=== PATIENT | female | born 2000 | race Caucasian/White ===

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

== ENCOUNTER 2019-06-15 18:57 | Emergency (ER) | payer SELFPAY ==
[2019-06-15 19:30] LABS: BASOPHILS % (AUTO) 0.2 %; EOSINOPHILS % (AUTO) 0.4 %; HGB - HEMOGLOBIN 11.4 g/dL (12.0-16.0); LYMPHOCYTES # (AUTO) 1.6 10^3/uL (1.5-3.5); LYMPHOCYTES % (AUTO) 18.5 %; MEAN CORPUSCULAR HEMOGLOBIN 29.1 pg (27.0-31.0); MEAN CORPUSCULAR HGB CONC 32.6 g/dL (32.0-36.0); MEAN CORPUSCULAR VOLUME 89.3 fL (81.0-99.0); MONOCYTES # (AUTO) 0.9 10^3/uL (0.0-1.0); NEUTROPHILS % (AUTO) 69.5 %; PLT - PLATELET COUNT 146 10^3/uL (130-450); RED BLOOD COUNT 3.92 10^6/uL (4.20-5.40); RED CELL DISTRIBUTION WIDTH 12.6 % (12.0-15.0); WHITE BLOOD COUNT 8.6 x10^3/uL (4.8-10.8)
[2019-06-15 19:36] LABS: MUDS CUTOFF CONCENTRATIONS CUTOFF CONC BELOW:
[2019-06-15 19:40] LABS: BILIRUBIN,URINE NEGATIVE (NEGATIVE); CLARITY,URINE CLEAR (CLEAR); GLUCOSE, URINE (UA) NEGATIVE (NEGATIVE); KETONES,URINE (UA) TRACE mg/dL (NEGATIVE); LEUKOCYTE ESTERASE, URINE TRACE (NEGATIVE); NITRITE,URINE NEGATIVE (NEGATIVE); OCCULT BLOOD,URINE NEGATIVE (NEGATIVE); PROTEIN,URINE TRACE mg/dL (NEGATIVE); UROBILINOGEN,URINE 0.2 (NORMAL) E.U./dL (NORMAL)
[2019-06-15 19:41] LABS: HCG UR QUAL NEGATIVE
[2019-06-15 19:41] LABS: ALBUMIN 4.3 g/dL (3.2-5.5); ALBUMIN/GLOBULIN RATIO 1.4 (1.0-2.2); ALKALINE PHOSPHATASE 50 IU/L (42-121); ALT ALANINE AMINOTRANSFERASE 13 IU/L (10-60); AST ASPARTATE AMINOTRANSFERASE 23 IU/L (10-42); BILIRUBIN,TOTAL 0.5 mg/dL (0.2-1.0); BUN - BLOOD UREA NITROGEN 11 mg/dL (6-20); CALCIUM 9.1 mg/dL (8.5-10.3); CARBON DIOXIDE - CO2 26 mmol/L (21-32); CHLORIDE 101 mmol/L (101-111); CREATININE 0.8 mg/dL (0.4-1.0); GFR - MDRD 91 (>89); GLUCOSE 128 mg/dL (70-100); LIPASE 25 U/L (22-51); SODIUM 137 mmol/L (135-145); TOTAL PROTEIN 7.3 g/dL (6.7-8.2)
[2019-06-15] MEDS ORDERED: diphenhydrAMINE INJ 50 MG/ML VIAL IVP STA (19:41)
[2019-06-15] MEDS ORDERED: METOCLOPRAMIDE 10 MG/2 ML VIAL IVP STA (19:41)
--- NOTE | 2019-06-15 19:45 | ED Physician Documentation ---
PD HPI FOCAL NEURO - Stated complaint Stated Complaint: L ARM NUMBNESS/HI BP - Chief complaint Chief Complaint: Neuro - History obtained from History obtained from: Patient - History of Present Illness Timing - onset: Other (This is a very pleasant 19-year-old woman who has a long history of migraines and "and "convulsions. She had a work-up at a neurologic office last year with negative EEG. She was told she did not have epilepsy. 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 Psych: Depression, Anxiety - Past Surgical History Past Surgical History: Yes - Present Medications Home Medications: Ambulatory Orders Medication Instructions Recorded Confirmed SUMAtriptan [Imitrex] 25 mg PO BID PRN #10 tablet 06/15/19 - Allergies Allergies/Adverse Reactions: Allergies Allergy/AdvReac Type Severity Reaction Status Date / Time cetirizine HCl * Allergy Itching Verified 06/15/19 19:04 [From [facility]] - Social History Does the pt smoke?: Yes Smoking Status: Current every day smoker Does the pt drink ETOH?: No Does the pt have substance abuse?: Yes - Immunizations Immunizations are current?: Yes - POLST Patient has POLST: No PD ED PE NORMAL - Vitals Vital signs reviewed: Yes - General General: Alert and oriented X 3, No acute distress - HEENT HEENT: PERRL, EOMI - Neck Neck: Supple, no meningeal sign, No bony TTP - Cardiac Cardiac: RRR, No murmur - Respiratory Respiratory: No respiratory distress, Clear bilaterally - Abdomen Abdomen: Normal bowel sounds, Soft, Non tender - Back Back: No CVA TTP, No spinal TTP - Derm Derm: Normal color, Warm and dry - Extremities Extremities: No edema, No calf tenderness / cord - Neuro Neuro: Alert and oriented X 3, Normal speech - Psych Psych: Normal mood, Normal affect Results - Vitals Vitals: Vital Signs - 24 hr 06/15/19 06/15/19 18:59 20:18 Temperature 36.8 C Heart Rate 105 H 74 Respiratory 17 14 Rate Blood Pressure 141/87 H 101/50 L O2 Saturation 100 96 Oxygen O2 Source Room air - Labs Labs: Laboratory Tests 06/15/19 06/15/19 06/15/19 19:24 19:24 19:30 WBC 8.6 RBC 3.92 L Hgb 11.4 L Hct 35.0 L MCV 89.3 MCH 29.1 MCHC 32.6 RDW 12.6 Plt Count 146 MPV 11.0 H Neut # (Auto) 6.0 Lymph # (Auto) 1.6 [place] # (Auto) 0.9 Eos # (Auto) 0.0 Baso # (Auto) 0.0 Absolute Nucleated RBC 0.00 Nucleated RBC % 0.0 Sodium 137 Potassium 3.2 L Chloride 101 Carbon Dioxide 26 Anion Gap 10.0 BUN 11 Creatinine 0.8 Estimated GFR (MDRD) 91 Glucose 128 H Calcium 9.1 Total Bilirubin 0.5 AST 23 ALT 13 Alkaline Phosphatase 50 Total Protein 7.3 Albumin 4.3 Globulin 3.0 Albumin/Globulin Ratio 1.4 Lipase 25 Urine Color Urine Clarity Urine pH Ur Specific [place] Urine Protein Urine Glucose (UA) Urine Ketones Urine Occult Blood Urine Nitrite Urine Bilirubin Urine Urobilinogen Ur Leukocyte Esterase Urine RBC Urine WBC Ur Squamous Epith Cells Urine Bacteria Ur Microscopic Review Urine Culture Comments Urine HCG, Qual Urine Opiates Screen NEGATIVE Ur Oxycodone Screen NEGATIVE Urine Methadone Screen NEGATIVE Ur Propoxyphene Screen NEGATIVE Ur Barbiturates Screen NEGATIVE Ur Tricyclics Screen NEGATIVE Ur Phencyclidine Scrn NEGATIVE Ur Amphetamine Screen NEGATIVE U Methamphetamines Scrn NEGATIVE U Benzodiazepines Scrn NEGATIVE Urine Cocaine Screen NEGATIVE U Cannabinoids Screen NEGATIVE Ethyl Alcohol < 5.0 06/15/19 19:30 WBC RBC Hgb Hct MCV MCH MCHC RDW Plt Count MPV Neut # (Auto) Lymph # (Auto) [place] # (Auto) Eos # (Auto) Baso # (Auto) Absolute Nucleated RBC Nucleated RBC % Sodium Potassium Chloride Carbon Dioxide Anion Gap BUN Creatinine Estimated GFR (MDRD) Glucose Calcium Total Bilirubin AST ALT Alkaline Phosphatase Total Protein Albumin Globulin Albumin/Globulin Ratio Lipase Urine Color YELLOW Urine Clarity CLEAR Urine pH 6.0 Ur Specific [place] 1.025 Urine Protein TRACE Urine Glucose (UA) NEGATIVE Urine Ketones TRACE Urine Occult Blood NEGATIVE Urine Nitrite NEGATIVE Urine Bilirubin NEGATIVE Urine Urobilinogen 0.2 (NORMAL) Ur Leukocyte Esterase TRACE H Urine RBC None Seen Urine WBC 0-3 Ur Squamous Epith Cells NONE SEEN Urine Bacteria None Seen Ur Microscopic Review INDICATED Urine Culture Comments INDICATED Urine HCG, Qual NEGATIVE Urine Opiates Screen Ur Oxycodone Screen Urine Methadone Screen Ur Propoxyphene Screen Ur Barbiturates Screen Ur Tricyclics Screen Ur Phencyclidine Scrn Ur Amphetamine Screen U Methamphetamines Scrn U Benzodiazepines Scrn Urine Cocaine Screen U Cannabinoids Screen Ethyl Alcohol - Rads (name of study) CT Head Radiology: EMP read contemporaneously (normal) PD MEDICAL DECISION MAKING - ED course ED course: 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 After the administration of Reglan and Benadryl she was quite sleepy but her headache was much better and the neurologic symptoms had resolved. She had never had cranial imaging before so this was done and negative. Departure - Departure Disposition: 01 Home, Self Care Clinical Impression: Migraine Qualifiers: Migraine type: with aura Status migrainosus presence: with status migrainosus Intractability: not intractable Qualified Code(s): G43.101 - Migraine with aura, not intractable, with status migrainosus Condition: Good Record reviewed to determine appropriate education?: Yes Instructions: ED Headache Migraine Prescriptions: SUMAtriptan [Imitrex] 25 mg PO BID PRN #10 tablet PRN Reason: Headache Comments: Call your doctor to arrange a follow-up appointment, make the next available appointment. In the interim, return anytime if worse or if new symptoms develop. Forms: Activity restrictions
[2019-06-15 19:51] LABS: AMPHETAMINE SCREEN,URINE NEGATIVE (NEGATIVE); BACTERIA,URINE None Seen /HPF (None Seen); BENZODIAZEPINES SCREEN, URINE NEGATIVE (NEGATIVE); COCAINE SCREEN URINE NEGATIVE (NEGATIVE); METHADONE SCREEN, URINE NEGATIVE (NEGATIVE); METHAMPHETAMINES SCREEN, URINE NEGATIVE (NEGATIVE); OPIATE SCREEN, URINE NEGATIVE (NEGATIVE); OXYCODONE SCREEN, URINE NEGATIVE (NEGATIVE); PROPOXYPHENE SCREEN, URINE NEGATIVE (NEGATIVE); RBC,URINE None Seen /HPF (0-5); SQUAMOUS EPITHELIAL CELL,UR NONE SEEN (<= Few); TRICYCLIC ANTIDEPRESSANT,URINE NEGATIVE (NEGATIVE)
[2019-06-15 20:19] VITALS: BP 101/50
--- NOTE | 2019-06-15 20:58 | CT Report ---
Reason: headache Procedure Date: 06/15/2019 Accession Number: [id number] / [id number] Procedure: CT - HEAD WO CPT Code: FULL RESULT: EXAM: CT HEAD EXAM DATE: 06/15/2019 08:14 PM. CLINICAL HISTORY: Headache. COMPARISON: None. TECHNIQUE: Multiaxial CT images were obtained from the foramen magnum to the vertex. Reformats: Sagittal and coronal. IV contrast: None. In accordance with CT protocol optimization, one or more of the following dose reduction techniques were utilized for this exam: automated exposure control, adjustment of mA and/or KV based on patient size, or use of iterative reconstructive technique. FINDINGS: PARENCHYMA: No acute hemorrhage, transcortical infarction or mass. Normal chanel-white differentiation. EXTRA-AXIAL SPACES: No extra-axial fluid collections. No midline shift. VENTRICLES/SULCI: Normal for patient age. VASCULAR STRUCTURES: The visible vascular structures are unremarkable. SINUSES: The visible paranasal sinuses and mastoid air cells are unremarkable. ORBITS: Unremarkable. BONES: No displaced acute calvarial fracture. OTHER: None. IMPRESSION: No acute intracranial findings. RADIA
== END 2019-06-15 21:14 | disposition home or self-care (01) ==
LOC: ED 18:57
DX: G43.101 Migraine with aura, not intractable, with status migrainosus (principal); F17.200 Nicotine dependence, unspecified, uncomplicated
CPT/HCPCS: 36415; 70450; 80053; 80320; 81001; 81025; 83690; 85025; 87086; 99284; J1200; J2765; 80306; 81003

== ENCOUNTER 2020-06-11 13:14 | Outpatient (CLI) | payer MEDICAID ==
[2020-06-11 16:07] LABS: BILIRUBIN,URINE NEGATIVE (NEGATIVE); GLUCOSE, URINE (UA) NEGATIVE (NEGATIVE); KETONES,URINE (UA) NEGATIVE (NEGATIVE); LEUKOCYTE ESTERASE, URINE NEGATIVE (NEGATIVE); NITRITE,URINE NEGATIVE (NEGATIVE); OCCULT BLOOD,URINE NEGATIVE (NEGATIVE); PROTEIN,URINE NEGATIVE (NEGATIVE); UROBILINOGEN,URINE 0.2 (NORMAL) E.U./dL (NORMAL)
[2020-06-11 16:14] LABS: CLARITY,URINE CLEAR (CLEAR)
[2020-06-11 16:37] LABS: BACTERIA,URINE None Seen /HPF (None Seen); RBC,URINE None Seen /HPF (0-5); SQUAMOUS EPITHELIAL CELL,UR FEW Squamous (<= Few)
== END 2020-06-11 23:59 | disposition home or self-care (01) ==
LOC: LAB.R 13:14
PROVIDERS: ATTEND Advanced Practice Midwife
DX: Z34.90 Encounter for supervision of normal pregnancy, unspecified, unspecified trimester (principal); Z36.89 Encounter for other specified antenatal screening
CPT/HCPCS: 81001; 87086

== ENCOUNTER 2020-06-25 23:23 | Emergency (ER) | payer MEDICAID ==
[2020-06-26 00:20] LABS: HCG UR QUAL POSITIVE
--- NOTE | 2020-06-26 00:58 | ED Physician Documentation ---
PD HPI FEMALE - Stated complaint Stated Complaint: BLEEDING/12 WKS PREG - Chief complaint Chief Complaint: Abd Pain - History obtained from History obtained from: Patient - History of Present Illness Timing - onset: Enter time (22:30) Timing - details: Abrupt onset Pain level max: 1 Associated symptoms: Pelvic pain (cramping). 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 thus, her current pregn) Recently seen: Not recently seen - Additional information Additional information: this is her first confirmed . approximately 12 weeks . riccardo, while lying in bed, had mild pelvic cramping, then noted small amount vaginal bleeding, dark red without clots. she had small amount systems spec blood on toilet paper after urinating few weeks ago, single episode Review of Systems Constitutional: reports: Reviewed and negative Cardiac: reports: Reviewed and negative Respiratory: reports: Reviewed and negative GI: denies: Abdominal Pain, Nausea, Vomiting, Constipation, Diarrhea : reports: Vaginal bleeding, Now EGA (12 weeks). 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: Ovarian cysts Psych: Depression, Anxiety - Past Surgical History Past Surgical History: Yes - Present Medications Home Medications: Ambulatory Orders Medication Instructions Recorded Confirmed SUMAtriptan [Imitrex] 25 mg PO BID PRN #10 tablet 06/15/19 - Allergies Allergies/Adverse Reactions: Allergies Allergy/AdvReac Type Severity Reaction Status Date / Time cetirizine HCl * Allergy Itching Verified 06/25/20 23:33 [From [facility], [place]] - Social History Does the pt smoke?: No Smoking Status: Former smoker Does the pt drink ETOH?: No Does the pt have substance abuse?: Yes - Immunizations Immunizations are current?: Yes - POLST Patient has POLST: No PD ED PE NORMAL - Vitals Vital signs reviewed: Yes - General General: Alert and oriented X 3, No acute distress, Well developed/nourished - Cardiac Cardiac: RRR, No murmur - Respiratory Respiratory: No respiratory distress, Clear bilaterally - Abdomen Abdomen: Soft, Non tender, Non distended - Back Back: No CVA TTP Results - Vitals Vitals: Vital Signs - 24 hr 06/25/20 06/26/20 06/26/20 23:28 01:44 04:15 Temperature 36.8 C 37.0 C 36.8 C Heart Rate 88 65 72 Respiratory 16 14 16 Rate Blood Pressure 129/82 H 105/59 L 109/66 O2 Saturation 100 100 98 Oxygen O2 Source Room air - Labs Labs: Laboratory Tests 06/26/20 06/26/20 00:04 01:59 Ur Specific [place] 1.025 Urine HCG, Qual POSITIVE Blood Type O POSITIVE - Rads (name of study) pelvic US Radiology: Prelim report reviewed, See rad report PD MEDICAL DECISION MAKING - ED course Complexity details: reviewed results, re-evaluated patient, considered differential, d/w patient Departure - Departure Disposition: 01 Home, Self Care Clinical Impression: Threatened Condition: Good Instructions: ED Miscarriage Poss Comments: Your blood type is O Positive. Your pelvic ultrasound is normal, showing a healthy without evidence of any complications. Because you are having some pelvic cramping and vaginal bleeding, you have been provided printed instructions regarding the potential for possible miscarriage, but realize that it is not unusual to have bleeding/cramping early in an otherwise normal . Discharge Date/Time: 06/26/20 04:16
[2020-06-26 04:16] VITALS: BP 109/66
--- NOTE | 2020-06-26 10:23 | Ultrasound Report ---
PROCEDURE: OB First Trimester INDICATIONS: 12 weeks ; pelvic cramping, vag. bleeding OUTSIDE/PRIOR DATING DATA: Last menstrual period (LMP): 04/02/2020. LMP-based estimated date of delivery (BRANDIE): 01/07/2021. First dating scan (date and location): 05/27/2020. Estimated date of delivery (BRANDIE) from first dating scan: 01/07/2021. TECHNIQUE: Real-time scanning was performed of the fetus and maternal pelvic organs, with image documentation. COMPARISON: 05/27/2020 FINDINGS: Embryo: Single living intrauterine has a heart rate of 165 bpm. The crown-rump length is 5 .5 cm corresponding to a 12 week 1 day gestation. The placenta is developing anterior. No retroplacen caroline hemorrhage. Measurement variability in dating: +/- 4 weeks by LMP, +/- 7 days by mean sac diameter (use before 6 weeks gestation if crown-rump length not able to be measured), +/- 5 days by crown-rump length (6-12 weeks gestation). Maternal organs: The cervix is closed. No thad-Gestational hemorrhage. Ovaries appear normal with an involuting left ovarian corpus luteum. IMPRESSION: 1. Single living intrauterine . 2. Appropriate growth since the prior study. 3. Closed cervix and no subchorionic hemorrhage. 4. Concordant with preliminary report. Reviewed by: Tonya Vaca MD on 06/26/2020 10:22 AM PDT Approved by: Tonya Vaca MD on 06/26/2020 10:22 AM PDT Station ID: [id number]
== END 2020-06-26 04:16 | disposition home or self-care (01) ==
LOC: ED 23:23
DX: O20.0 Threatened abortion (principal); Z3A.12 12 weeks gestation of pregnancy; Z87.891 Personal history of nicotine dependence
CPT/HCPCS: 36415; 76801; 81025; 86900; 86901; 99284

== ENCOUNTER 2020-07-03 10:00 | Outpatient (CLI) | payer MEDICAID ==
[2020-07-03 11:45] LABS: BASOPHILS # (AUTO) 0.1 10^3/uL (0.0-0.1); BASOPHILS % (AUTO) 0.6 %; EOSINOPHILS # (AUTO) 0.2 10^3/uL (0.0-0.7); EOSINOPHILS % (AUTO) 2.6 %; HGB - HEMOGLOBIN 12.1 g/dL (12.0-16.0); LYMPHOCYTES # (AUTO) 1.6 10^3/uL (1.5-3.5); LYMPHOCYTES % (AUTO) 20.3 %; MEAN CORPUSCULAR HEMOGLOBIN 30.8 pg (27.0-31.0); MEAN CORPUSCULAR HGB CONC 34.9 g/dL (32.0-36.0); MEAN CORPUSCULAR VOLUME 88.3 fL (81.0-99.0); MEAN PLATELET VOLUME 11.4 fL (7.9-10.8); MONOCYTES # (AUTO) 0.6 10^3/uL (0.0-1.0); MONOCYTES % (AUTO) 7.4 %; NEUTROPHILS # (AUTO) 5.5 10^3/uL (1.5-6.6); NEUTROPHILS % (AUTO) 68.6 %; PLT - PLATELET COUNT 177 10^3/uL (130-450); RED BLOOD COUNT 3.93 10^6/uL (4.20-5.40); RED CELL DISTRIBUTION WIDTH 12.2 % (12.0-15.0)
[2020-07-04 12:03] LABS: HEPATITIS B SURFACE ANTIGEN NON-REACTIVE (NON-REACTIVE); HEPATITIS C ANTIBODY NON-REACTIVE (NON-REACTIVE)
[2020-07-04 13:02] LABS: HIV AG/AB 4TH GEN NON-REACTIVE (NON-REACTIVE)
== END 2020-07-03 10:01 | disposition home or self-care (01) ==
LOC: LAB 10:00
PROVIDERS: ATTEND Advanced Practice Midwife
DX: Z34.90 Encounter for supervision of normal pregnancy, unspecified, unspecified trimester (principal); Z36.89 Encounter for other specified antenatal screening
CPT/HCPCS: 36415; 81599; 85025; 86762; 86787; 86803; 86850; 86900; 86901; 87340; 87389

== ENCOUNTER 2020-08-28 09:43 | Outpatient (CLI) | payer MEDICAID ==
--- NOTE | 2020-08-28 11:23 | Ultrasound Report ---
PROCEDURE: OB Detailed Eval INDICATIONS: SCREENING OUTSIDE/PRIOR DATING DATA: Last menstrual period (LMP): 04/02/2020. LMP-based estimated date of delivery (BRANDIE): 01/07/2021. First dating scan (date and location): 05/27/2020. Estimated date of delivery (BRANDIE) from first dating scan: 01/07/2021 +/- 5 days.. TECHNIQUE: Real-time scanning was performed of the fetus, with image documentation and biometric measurements. Endovaginal scanning: Not needed COMPARISON: All prior OB ultrasound studies for this . FINDINGS: General: A single living intrauterine gestation is present. Presentation: Variable at this time Placenta: Placental position is anterior, without previa. Amniotic fluid index: 16.8 cm, 72nd percentile for gestational age. heart rate: 165 beats per minute. Maternal cervical canal: 3.2 cm long; normal length is 2.5 cm or more. biometrics: Biparietal diameter: 5.1 cm, 21 weeks 3 days Head circumference: 18.9 cm, 21 weeks 0 days Abdominal circumference: 16.0 cm, 21 weeks 1 day Femur length: 3.1 cm, 19 weeks 5 days Estimated gestational age from initial scan: 21 weeks 1 day. Composite gestational age from present scan: 20 weeks 5 days Estimated weight and percentile: 360 g, 17th percentile Measurement variability in biometric dating: +/- 10 days from 12-20 weeks gestation, +/- 2 weeks from 20-30 weeks gestation, +/- 3 weeks at 30 weeks gestation or later. Anatomic survey: Neuro: Ventricles are normal at less than 10 mm. Cisterna magna is normal at 3-11 mm. Cerebellum i s normal in size and morphology. Nuchal skin fold: Normal at less than 6 mm between 14 and 20 weeks gestational age. Face: Nose and lips, facial profile are normal. Spine: No evidence for spina bifida. Heart: 4-chambered heart is present, with normal ventricular outflow tracts. Diaphragm: Diaphragm is intact. Stomach: Left-sided stomach is present. Kidneys: No hydronephrosis. Normal is less than 5 mm in 2nd trimester, less than 7 mm in 3rd trimester. Cord: 3 vessel cord has orthotopic insertion. Bladder: Normal in size. Extremities: All 4 extremities are visualized. IMPRESSION: Current presentation is variable. Appropriate interval growth, normal amniotic fluid volume. No anomaly seen. Delivery date is projected to be centered on 01/07/2021, +/- 5 days. Reviewed by: Darci Linn MD on 08/28/2020 11:21 AM PST Approved by: Darci Linn MD on 08/28/2020 11:21 AM PST Station ID: [id number]
== END 2020-08-28 09:44 | disposition home or self-care (01) ==
LOC: DI 09:43
PROVIDERS: ATTEND Nurse Practitioner Obstetrics & Gynecology
DX: Z34.92 Encounter for supervision of normal pregnancy, unspecified, second trimester (principal); Z36.89 Encounter for other specified antenatal screening
CPT/HCPCS: 76811

== ENCOUNTER 2020-10-01 07:39 | Outpatient (CLI) | payer MEDICAID ==
[2020-10-01 08:52] LABS: BILIRUBIN,URINE NEGATIVE (NEGATIVE); GLUCOSE, URINE (UA) NEGATIVE (NEGATIVE); KETONES,URINE (UA) NEGATIVE (NEGATIVE); LEUKOCYTE ESTERASE, URINE NEGATIVE (NEGATIVE); NITRITE,URINE NEGATIVE (NEGATIVE); OCCULT BLOOD,URINE NEGATIVE (NEGATIVE); PROTEIN,URINE NEGATIVE (NEGATIVE); UROBILINOGEN,URINE 0.2 (NORMAL) E.U./dL (NORMAL)
[2020-10-01 08:55] LABS: CLARITY,URINE HAZY (CLEAR)
[2020-10-01 08:59] LABS: BASOPHILS # (AUTO) 0.1 10^3/uL (0.0-0.1); BASOPHILS % (AUTO) 0.5 %; EOSINOPHILS # (AUTO) 0.1 10^3/uL (0.0-0.7); EOSINOPHILS % (AUTO) 0.5 %; HGB - HEMOGLOBIN 11.2 g/dL (12.0-16.0); LYMPHOCYTES # (AUTO) 1.2 10^3/uL (1.5-3.5); LYMPHOCYTES % (AUTO) 10.6 %; MEAN CORPUSCULAR HEMOGLOBIN 30.9 pg (27.0-31.0); MEAN CORPUSCULAR VOLUME 90.9 fL (81.0-99.0); MEAN PLATELET VOLUME 10.6 fL (7.9-10.8); MONOCYTES # (AUTO) 0.9 10^3/uL (0.0-1.0); MONOCYTES % (AUTO) 7.8 %; NEUTROPHILS # (AUTO) 8.6 10^3/uL (1.5-6.6); NEUTROPHILS % (AUTO) 78.3 %; PLT - PLATELET COUNT 168 10^3/uL (130-450); RED BLOOD COUNT 3.62 10^6/uL (4.20-5.40); RED CELL DISTRIBUTION WIDTH 13.4 % (12.0-15.0)
[2020-10-01 09:04] LABS: BACTERIA,URINE Few /HPF (None Seen); RBC,URINE 0-5 /HPF (0-5); SQUAMOUS EPITHELIAL CELL,UR MOD Squamous (<= Few)
[2020-10-01 09:09] LABS: ALBUMIN 3.5 g/dL (3.2-5.5); BILIRUBIN,TOTAL 0.4 mg/dL (0.2-1.0); CALCIUM 9.3 mg/dL (8.5-10.3); CREATININE 0.4 mg/dL (0.4-1.0); TOTAL PROTEIN 6.9 g/dL (6.7-8.2)
[2020-10-01 09:23] LABS: CREATININE,URINE 23.1 mg/dL
[2020-10-01 09:24] LABS: TOTAL PROTEIN,URINE TIMED < 6 mg/dL
[2020-10-01 09:58] VITALS: BP 124/74
[2020-10-01 10:21] LABS: C. PNEUMONIAE- RESP PCR PANEL NOT DETECTED
[2020-10-01 10:54] LABS: CANDIDA GROUP DNA NEGATIVE (NEGATIVE); CANDIDA KRUSEI DNA NEGATIVE (NEGATIVE); TRICHOMONAS VAGINALIS DNA NEGATIVE (NEGATIVE)
--- NOTE | 2020-10-01 11:00 | PROVIDER PROGRESS NOTE ---
- HPI Chief Complaint: Pain, non-labor Current : Current EDU 01/07/21 Gestation 26 Weeks and 0 Days 1 Para 0 Vital Signs Temperature 36.9 C 10/01/20 07:57 Heart Rate 111 H 10/01/20 07:57 Respiratory Rate 24 10/01/20 07:57 Blood Pressure 119/86 H 10/01/20 07:57 O2 Saturation 99 10/01/20 07:57 Temperature 36.9 C 10/01/20 08:02 Heart Rate 85 10/01/20 09:58 Respiratory Rate 18 10/01/20 09:58 Blood Pressure 124/74 10/01/20 09:58 O2 Saturation 98 10/01/20 09:58 - Procedures OB Procedure Performed: NST Diagnosis/Indication for NST: Other - Plan Plan: S: Malissa is a 22yo @ 26.0wks gestation by LMP c/w 7.6wk U/S presents to [facility] with c/o menstrual like cramping, RUQ pain, headache, SOB with exertion, and intermittent dizziness. She reports intermittent menstrual-like cramping since last night which she noted most significant this morning when she woke up. She reports the discomfort seems to take her breath away and lasts approximately 7-10 seconds and then resolves. She denies vaginal bleeding or leakage of fluid. She reports +FM. She reports a dull RUQ pain that she notices most when she is laying down at the end of the day. She describes the pain as a dull ache and denies feeling sharp pain. She is unable to correlate the pain with any activity and denies improvement or worsening with eating. She states her body has felt somewhat hot today but has not been febrile and she is afebrile at this time. She states her SOB mostly occurs with exertion and she notices her heart rate increasing when she walks even short distances. She denies feeling faint but does report when this happens she feels slightly dizzy. She denies N/V. She denies diarrhea or constipation. She states she did have intercourse last night. 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 She has no known close contacts with any positive COVID-19 individuals or sick people. 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 She states with the plexiglass barrier, both herself and the patient being masked and distant, and her time of exposure being brief, there was not noted to be a significant concern. O: BP 117-124/70-86; HR 111 initially but decreased to 85 with rest. O2 97-99% on room air. T 36.9 Normocephalic, atraumatic. PERRLA, Heart RRR w/o M/G/R, lungs CTAB, abdomen gravid, soft, and nontender. No tenderness, guarding or rebound tenderness noted upon palpation. Bilateral LE's no edema. NST meets criteria for reactivity at 26wks gestation. FHR baseline 130s, moderate variability, + accels, no decels No contractions palpated or appreciated via tocometry FFN deferred secondary to recent intercourse. UA: protein - neg nitrite - neg leukocyte - neg squamous epithelial cells - neg urine bacteria - few specific gravity - 1.010 urine culture - not indicated CMP: Creatinine 0.4 GFR 201 AST 20 ALT 16 Urine protein/creatinine ratio - unreportable CBC: WBC 11.0 Hgb 11.2 Hct 32.9 PLT 168 Rapid COVID-19 - negative Full Respiratory PCR panel - NEGATIVE A/P: 20yo @ 26.0wks gestation by LMP c/w 7.6wk U/S 1. RUQ pain - non pathologic. Reassured by BP normotensive. All labs WNL. Discussed normal aches and pains/discomforts of with patient at length and reviewed when to present. Exam and pt pain description r/o concern for gallbladder. 2. SEWELL - non pathologic. Reassured again by normal BPs and all labs WNL. Advised increased fluid intake and rest. Discusses addition of fluid with electrolytes. Encouraged Tylenol 1000mg q 8hrs PRN headache. 3. Shortness of breath - appears to be nonpathologic as patient's O2 saturation are WNL, lung sounds are clear to all quadrants bilaterally. Infection labs WNL. Advised pt to rest and hydrate over the next 2 days. Pt has f/u appt early next week - advised her to keep this appt and if symptoms persist or worsen, please return. Pt has emergency contact information. Consider Holter monitor if sympt oms persist. Pt verbalized understanding and agrees to above plan. She denies further questions or concerns at this time.
== END 2020-10-01 10:35 | disposition home or self-care (01) ==
LOC: WFO 07:39 → FBP 07:41 → WFO 10:35
PROVIDERS: ATTEND Nurse Practitioner Obstetrics & Gynecology
DX: O99.891 Other specified diseases and conditions complicating pregnancy (principal); R10.11 Right upper quadrant pain; R51.9 Headache, unspecified; R06.02 Shortness of breath; Z3A.26 26 weeks gestation of pregnancy; Z20.828 Contact with and (suspected) exposure to other viral communicable diseases
CPT/HCPCS: 0202U; 80053; 81001; 82570; 84156; 85025; 87481; 87661; 87801; 99213; 87086

== ENCOUNTER 2020-10-09 14:55 | Outpatient (CLI) | payer MEDICAID ==
[2020-10-09 16:22] LABS: HGB - HEMOGLOBIN 10.6 g/dL (12.0-16.0); MEAN CORPUSCULAR HEMOGLOBIN 30.5 pg (27.0-31.0); MEAN CORPUSCULAR HGB CONC 32.7 g/dL (32.0-36.0); MEAN CORPUSCULAR VOLUME 93.1 fL (81.0-99.0); MEAN PLATELET VOLUME 10.7 fL (7.9-10.8); RED BLOOD COUNT 3.48 10^6/uL (4.20-5.40); RED CELL DISTRIBUTION WIDTH 13.2 % (12.0-15.0); WHITE BLOOD COUNT 11.8 x10^3/uL (4.8-10.8)
== END 2020-10-09 14:56 | disposition home or self-care (01) ==
LOC: LAB 14:55
PROVIDERS: ATTEND Advanced Practice Midwife
DX: Z34.90 Encounter for supervision of normal pregnancy, unspecified, unspecified trimester (principal); Z36.89 Encounter for other specified antenatal screening
CPT/HCPCS: 36415; 82950; 85027

== ENCOUNTER 2020-10-13 08:36 | Outpatient (CLI) | payer MEDICAID ==
--- NOTE | 2020-10-13 18:49 | Ultrasound Report ---
PROCEDURE: OB F/U or Repeat INDICATIONS: UTERINE SIZE/DATE DISCREPANCY OUTSIDE/PRIOR DATING DATA: Last menstrual period (LMP): 04/02/2020. LMP-based estimated date of delivery (BRANDIE): 01/07/2021. First dating scan (date and location): 05/27/2020. Estimated date of delivery (BRANDIE) from first dating scan: 01/07/2021. TECHNIQUE: Real-time scanning was performed of the fetus, with image documentation and biometric measurements. Endovaginal scanning: Not performed COMPARISON: Multiple priors, the most recent from 08/28/2020 FINDINGS: General: A single living intrauterine gestation is present. Presentation: Vertex Placenta: Placental position is anterior, without previa. Amniotic fluid index: 14 cm, 42nd percentile for gestational age. heart rate: 143 beats per minute. Maternal cervical canal: 3.7 cm long; normal length is 2.5 cm or more. biometrics: Biparietal diameter: 7.0 cm, 28 weeks, 1 day Head circumference: 25.7 cm, 27 weeks, 6 days Abdominal circumference: 22.3 cm, 26 weeks, 5 days Femur length: 4.6 cm, 25 weeks, 2 days , 0.9 percentile. Humerus length 4.2 cm, 25 weeks, 0 days, 0.7 percentile Estimated gestational age from initial scan: 27 weeks, 5 days. Composite gestational age from present scan: 26 weeks, 4 days Estimated weight and percentile: 930 g, sixth percentile Measurement variability in biometric dating: +/- 10 days from 12-20 weeks gestation, +/- 2 weeks from 20-30 weeks gestation, +/- 3 weeks at 30 weeks gestation or more. Other: Systolic to diastolic umbilical artery ratios are 3.8, 3.1, and 2.8.. IMPRESSION: 1. Single living intrauterine . 2. Since the prior study, there is been asymmetric and less than expected interval growth. Composite gestational age is 26 weeks, 4 days, 8 days behind the expected, but the estimated weight is at the 6th percentile. 3. Additionally, the femur length and humerus length are less than the 1st percentile raising possibi lity of other syndromes. 4. S/D umbilical artery ratio of 3.7 in the cord at the insertion. 5. Consider referral to maternal medicine. Reviewed by: Tonya Vaca MD on 10/13/2020 6:48 PM PST Approved by: Tonya Vaca MD on 10/13/2020 6:48 PM PST Station ID: [id number]
== END 2020-10-13 08:37 | disposition home or self-care (01) ==
LOC: DI 08:36
PROVIDERS: ATTEND Advanced Practice Midwife
DX: O26.842 Uterine size-date discrepancy, second trimester (principal); Z3A.26 26 weeks gestation of pregnancy

== ENCOUNTER 2020-10-22 17:01 | Observation (INO) | payer MEDICAID ==
[2020-10-22 17:57] LABS: BILIRUBIN,URINE NEGATIVE (NEGATIVE); GLUCOSE, URINE (UA) NEGATIVE (NEGATIVE); KETONES,URINE (UA) NEGATIVE (NEGATIVE); LEUKOCYTE ESTERASE, URINE TRACE (NEGATIVE); NITRITE,URINE NEGATIVE (NEGATIVE); OCCULT BLOOD,URINE NEGATIVE (NEGATIVE); PROTEIN,URINE NEGATIVE (NEGATIVE); UROBILINOGEN,URINE 0.2 (NORMAL) E.U./dL (NORMAL)
[2020-10-22 17:58] LABS: CLARITY,URINE HAZY (CLEAR)
[2020-10-22 18:13] LABS: RUPTURE OF MEMBRANES PLUS NEGATIVE (NEGATIVE)
[2020-10-22 18:20] LABS: BACTERIA,URINE Few /HPF (None Seen); RBC,URINE 0-5 /HPF (0-5); SQUAMOUS EPITHELIAL CELL,UR MANY Squamous (<= Few)
--- NOTE | 2020-10-22 19:30 | PROVIDER PROGRESS NOTE ---
- HPI Chief Complaint: Leakage of vaginal fluid Current : Current EDU 01/07/21 Gestation 29 Weeks and 0 Days 1 Para 0 Vital Signs Temperature 36.9 C 10/22/20 17:20 Heart Rate 77 10/22/20 17:20 Respiratory Rate 18 10/22/20 17:20 Blood Pressure 123/67 10/22/20 17:20 O2 Saturation 99 10/22/20 17:20 Temperature 36.9 C 10/22/20 17:20 Heart Rate 77 10/22/20 17:20 Respiratory Rate 18 10/22/20 17:20 Blood Pressure 123/67 10/22/20 17:20 O2 Saturation 99 10/22/20 17:20 - Procedures NST Procedure: NST Procedure Start Date 10/22/20 Start Time 17:18 Stop Time 17:57 Vibroacoustic Stimulation Used No Patient States Movement Yes - Plan Plan: S: Malissa is a 20yo at 29.0wks gestation who presents to labor and delivery triage today for leakage of vaginal fluid. She reports she felt her first "gush" on ankush, and then again the next night, then somewhat inte rmittently. She has not consistently needed a pad, but does report copious amounts of vaginal discharge. She reports movement, and denies any vaginal bleeding or contractions. She denies anything in the vagina for over 24 hours. Afebrile O: On admit to triage: Nitrizine- neg ROM+- neg Wet mount- neg GC/CT- sent Speculum exam per RN- no pooling, no visual changes to the cervix FFN- positive UA neg at 1900 per CNM: Nitrizine- positive Pooling- neg Valsalva- neg ROM+- second swab collected, awaiting results SVE: 1.5/70/-2/mid/soft FHTs: 135 baseline; moderate variability, 10x10 accels, no decels Utx: Uterine irritability noted, approx q 3-5mins. Pt denies sensation. Soft to palpation. A: 20yo at 29.0 wks- rule out ROM vs PTL FFN- positive Nitrizine- positive P: Continuous monitoring Await ROM+ Transvaginal US for cervical length- STAT US Limited for VALORIE- STAT MD consulted
[2020-10-22 19:40] LABS: RUPTURE OF MEMBRANES PLUS NEGATIVE (NEGATIVE)
[2020-10-22] MEDS ORDERED: BETAMETHASONE 30 MG/5 ML VIAL IM ONE (20:24)
[2020-10-22] MEDS ORDERED: LACTATED RINGERS 1,000 ML IV ONE (20:29)
--- NOTE | 2020-10-22 20:54 | Ultrasound Report ---
PROCEDURE: OB Limited INDICATIONS: VALORIE OUTSIDE/PRIOR DATING DATA: Last menstrual period (LMP): 04/02/2020. LMP-based estimated date of delivery (BRANDIE): 01/07/2021. First dating scan (date and location): 05/27/2020. Estimated date of delivery (BRANDIE) from first dating scan: 01/07/2021. TECHNIQUE: Real-time scanning was performed of the fetus, with image documentation. Endovaginal scanning: Performed. COMPARISON: 10/13/2020, 08/28/2020, 06/26/2020, 05/27/2020. FINDINGS: A single living intrauterine gestation is present. Presentation: Cephalic Placenta: Placental position is anterior, without previa. Amniotic fluid index: 15.4 cm, 57th percentile for gestational age. heart rate: 149 beats per minutes. Maternal cervical canal: Approximately 0.4 cm long; normal length is 2.5 cm or more. There is marked funneling along the internal cervical os. There is also a small amount of endocervical fluid. Estimated gestational age from initial scan: 29 weeks 0 days. IMPRESSION: 1. Single living imaging demonstrated in cephalic position. 2. Marked foreshortening of the cervix with a close segment measuring approximately 0.4 cm in length which also demonstrates a small amount of intermittent endocervical fluid. Marked cervical funneling is demonstrated along the internal os. The findings are highly suspicious for an incompetent cervix a nd correlation is recommended with clinical exam. 3. Amniotic fluid index within normal limits. Preliminary report given by the space technologist to nurse Sara Parikh on 10/22/2020 at 8:10 PM. Reviewed by: Vickey Nieto MD on 10/22/2020 8:53 PM PST Approved by: Vickey Nieto MD on 10/22/2020 8:53 PM PST Station ID: [id number]
--- NOTE | 2020-10-22 21:31 | PROVIDER PROGRESS NOTE ---
Subjective - Prog Note Date Prog Note Date: 10/22/20 Prog Note Time: 21:24 - Subjective Pt reports feeling: No change Subjective: S: Malissa is resting in bed with jacob Mendez supportive at bedside. She reports some vaginal discomfort after the US and SVEs. Denies abdominal discomfort. O: US findings: VALORIE: 15.4, 56.8% (max vertical pocket 4.6cm) Cervical length- .44cm Placenta- intact 2100: SVE: 1.5/70/-2/mid/soft- cervical body is felt around fingertip approx 1.5-2cm. Soft to palpation. head felt on digital exam FHTs: 135 baseline; moderate variability, 10x10 accels, no decels Utx: Uterine irritability noted, decreased in frequency. Pt denies sensation. Soft to palpation. Betamethasone 12mg IM dose 1 of 2 given at approx 2030, second dose in 24 hours A: 20yo at 29.0 wks- threatened PTL VALORIE- wnl, not suspecting ROM FFN- positive No cervical change MD consulted P: Monitoring for 30 mins Q4h (so 2100, 0100, 0500, and approx 0800), or anytime uterine activity is reported by patient Observation status in hospital overnight Will recheck SVE in AM, or sooner PRN Consult with MFM in AM If uterine activity or cervical change, will consider nifidipine and transfer of care to higher level facility Objective - Vital Signs/Intake & Output Vital Signs: Vital Signs x48h Temp Pulse Resp BP Pulse Ox 10/22/20 19:28 37.3 C 77 16 123/81 H 100 10/22/20 17:20 36.9 C 77 18 123/67 99 - Lab Results Other Labs: Lab Results x24hrs 10/22/20 10/22/20 10/22/20 Range/Units 19:09 17:28 17:28 Urine Color Urine Clarity (CLEAR) Urine pH (5.0-7.5) PH Ur Specific [place] (1.002-1.030) Urine Protein (NEGATIVE) mg/dL Urine Glucose (UA) (NEGATIVE) mg/dL Urine Ketones (NEGATIVE) mg/dL Urine Occult Blood (NEGATIVE) Urine Nitrite (NEGATIVE) Urine Bilirubin (NEGATIVE) Urine Urobilinogen (NORMAL) E.U./dL Ur Leukocyte Esterase (NEGATIVE) Urine RBC (0-5) /HPF Urine WBC (0-5) /HPF Ur Squamous Epith Cells (<= Few) Urine Bacteria (None Seen) /HPF Urine Culture Comments Membranes Rupture NEGATIVE NEGATIVE (NEGATIVE) Fibronectin POSITIVE (NEGATIVE) 10/22/20 Range/Units 17:10 Urine Color YELLOW Urine Clarity HAZY (CLEAR) Urine pH 6.0 (5.0-7.5) PH Ur Specific [place] 1.025 (1.002-1.030) Urine Protein NEGATIVE (NEGATIVE) mg/dL Urine Glucose (UA) NEGATIVE (NEGATIVE) mg/dL Urine Ketones NEGATIVE (NEGATIVE) mg/dL Urine Occult Blood NEGATIVE (NEGATIVE) Urine Nitrite NEGATIVE (NEGATIVE) Urine Bilirubin NEGATIVE (NEGATIVE) Urine Urobilinogen 0.2 (NORMAL) (NORMAL) E.U./dL Ur Leukocyte Esterase TRACE H (NEGATIVE) Urine RBC 0-5 (0-5) /HPF Urine WBC 0-3 (0-5) /HPF Ur Squamous Epith Cells MANY Squamous H (<= Few) Urine Bacteria Few (None Seen) /HPF Urine Culture Comments NOT INDICATED Membranes Rupture (NEGATIVE) Fibronectin (NEGATIVE)
[2020-10-22 22:11] LABS: CANDIDA GROUP DNA NEGATIVE (NEGATIVE); CANDIDA KRUSEI DNA NEGATIVE (NEGATIVE); TRICHOMONAS VAGINALIS DNA NEGATIVE (NEGATIVE)
[2020-10-22 22:54] LABS: TRICHOMONAS VAGINALIS DNA NEGATIVE (NEGATIVE)
[2020-10-23] MEDS ORDERED: LACTATED RINGERS 1,000 ML IV ONE (01:57)
[2020-10-23 07:31] LABS: BASOPHILS % (AUTO) 0.2 %; HGB - HEMOGLOBIN 10.3 g/dL (12.0-16.0); LYMPHOCYTES % (AUTO) 7.4 %; MEAN CORPUSCULAR HEMOGLOBIN 30.2 pg (27.0-31.0); MEAN CORPUSCULAR HGB CONC 32.9 g/dL (32.0-36.0); MEAN CORPUSCULAR VOLUME 91.8 fL (81.0-99.0); MEAN PLATELET VOLUME 10.9 fL (7.9-10.8); MONOCYTES # (AUTO) 0.4 10^3/uL (0.0-1.0); MONOCYTES % (AUTO) 2.9 %; NEUTROPHILS # (AUTO) 11.9 10^3/uL (1.5-6.6); PLT - PLATELET COUNT 166 10^3/uL (130-450); RED BLOOD COUNT 3.41 10^6/uL (4.20-5.40); RED CELL DISTRIBUTION WIDTH 13.1 % (12.0-15.0); WHITE BLOOD COUNT 13.6 x10^3/uL (4.8-10.8)
--- NOTE | 2020-10-23 08:46 | PROVIDER PROGRESS NOTE ---
Subjective - Prog Note Date Prog Note Date: 10/23/20 Prog Note Time: 08:38 - Subjective Pt reports feeling: No change Subjective: S: Malissa is resting in bed eating breakfast with jacob Mendez at bedside, supportive. She denies contractions this morning. Denies LOF or VB O: SVE: 1.5/70/-2, head not well applied FHTs: 125, moderate variability, 10x10 accels, no decels Utx: irregular and mild A: 20yo at 29.1wks gestation No cervical change, although head is higher in pelvis this morning Utx- irregular and mild Consult with and Mohan HORN completed Recommendations: Monitor patient as Inpatient Obs for 24 hours after second betamethasone injection Weekly cervical exams Plan: Vital signs Qshift monitoring Qshift Contraction monitoring Q4H I/O Objective - Vital Signs/Intake & Output Intake & Output: Intake & Output 10/20/20 10/21/20 10/22/20 10/23/20 23:59 23:59 23:59 23:59 Intake Total 1000 1000 Output Total 850 Balance 1000 150 - Lab Results Fish Bones: 10/23/20 07:23 Other Labs: Lab Results x24hrs 10/23/20 10/22/20 10/22/20 Range/Units 07:23 19:09 17:28 WBC 13.6 H (4.8-10.8) x10^3/uL RBC 3.41 L (4.20-5.40) 10^6/uL Hgb 10.3 L (12.0-16.0) g/dL Hct 31.3 L (37.0-47.0) % MCV 91.8 (81.0-99.0) fL MCH 30.2 (27.0-31.0) pg MCHC 32.9 (32.0-36.0) g/dL RDW 13.1 (12.0-15.0) % Plt Count 166 (130-450) 10^3/uL MPV 10.9 H (7.9-10.8) fL Neut # (Auto) 11.9 H (1.5-6.6) 10^3/uL Lymph # (Auto) 1.0 L (1.5-3.5) 10^3/uL Pershing # (Auto) 0.4 (0.0-1.0) 10^3/uL Eos # (Auto) 0.0 (0.0-0.7) 10^3/uL Baso # (Auto) 0.0 (0.0-0.1) 10^3/uL Absolute Nucleated RBC 0.00 x10^3/uL Nucleated RBC % 0.0 /100WBC Urine Color Urine Clarity (CLEAR) Urine pH (5.0-7.5) PH Ur Specific Bea[place]ont (1.002-1.030) Urine Protein (NEGATIVE) mg/dL Urine Glucose (UA) (NEGATIVE) mg/dL Urine Ketones (NEGATIVE) mg/dL Urine Occult Blood (NEGATIVE) Urine Nitrite (NEGATIVE) Urine Bilirubin (NEGATIVE) Urine Urobilinogen (NORMAL) E.U./dL Ur Leukocyte Esterase (NEGATIVE) Urine RBC (0-5) /HPF Urine WBC (0-5) /HPF Ur Squamous Epith Cells (<= Few) Urine Bacteria (None Seen) /HPF Urine Culture Comments Membranes Rupture NEGATIVE (NEGATIVE) C. glabrata (PCR) (NEGATIVE) C. krusei (PCR) (NEGATIVE) Jade species DNA (NEGATIVE) Chlam trachomat DNA PCR (NEGATIVE) N.gonorrhoeae DNA (PCR) (NEGATIVE) T. vaginalis (PCR) (NEGATIVE) Bact Vaginosis (PCR) (NEGATIVE) Fibronectin POSITIVE (NEGATIVE) 10/22/20 10/22/20 10/22/20 Range/Units 17:28 17:28 17:10 WBC (4.8-10.8) x10^3/uL RBC (4.20-5.40) 10^6/uL Hgb (12.0-16.0) g/dL Hct (37.0-47.0) % MCV (81.0-99.0) fL MCH (27.0-31.0) pg MCHC (32.0-36.0) g/dL RDW (12.0-15.0) % Plt Count (130-450) 10^3/uL MPV (7.9-10.8) fL Neut # (Auto) (1.5-6.6) 10^3/uL Lymph # (Auto) (1.5-3.5) 10^3/uL Pershing # (Auto) (0.0-1.0) 10^3/uL Eos # (Auto) (0.0-0.7) 10^3/uL Baso # (Auto) (0.0-0.1) 10^3/uL Absolute Nucleated RBC x10^3/uL Nucleated RBC % /100WBC Urine Color YELLOW Urine Clarity HAZY (CLEAR) Urine pH 6.0 (5.0-7.5) PH Ur Specific [place] 1.025 (1.002-1.030) Urine Protein NEGATIVE (NEGATIVE) mg/dL Urine Glucose (UA) NEGATIVE (NEGATIVE) mg/dL Urine Ketones NEGATIVE (NEGATIVE) mg/dL Urine Occult Blood NEGATIVE (NEGATIVE) Urine Nitrite NEGATIVE (NEGATIVE) Urine Bilirubin NEGATIVE (NEGATIVE) Urine Urobilinogen 0.2 (NORMAL) (NORMAL) E.U./dL Ur Leukocyte Esterase TRACE H (NEGATIVE) Urine RBC 0-5 (0-5) /HPF Urine WBC 0-3 (0-5) /HPF Ur Squamous Epith Cells MANY Squamous H (<= Few) Urine Bacteria Few (None Seen) /HPF Urine Culture Comments NOT INDICATED Membranes Rupture NEGATIVE (NEGATIVE) C. glabrata (PCR) NEGATIVE (NEGATIVE) C. krusei (PCR) NEGATIVE (NEGATIVE) Jade species DNA NEGATIVE (NEGATIVE) Chlam trachomat DNA PCR (NEGATIVE) N.gonorrhoeae DNA (PCR) (NEGATIVE) T. vaginalis (PCR) NEGATIVE (NEGATIVE) Bact Vaginosis (PCR) NEGATIVE (NEGATIVE) Fibronectin (NEGATIVE) 10/22/20 Range/Units 17:10 WBC (4.8-10.8) x10^3/uL RBC (4.20-5.40) 10^6/uL Hgb (12.0-16.0) g/dL Hct (37.0-47.0) % MCV (81.0-99.0) fL MCH (27.0-31.0) pg MCHC (32.0-36.0) g/dL RDW (12.0-15.0) % Plt Count (130-450) 10^3/uL MPV (7.9-10.8) fL Neut # (Auto) (1.5-6.6) 10^3/uL Lymph # (Auto) (1.5-3.5) 10^3/uL Pershing # (Auto) (0.0-1.0) 10^3/uL Eos # (Auto) (0.0-0.7) 10^3/uL Baso # (Auto) (0.0-0.1) 10^3/uL Absolute Nucleated RBC x10^3/uL Nucleated RBC % /100WBC Urine Color Urine Clarity (CLEAR) Urine pH (5.0-7.5) PH Ur Specific [place] (1.002-1.030) Urine Protein (NEGATIVE) mg/dL Urine Glucose (UA) (NEGATIVE) mg/dL Urine Ketones (NEGATIVE) mg/dL Urine Occult Blood (NEGATIVE) Urine Nitrite (NEGATIVE) Urine Bilirubin (NEGATIVE) Urine Urobilinogen (NORMAL) E.U./dL Ur Leukocyte Esterase (NEGATIVE) Urine RBC (0-5) /HPF Urine WBC (0-5) /HPF Ur Squamous Epith Cells (<= Few) Urine Bacteria (None Seen) /HPF Urine Culture Comments Membranes Rupture (NEGATIVE) C. glabrata (PCR) (NEGATIVE) C. krusei (PCR) (NEGATIVE) Jade species DNA (NEGATIVE) Chlam trachomat DNA PCR NEGATIVE (NEGATIVE) N.gonorrhoeae DNA (PCR) NEGATIVE (NEGATIVE) T. vaginalis (PCR) NEGATIVE (NEGATIVE) Bact Vaginosis (PCR) (NEGATIVE) Fibronectin (NEGATIVE)
--- NOTE | 2020-10-23 17:40 | Ultrasound Report ---
PROCEDURE: OB Limited INDICATIONS: VALORIE OUTSIDE/PRIOR DATING DATA: Last menstrual period (LMP): 04/02/2020. LMP-based estimated date of delivery (BRANDIE): 01/07/2021. First dating scan (date and location): 05/27/2020. Estimated date of delivery (BRANDIE) from first dating scan: 01/07/2021. TECHNIQUE: Real-time scanning was performed of the fetus, with image documentation. Endovaginal scanning: Performed. COMPARISON: 10/13/2020, 08/28/2020, 06/26/2020, 05/27/2020. FINDINGS: A single living intrauterine gestation is present. Presentation: Cephalic Placenta: Placental position is anterior, without previa. Amniotic fluid index: 15.4 cm, 57th percentile for gestational age. heart rate: 149 beats per minutes. Maternal cervical canal: Approximately 0.4 cm long; normal length is 2.5 cm or more. There is marked funneling along the internal cervical os. There is also a small amount of endocervical fluid. Estimated gestational age from initial scan: 29 weeks 0 days. IMPRESSION: 1. Single living imaging demonstrated in cephalic position. 2. Marked foreshortening of the cervix with a close segment measuring approximately 0.4 cm in length which also demonstrates a small amount of intermittent endocervical fluid. Marked cervical funneling is demonstrated along the internal os. The findings are highly suspicious for an incompetent cervix a nd correlation is recommended with clinical exam. 3. Amniotic fluid index within normal limits. Preliminary report given by the diagnostic technologist to nurse Sara Parikh on 10/22/2020 at 8:10 PM. Reviewed by: Vickey Nieto MD on 10/23/2020 5:38 PM PST Approved by: Vickey Nieto MD on 10/23/2020 5:38 PM PST Station ID: [id number]
[2020-10-23] MEDS ORDERED: BETAMETHASONE 30 MG/5 ML VIAL IM ONE (20:30)
[2020-10-24 04:40] VITALS: BP 117/54
[2020-10-24] MEDS ORDERED: LACTATED RINGERS 1,000 ML IV ONE (08:46)
[2020-10-24] MEDS ORDERED: NIFEdipine 10 MG CAPSULE PO ONE (09:06)
[2020-10-24] MEDS ORDERED: MAGNESIUM SULFATE 4 GRAM 4 GM/50 ML BAG IV ONE ×2 (09:10→09:18)
[2020-10-24 09:12] LABS: BASOPHILS % (AUTO) 0.3 %; HGB - HEMOGLOBIN 10.4 g/dL (12.0-16.0); LYMPHOCYTES # (AUTO) 1.1 10^3/uL (1.5-3.5); LYMPHOCYTES % (AUTO) 7.1 %; MEAN CORPUSCULAR HEMOGLOBIN 30.9 pg (27.0-31.0); MEAN CORPUSCULAR HGB CONC 33.2 g/dL (32.0-36.0); MEAN CORPUSCULAR VOLUME 92.9 fL (81.0-99.0); MONOCYTES # (AUTO) 0.5 10^3/uL (0.0-1.0); MONOCYTES % (AUTO) 3.6 %; NEUTROPHILS # (AUTO) 12.9 10^3/uL (1.5-6.6); NEUTROPHILS % (AUTO) 86.6 %; PLT - PLATELET COUNT 175 10^3/uL (130-450); RED BLOOD COUNT 3.37 10^6/uL (4.20-5.40); RED CELL DISTRIBUTION WIDTH 13.2 % (12.0-15.0); WHITE BLOOD COUNT 14.8 x10^3/uL (4.8-10.8)
--- NOTE | 2020-10-24 09:16 | PROVIDER PROGRESS NOTE ---
Subjective - Subjective Subjective: Cervical change 2/80%/-2Ewa Leonardo reports low back and pelvic discomfort overnight Transfer indicated for higher level care Objective - Vital Signs/Intake & Output Vital Signs: Vital Signs x48h Temp Pulse Resp BP Pulse Ox 10/24/20 03:30 36.9 C 74 20 117/54 L 100 Intake & Output: Intake & Output 10/21/20 10/22/20 10/23/20 10/24/20 23:59 23:59 23:59 23:59 Intake Total 1000 3030 Output Total 850 Balance 1000 2180 - Lab Results Fish Bones: 10/24/20 09:09 Other Labs: Lab Results x24hrs 10/24/20 Range/Units 09:09 WBC 14.8 H (4.8-10.8) x10^3/uL RBC 3.37 L (4.20-5.40) 10^6/uL Hgb 10.4 L (12.0-16.0) g/dL Hct 31.3 L (37.0-47.0) % MCV 92.9 (81.0-99.0) fL MCH 30.9 (27.0-31.0) pg MCHC 33.2 (32.0-36.0) g/dL RDW 13.2 (12.0-15.0) % Plt Count 175 (130-450) 10^3/uL MPV 11.0 H (7.9-10.8) fL Neut # (Auto) 12.9 H (1.5-6.6) 10^3/uL Lymph # (Auto) 1.1 L (1.5-3.5) 10^3/uL Edgar # (Auto) 0.5 (0.0-1.0) 10^3/uL Eos # (Auto) 0.0 (0.0-0.7) 10^3/uL Baso # (Auto) 0.0 (0.0-0.1) 10^3/uL Absolute Nucleated RBC 0.00 x10^3/uL Nucleated RBC % 0.0 /100WBC
[2020-10-24] MEDS ORDERED: MAGNESIUM SULFATE IN WATER 20 GM/500 ML IV.SOLN IV ONE (09:18)
[2020-10-24 09:28] LABS: ALBUMIN 3.4 g/dL (3.2-5.5); ALBUMIN/GLOBULIN RATIO 1.1 (1.0-2.2); BILIRUBIN,TOTAL 0.7 mg/dL (0.2-1.0); CREATININE 0.5 mg/dL (0.4-1.0); TOTAL PROTEIN 6.6 g/dL (6.7-8.2); URIC ACID 2.9 mg/dL (2.6-7.2)
[2020-10-24] MEDS ORDERED: AMPICILLIN 2 GM in SODIUM CHLORIDE 0.9% MINIBAG 100 ML IV SCH ×2 (09:45→12:00)
[2020-10-24] MEDS ORDERED: MAGNESIUM SULFATE IN WATER 20 GM/500 ML IV.SOLN IV SCH (10:00)
[2020-10-24 10:18] LABS: BILIRUBIN,URINE NEGATIVE (NEGATIVE); GLUCOSE, URINE (UA) 250 mg/dL (NEGATIVE); KETONES,URINE (UA) NEGATIVE (NEGATIVE); LEUKOCYTE ESTERASE, URINE NEGATIVE (NEGATIVE); NITRITE,URINE NEGATIVE (NEGATIVE); OCCULT BLOOD,URINE NEGATIVE (NEGATIVE); PH,URINE 6.5 PH (5.0-7.5); PROTEIN,URINE NEGATIVE (NEGATIVE); UROBILINOGEN,URINE 0.2 (NORMAL) E.U./dL (NORMAL)
[2020-10-24 10:27] LABS: CREATININE,URINE 33.7 mg/dL
[2020-10-24 10:28] LABS: TOTAL PROTEIN,URINE TIMED < 6 mg/dL
[2020-10-24 10:33] LABS: BACTERIA,URINE Rare /HPF (None Seen); CLARITY,URINE CLEAR (CLEAR); RBC,URINE None Seen /HPF (0-5); SQUAMOUS EPITHELIAL CELL,UR MOD Squamous (<= Few)
--- NOTE | 2020-10-31 11:49 | PROVIDER PROGRESS NOTE ---
Subjective - Subjective Subjective: Final diagnosis = labor Plan = transport to NICU facility Objective - Lab Results Fish Bones: 10/24/20 09:09 10/24/20 09:09
== END 2020-10-24 10:30 | disposition short-term general hospital (02) ==
LOC: WFO 17:01 → FBP 17:06 → WFO 21:32 → FBP 21:33
PROVIDERS: ADMIT Advanced Practice Midwife; ATTEND Obstetrics & Gynecology
DX: O60.03 Preterm labor without delivery, third trimester (principal); Z3A.29 29 weeks gestation of pregnancy
CPT/HCPCS: 59025; 76815; 76817; 80053; 81001; 82570; 82731; 84112; 84156; 84550; 85025; 87210; 87481; 87491; 87591; 87635; 87661; 87797; 87801; 96361; 96365; 96368; 96372; 99213; A9270; G0378; J7120; 87081; 87086; J3475

== ENCOUNTER 2020-10-27 14:15 | Outpatient (CLI) | payer MEDICAID ==
[2020-10-27 14:31] VITALS: BP 130/87
[2020-10-27 14:39] LABS: BILIRUBIN,URINE NEGATIVE (NEGATIVE); GLUCOSE, URINE (UA) NEGATIVE (NEGATIVE); KETONES,URINE (UA) NEGATIVE (NEGATIVE); LEUKOCYTE ESTERASE, URINE NEGATIVE (NEGATIVE); NITRITE,URINE NEGATIVE (NEGATIVE); OCCULT BLOOD,URINE NEGATIVE (NEGATIVE); PH,URINE 5.5 PH (5.0-7.5); PROTEIN,URINE NEGATIVE (NEGATIVE); UROBILINOGEN,URINE 0.2 (NORMAL) E.U./dL (NORMAL)
[2020-10-27 14:42] LABS: CLARITY,URINE CLEAR (CLEAR)
--- NOTE | 2020-10-27 15:33 | PROCEDURE REPORT ---
- HPI Diagnosis/Indication for NST: Other (leaking of fluid) Current EDU 01/07/21 Gestation 29 Weeks and 5 Days 1 Para 0 Vital Signs Temperature 99.1 F 10/27/20 14:28 Heart Rate 95 10/27/20 14:28 Respiratory Rate 20 10/27/20 14:28 Blood Pressure 130/87 H 10/27/20 14:28 O2 Saturation 100 10/27/20 14:28 Temperature 99.1 F 10/27/20 14:28 Heart Rate 95 10/27/20 14:28 Respiratory Rate 20 10/27/20 14:28 Blood Pressure 130/87 H 10/27/20 14:28 O2 Saturation 100 10/27/20 14:28 - NST Procedure NST Procedure Start Time 08:27 Stop Time 09:00 - Results and Plan Findings/Impression: Baseline: BPM 150 Variability: Moderate Accelerations: Present Decelerations: Absent Trends in FHR over time: no changes [place] contractions in 10 minutes: 0 Impression: reactive Category 1 NST Final dx: leukorrhea of . Pt c/o wetness on her thighs when waking, not sure if vag or urine or sweat, doesn't tend to be a sweaty sleeper. Feels some discharge/fluid coming out while sitting. No itching or odor. This is new. Feeling some tearing pains in the upper vagina. No bleeding. + movement. O: normal external genitalia. Vag pink, well-ruggated, physiologic discharge seen. No pooling, valsalva, nitrizine, or fern. Rom plus test is negative. Wet mount negative. SVE 2/25/-3/soft to medium/posterior to mid A/P: Leukorrhea of , no ROM, no evidence of labor. F/u with [facility] this week. F/u with Eva HERNANDEZ MD next week.
[2020-10-27 15:39] LABS: RUPTURE OF MEMBRANES PLUS NEGATIVE (NEGATIVE)
--- OUTSIDE RECORDS SUMMARY | 2020-10-31 01:52 | EXTERNAL MEDICAL SUMMARY RPT | Continuity of Care Document ---
:2000 Demographics Phone Unavailable Preferred Language Sri Lankan Marital Status Unknown Catholic Affiliation Unknown Race Unknown Ethnic Group Unknown Author Organization [place] Address [address] [id number] Phone Care Team Providers Name Role Phone [place] Unavailable Unavailable MA-C Unavailable Unavailable Ju Unavailable Unavailable (R) Unavailable Unavailable Registrar Unavailable Unavailable SENIOR RELIABILITY ENGINEER Unavailable Unavailable Christopher Unavailable Unavailable MD Unavailable Unavailable Referrals Unavailable Unavailable SENIOR RELIABILITY ENGINEER Unavailable Unavailable Problems date description facility 2019-06-15 18:57 NICOTINE DEPENDENCE, [facility] UNSPECIFIED, UNCOMPLICATED 2019-06-15 18:57 MIGRAINE WITH AURA, 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 , UNSP, UNSP TRIMESTER 2020-06-11 13:14 ENCOUNTER FOR OTHER SPECIFIED [facility] SCREENING 2020-06-25 23:23 THREATENED [facility] 2020-06-25 23:23 HEMORRHAGE IN EARLY , [facility] UNSPECIFIED 2020-06-25 23:23 12 WEEKS GESTATION OF [facility] 2020-06-25 23:23 PERSONAL HISTORY OF NICOTINE [facility] DEPENDENCE 2020-07-03 10:00 ENCNTR FOR SUPRVSN OF [facility] , UNSP, UNSP TRIMESTER 2020-07-03 10:00 ENCOUNTER FOR OTHER SPECIFIED [facility] SCREENING 2020-08-15 00:00:00 Exercise [facility] CPV RHC 2020-08-15 00:00:00 Total score? [facility] 2020-08-15 00:00:00 Details of drug misuse behavior [facility] 2020-08-15 00:00:00 [facility] 2020-08-28 09:43 ENCNTR FOR SUPRVSN OF NORMAL [facility] PREG, UNSP, SECOND TRIMESTER 2020-08-28 09:43 ENCOUNTER FOR OTHER SPECIFIED [facility] SCREENING 2020-09-17 00:00:00 [facility] 2020-09-17 00:00:00 CBC w/o DIFF [facility] 2020-09-17 00:00:00 [facility] 2020-09-17 00:00:00 Total score? [facility] 2020-09-17 00:00:00 1HR GTT [facility] 2020-09-17 00:00:00 Details of drug misuse behavior [facility] 2020-10-01 00:00:00 Dyspnea on exertion [facility] R[facility] 2020-10-01 00:00:00 Other dyspnea and respiratory [facility] CPV abnormality RHC 2020-10-01 00:00:00 Other forms of dyspnea [facility] CPV RHC 2020-10-01 07:39 OTH DISEASES AND CONDITIONS [facility] COMPLICATING 2020-10-01 07:39 SHORTNESS OF BREATH [facility] 2020-10-01 07:39 RIGHT UPPER QUADRANT PAIN [facility] 2020-10-01 07:39 HEADACHE, UNSPECIFIED [facility] 2020-10-01 07:39 CONTACT W AND EXPOSURE TO OTH [facility] VIRAL COMMUNICABLE DISEASES 2020-10-01 07:39 26 WEEKS GESTATION OF [facility] 2020-10-09 14:55 ENCNTR FOR SUPRVSN OF NORMAL [facility] , UNSP, UNSP TRIMESTER 2020-10-09 14:55 ENCOUNTER FOR OTHER SPECIFIED [facility] SCREENING 2020-10-10 00:00:00 Anemia complicating , [facility] CPV childbirth, or the puerperium, RHC antepartum condition or complication 2020-10-10 00:00:00 Anemia complicating , [facility] unspecified trimester RHC 2020-10-10 00:00:00 [facility] 2020-10-10 00:00:00 Uterine size-date discrepancy, [facility] CPV unspecified trimester RHC 2020-10-10 00:00:00 Details of drug misuse behavior [facility] CPV RHC 2020-10-10 00:00:00 Current every day smoker [facility] CPV RHC 2020-10-10 00:00:00 US [facility] 2020-10-10 00:00:00 Exercise [facility] RHC 2020-10-10 00:00:00 Uterine size for [facility] CPV discrepancy RHC 2020-10-10 00:00:00 Anemia in mother complicating [facility] C[facility] , childbirth AND/OR RHC puerperium 2020-10-10 00:00:00 Uterine size date discrepancy, [facility] CPV antepartum condition or RHC complication 2020-10-13 08:36 UTERINE SIZE-DATE DISCREPANCY, [facility] SECOND TRIMESTER 2020-10-13 08:36 26 WEEKS GESTATION OF [facility] 2020-10-15 00:00:00 growth retardation, [facility] CPV unspecified [weight] RHC 2020-10-15 00:00:00 [place] light for gestational [facility] CPV age, unspecified weight RHC 2020-10-15 00:00:00 growth restriction [facility] CPV RHC 2020-10-18 00:00:00 US BIOPHYSICAL PROFILE [facility] CPV RHC 2020-10-29 00:00:00 Exercise [facility] RHC 2020-10-29 00:00:00 Details of drug misuse behavior [facility] CPV RHC 2020-10-29 00:00:00 Current every day smoker [facility] CPV RHC 2020-10-29 00:00:00 Total score? [facility] RHC Allergies date description facility ADHESIVE \T\ [facility] BEE VENOM [facility] CORTISONE [facility] IBUPROFEN [facility] METRONIDAZOLE [facility] PREDNISONE [facility] METFORMIN HCL [facility] MORPHINE AND RELATED [facility] NO KNOWN ENVIRONMENTAL ALLERGIES [facility] PENICILLINS [facility] NO ALLERGY INFORMATION AVAILABLE [facility] NO KNOWN ALLERGIES [facility] EGG YOLK [facility] LACTOSE [facility] LATEX [facility] cetirizine HCl * [facility] NO KNOWN ENVIRONMENTAL ALLERGIES [facility] NO KNOWN ALLERGIES [facility] NO KNOWN ALLERGIES [facility] cetirizine HCl * [facility] Medications date description facility 2020-10-10 00:00:00 null [facility] 2020-10-10 00:00:00 null [facility] 2020-10-10 00:00:00 FERROUS SULFATE [facility] 2020-10-10 00:00:00 null [facility] 2020-10-10 00:00:00 null [facility] 2020-10-10 00:00:00 FERROUS SULFATE [facility] 2020-10-10 00:00:00 null [facility] 2020-10-10 00:00:00 null [facility] 2020-10-10 00:00:00 FERROUS SULFATE [facility] 2020-10-10 00:00:00 null [facility] 2020-10-10 00:00:00 null [facility] 2020-10-10 00:00:00 FERROUS SULFATE [facility] 2020-10-10 00:00:00 null [facility] 2020-10-10 00:00:00 null [facility] 2020-10-10 00:00:00 FERROUS SULFATE [facility] 2020-10-10 00:00:00 null [facility] 2020-10-10 00:00:00 null [facility] 2020-10-10 00:00:00 FERROUS SULFATE [facility] 2020-10-10 00:00:00 null [facility] 2020-10-10 00:00:00 null [facility] 2020-10-10 00:00:00 FERROUS SULFATE [facility] 2020-10-10 00:00:00 null [facility] R[facility] 2020-10-10 00:00:00 null [facility] 2020-10-10 00:00:00 FERROUS SULFATE [facility] 2020-10-10 00:00:00 null [facility] 2020-10-10 00:00:00 null [facility] 2020-10-10 00:00:00 FERROUS SULFATE [facility] 2020-10-10 00:00:00 FERROUS SULFATE [facility] 2020-10-10 00:00:00 null [facility] 2020-10-10 00:00:00 null [facility] 2020-10-10 00:00:00 FERROUS SULFATE [facility] 2020-10-10 00:00:00 null [facility] 2020-10-10 00:00:00 null [facility] 2020-10-10 00:00:00 FERROUS SULFATE [facility] 2020-10-29 00:00:00 null [facility] 2020-10-29 00:00:00 null [facility] 2020-10-29 00:00:00 MISC. DEVICES [facility] Procedures date description facility 2020-08-15 00:00:00 [id number] - SUBSEQUENT [facility] VISIT [facility] date description facility 2020-08-15 00:00:00 [facility] date description facility 2020-08-15 00:00:00 [id number] - SUBSEQUENT [facility] VISIT [facility] date description facility 2020-08-15 00:00:00 [facility] date description facility 2020-08-15 00:00:00 [id number] - SUBSEQUENT [facility] VISIT RHC date description facility 2020-08-15 00:00:00 [facility] date description facility 2020-08-15 00:00:00 [id number] - SUBSEQUENT [facility] VISIT RHC date description facility 2020-08-15 00:00:00 [facility] date description facility 2020-08-15 00:00:00 [id number] - SUBSEQUENT [facility] VISIT RHC date description facility 2020-08-15 00:00:00 [facility] date description facility 2020-08-15 00:00:00 [id number] - SUBSEQUENT [facility] VISIT RHC date description facility 2020-08-15 00:00:00 [facility] date description facility 2020-08-15 00:00:00 [id number] - SUBSEQUENT [facility] VISIT RHC date description facility 2020-08-15 00:00:00 [facility] date description facility 2020-08-15 00:00:00 [id number] - SUBSEQUENT [facility] VISIT RHC date description facility 2020-08-15 00:00:00 [facility] date description facility 2020-09-17 00:00:00 [id number] - SUBSEQUENT [facility] VISIT RHC date description facility 2020-09-17 00:00:00 [facility] date description facility 2020-09-17 00:00:00 [id number] - SUBSEQUENT [facility] VISIT RHC date description facility 2020-09-17 00:00:00 [facility] date description facility 2020-09-17 00:00:00 [id number] - SUBSEQUENT [facility] VISIT RHC date description facility 2020-09-17 00:00:00 [facility] date description facility 2020-09-17 00:00:00 [id number] - SUBSEQUENT [facility] VISIT RHC date description facility 2020-09-17 00:00:00 [facility] RHC date description facility 2020-09-17 00:00:00 [id number] - SUBSEQUENT [facility] VISIT RHC date description facility 2020-09-17 00:00:00 [facility] R[facility] date description facility 2020-09-17 00:00:00 [id number] - SUBSEQUENT [facility] VISIT RHC date description facility 2020-09-17 00:00:00 [facility] RHC date description facility 2020-09-17 00:00:00 [id number] - SUBSEQUENT [facility] VISIT RHC date description facility 2020-09-17 00:00:00 [facility] RHC date description facility 2020-09-17 00:00:00 [id number] - SUBSEQUENT [facility] VISIT RHC date description facility 2020-09-17 00:00:00 [facility] date description facility 2020-10-01 00:00:00 NST [facility] R[facility] date description facility 2020-10-01 00:00:00 [facility] date description facility 2020-10-01 00:00:00 NST [facility] date description facility 2020-10-01 00:00:00 [facility] date description facility 2020-10-01 00:00:00 NST [facility] date description facility 2020-10-01 00:00:00 [facility] date description facility 2020-10-01 00:00:00 NST [facility] date description facility 2020-10-01 00:00:00 [facility] date description facility 2020-10-01 00:00:00 NST [facility] date description facility 2020-10-01 00:00:00 [facility] date description facility 2020-10-01 00:00:00 NST [facility] date description facility 2020-10-01 00:00:00 [facility] date description facility 2020-10-01 00:00:00 NST [facility] date description facility 2020-10-01 00:00:00 [facility] date description facility 2020-10-01 00:00:00 NST [facility] date description facility 2020-10-01 00:00:00 [facility] date description facility 2020-10-10 00:00:00 [id number] - SUBSEQUENT [facility] VISIT RHC date description facility 2020-10-10 00:00:00 US OB FOLLOW-UP [facility] date description facility 2020-10-10 00:00:00 First Ix admin via ID IM or [facility] CPV jet injects with counseling by RHC physician for adult date description facility 2020-10-10 00:00:00 [facility] date description facility 2020-10-10 00:00:00 [id number] - SUBSEQUENT [facility] VISIT RHC date description facility 2020-10-10 00:00:00 First Ix admin via ID IM or [facility] jet injects with counseling by RHC physician for adult date description facility 2020-10-10 00:00:00 [facility] date description facility 2020-10-10 00:00:00 [id number] - SUBSEQUENT [facility] VISIT RHC date description facility 2020-10-10 00:00:00 US OB FOLLOW-UP [facility] date description facility 2020-10-10 00:00:00 First Ix admin via ID IM or [facility] jet injects with counseling by RHC physician for adult date description facility 2020-10-10 00:00:00 [facility] date description facility 2020-10-10 00:00:00 [id number] - SUBSEQUENT [facility] VISIT RHC date description facility 2020-10-10 00:00:00 First Ix admin via ID IM or [facility] jet injects with counseling by RHC physician for adult date description facility 2020-10-10 00:00:00 [facility] date description facility 2020-10-10 00:00:00 [id number] - SUBSEQUENT [facility] VISIT RHC date description facility 2020-10-10 00:00:00 First Ix admin via ID IM or [facility] jet injects with counseling by RHC physician for adult date description facility 2020-10-10 00:00:00 [facility] date description facility 2020-10-29 00:00:00 [id number] - SUBSEQUENT [facility] VISIT RHC date description facility 2020-10-29 00:00:00 [facility] Results Social History date description facility 2020-08-15 00:00:00 Current every day smoker [facility] date description facility 2020-09-17 00:00:00 Current every day smoker [facility] date description facility 2020-10-10 00:00:00 Current every day smoker [facility] date description facility 2020-10-29 00:00:00 Current every day smoker [facility] Social History date description facility 2020-08-15 00:00:00 Current every day smoker [facility] date description facility 2020-09-17 00:00:00 Current every day smoker [facility] date description facility 2020-10-10 00:00:00 Current every day smoker [facility] date description facility 2020-10-29 00:00:00 Current every day smoker [facility] date description facility [phone]
== END 2020-10-27 16:00 | disposition home or self-care (01) ==
LOC: WFO 14:15 → FBP 14:36 → WFO 16:00
PROVIDERS: ATTEND Obstetrics & Gynecology
DX: O99.891 Other specified diseases and conditions complicating pregnancy (principal); N89.8 Other specified noninflammatory disorders of vagina; Z3A.29 29 weeks gestation of pregnancy
CPT/HCPCS: 81001; 81003; 84112; 87086; 87210; 99213

== ENCOUNTER 2020-11-08 08:16 | Outpatient (CLI) | payer MEDICAID ==
[2020-11-08 08:34] VITALS: BP 130/80
[2020-11-08 09:24] LABS: BILIRUBIN,URINE NEGATIVE (NEGATIVE); GLUCOSE, URINE (UA) NEGATIVE (NEGATIVE); KETONES,URINE (UA) NEGATIVE (NEGATIVE); LEUKOCYTE ESTERASE, URINE NEGATIVE (NEGATIVE); NITRITE,URINE NEGATIVE (NEGATIVE); OCCULT BLOOD,URINE NEGATIVE (NEGATIVE); PROTEIN,URINE NEGATIVE (NEGATIVE); UROBILINOGEN,URINE 0.2 (NORMAL) E.U./dL (NORMAL)
[2020-11-08 09:25] LABS: CLARITY,URINE CLEAR (CLEAR)
[2020-11-08 09:27] LABS: BACTERIA,URINE Rare /HPF (None Seen); RBC,URINE None Seen /HPF (0-5); SQUAMOUS EPITHELIAL CELL,UR MOD Squamous (<= Few)
[2020-11-08 09:28] LABS: MUCUS,URINE Few Strands
--- NOTE | 2020-11-16 08:52 | PROCEDURE REPORT ---
- HPI Current EDU 01/07/21 Gestation 31 Weeks and 3 Days 1 Para 0 Vital Signs Temperature 37.2 C 11/08/20 08:32 Heart Rate 92 11/08/20 08:32 Respiratory Rate 16 11/08/20 08:32 Blood Pressure 130/80 11/08/20 08:32 O2 Saturation 98 11/08/20 08:32 Temperature 37.2 C 11/08/20 08:32 Heart Rate 92 11/08/20 08:32 Respiratory Rate 16 11/08/20 08:32 Blood Pressure 130/80 11/08/20 08:32 O2 Saturation 98 11/08/20 08:32 - NST Procedure NST Procedure Start Time 08:27 Stop Time 09:00 - Results and Plan Findings/Impression: DOS 11/12/20 REACTIVE NST Plan: CONTINUE ANTINATAL TESTING
== END 2020-11-08 12:15 | disposition home or self-care (01) ==
LOC: WFO 08:16 → FBP 08:17 → WFO 12:15
PROVIDERS: ATTEND Obstetrics & Gynecology
DX: O60.03 Preterm labor without delivery, third trimester (principal); Z3A.31 31 weeks gestation of pregnancy
CPT/HCPCS: 81001; 82731; 87086; 99214

== ENCOUNTER 2020-11-12 09:45 | Outpatient (CLI) | payer MEDICAID ==
[2020-11-12 10:05] VITALS: BP 132/80
--- NOTE | 2020-11-16 08:45 | PROCEDURE REPORT ---
- HPI Diagnosis/Indication for NST: Intrauterine growth restriction (DOS) Current EDU 01/07/21 Gestation 32 Weeks and 0 Days 1 Para 0 Vital Signs Heart Rate 103 H 11/12/20 10:04 Respiratory Rate 16 11/12/20 10:04 Blood Pressure 132/80 H 11/12/20 10:04 O2 Saturation 100 11/12/20 10:04 Temperature Heart Rate 103 H 11/12/20 10:04 Respiratory Rate 16 11/12/20 10:04 Blood Pressure 132/80 H 11/12/20 10:04 O2 Saturation 100 11/12/20 10:04 - NST Procedure NST Procedure Start Date 11/12/20 Start Time 10:00 Stop Time 10:35 Vibroacoustic Stimulation Used No Patient States Movement Yes - Results and Plan Findings/Impression: DOS 11/12/2020 Plan: CONTINUE ANTINATAL TESTING
== END 2020-11-12 10:51 | disposition home or self-care (01) ==
LOC: WFO 09:45 → FBP 09:50 → WFO 10:51
PROVIDERS: ATTEND Obstetrics & Gynecology
DX: O36.5930 Maternal care for other known or suspected poor fetal growth, third trimester, not applicable or unspecified (principal); Z3A.32 32 weeks gestation of pregnancy
CPT/HCPCS: 59025

== ENCOUNTER 2020-11-19 11:12 | Outpatient (CLI) | payer MEDICAID ==
[2020-11-19 11:31] VITALS: BP 134/77
--- NOTE | 2020-11-25 22:21 | PROCEDURE REPORT ---
- HPI Current EDU 01/07/21 Gestation 33 Weeks and 0 Days 1 Para 0 Vital Signs Temperature 98.4 F 11/19/20 11:23 Heart Rate 102 H 11/19/20 11:23 Respiratory Rate 16 11/19/20 11:23 Blood Pressure 134/77 H 11/19/20 11:23 O2 Saturation 100 11/19/20 11:23 Temperature 98.4 F 11/19/20 11:23 Heart Rate 102 H 11/19/20 11:23 Respiratory Rate 16 11/19/20 11:23 Blood Pressure 134/77 H 11/19/20 11:23 O2 Saturation 100 11/19/20 11:23 - NST Procedure NST Procedure Start Date 11/19/20 Start Time 11:21 Stop Time 12:00 Vibroacoustic Stimulation Used Yes Patient States Movement Yes: IUGR and labor EFM 145 mod boaz 15x15 accels (in the first 2 min) no decels TOCO: quiet - Results and Plan Findings/Impression: 20 yo at 33+0 wga with IUGR and prior PTL here for NST Cat I tracing Cont with twice weekly NST and weekly VALORIE Growth US Q4 weeks DX: IUGR/ growth restriction IUP at 33+0 wga
== END 2020-11-19 12:05 | disposition home or self-care (01) ==
LOC: WFO 11:12 → FBP 11:16 → WFO 12:05
PROVIDERS: ATTEND Obstetrics & Gynecology
DX: O36.5930 Maternal care for other known or suspected poor fetal growth, third trimester, not applicable or unspecified (principal); Z3A.33 33 weeks gestation of pregnancy
CPT/HCPCS: 59025

== ENCOUNTER 2020-11-25 21:30 | Outpatient (CLI) | payer MEDICAID ==
[2020-11-25 21:52] VITALS: BP 126/77
[2020-11-25 22:35] LABS: BILIRUBIN,URINE NEGATIVE (NEGATIVE); CLARITY,URINE HAZY (CLEAR); GLUCOSE, URINE (UA) NEGATIVE (NEGATIVE); KETONES,URINE (UA) NEGATIVE (NEGATIVE); LEUKOCYTE ESTERASE, URINE TRACE (NEGATIVE); NITRITE,URINE NEGATIVE (NEGATIVE); OCCULT BLOOD,URINE NEGATIVE (NEGATIVE); PROTEIN,URINE NEGATIVE (NEGATIVE); UROBILINOGEN,URINE 0.2 (NORMAL) E.U./dL (NORMAL)
[2020-11-25 22:55] LABS: BACTERIA,URINE Rare /HPF (None Seen); RBC,URINE 0-5 /HPF (0-5); SQUAMOUS EPITHELIAL CELL,UR MANY Squamous (<= Few)
--- NOTE | 2020-11-26 10:40 | PROCEDURE REPORT ---
- HPI Current EDU 01/07/21 Gestation 33 Weeks and 6 Days 1 Para 0 Vital Signs Temperature 98.8 F 11/25/20 21:41 Heart Rate 76 11/25/20 21:41 Respiratory Rate 18 11/25/20 21:41 Blood Pressure 126/77 11/25/20 21:41 O2 Saturation 99 11/25/20 21:41 Temperature 98.8 F 11/25/20 21:41 Heart Rate 76 11/25/20 21:41 Respiratory Rate 18 11/25/20 21:41 Blood Pressure 126/77 11/25/20 21:41 O2 Saturation 99 11/25/20 21:41 - NST Procedure NST Procedure Start Date 11/25/20 Start Time 21:45 Stop Time 22:40 Vibroacoustic Stimulation Used No Patient States Movement Yes - Results and Plan Findings/Impression: Baseline: BPM 130 Variability: Moderate Accelerations: Present Decelerations: Absent Trends in FHR over time: no changes Early contractions in 10 minutes: 0 Impression: reactive Category 1 NST Pt presented for sensation of vaginal pressure. No contractions, bleeding, or leaking. Early neg and SVE unchanged with RN exam. Discharged from triage with routine labor precautions, has FUV tomorrow in clinic. Not seen by MD in [facility].
== END 2020-11-25 23:00 | disposition home or self-care (01) ==
LOC: WFO 21:30 → FBP 21:31 → WFO 23:00
PROVIDERS: ATTEND Obstetrics & Gynecology
DX: O99.891 Other specified diseases and conditions complicating pregnancy (principal); R10.2 Pelvic and perineal pain; Z3A.33 33 weeks gestation of pregnancy; Z20.822 Contact with and (suspected) exposure to COVID-19
CPT/HCPCS: 59025; 81001; 87077; 87081; 87086; 87181; 87210; 99212

== ENCOUNTER 2020-12-03 10:46 | Outpatient (CLI) | payer MEDICAID ==
[2020-12-03 10:59] VITALS: BP 129/78
--- NOTE | 2020-12-04 08:14 | PROCEDURE REPORT ---
- HPI Diagnosis/Indication for NST: Intrauterine growth restriction Current EDU 01/07/21 Gestation 35 Weeks and 0 Days 1 Para 0 Vital Signs Temperature 99.3 F 12/03/20 10:58 Heart Rate 124 H 12/03/20 10:58 Respiratory Rate 12/03/20 10:58 Blood Pressure 129/78 12/03/20 10:58 O2 Saturation 98 12/03/20 10:58 Temperature 99.3 F 12/03/20 10:58 Heart Rate 124 H 12/03/20 10:58 Respiratory Rate 12/03/20 10:58 Blood Pressure 129/78 12/03/20 10:58 O2 Saturation 98 12/03/20 10:58 - NST Procedure NST Procedure Start Date 12/03/20 Start Time 11:01 Stop Time 11:54 Vibroacoustic Stimulation Used Yes Patient States Movement Yes - Results and Plan Findings/Impression: Baseline: BPM 140 Variability: Moderate Accelerations: Present Decelerations: Absent Trends in FHR over time: no changes [place] contractions in 10 minutes: 0 Impression: reactive Category 1 NST
== END 2020-12-03 12:01 | disposition home or self-care (01) ==
LOC: WFO 10:46 → FBP 10:50 → WFO 12:01
PROVIDERS: ATTEND Obstetrics & Gynecology
DX: O36.5930 Maternal care for other known or suspected poor fetal growth, third trimester, not applicable or unspecified (principal); Z3A.35 35 weeks gestation of pregnancy
CPT/HCPCS: 59025

== ENCOUNTER 2020-12-04 08:00 | Outpatient (CLI) | payer MEDICAID | END 2020-12-04 08:01 | disposition home or self-care (01) | LOC: LAB.R 08:00 | PROVIDERS: ATTEND Obstetrics & Gynecology | DX: O09.93 Supervision of high risk pregnancy, unspecified, third trimester (principal); O99.891 Other specified diseases and conditions complicating pregnancy; R10.2 Pelvic and perineal pain | CPT/HCPCS: 82731 ==

== ENCOUNTER 2020-12-10 09:46 | Outpatient (CLI) | payer MEDICAID ==
[2020-12-10 10:37] VITALS: BP 125/73
--- NOTE | 2020-12-10 18:58 | PROCEDURE REPORT ---
- HPI Diagnosis/Indication for NST: Intrauterine growth restriction Current EDU 01/07/21 Gestation 36 Weeks and 0 Days 1 Para 0 Vital Signs Temperature 97.9 F 12/10/20 10:34 Heart Rate 82 12/10/20 10:34 Respiratory Rate 16 12/10/20 10:34 Blood Pressure 125/73 12/10/20 10:34 O2 Saturation 100 12/10/20 10:34 Temperature 97.9 F 12/10/20 10:34 Heart Rate 82 12/10/20 10:34 Respiratory Rate 16 12/10/20 10:34 Blood Pressure 125/73 12/10/20 10:34 O2 Saturation 100 12/10/20 10:34 - NST Procedure NST Procedure Start Date 12/10/20 Start Time 10:33 Stop Time 10:53 Vibroacoustic Stimulation Used No Patient States Movement Yes EFM 140 mod boaz 15x15 accels no decels TOCO: irreg - Results and Plan Findings/Impression: 20 yo at 36+0 wga with affected by growth restriction here for NST Cat I tracing Cont with twice weekly NST and weekly VALORIE DX: Growth restriction IUP at 36+0 wga
== END 2020-12-10 11:00 | disposition home or self-care (01) ==
LOC: WFO 09:46 → FBP 10:09 → WFO 11:00
PROVIDERS: ATTEND Obstetrics & Gynecology
DX: O36.5930 Maternal care for other known or suspected poor fetal growth, third trimester, not applicable or unspecified (principal); Z3A.36 36 weeks gestation of pregnancy
CPT/HCPCS: 59025

== ENCOUNTER 2020-12-12 06:24 | Inpatient (IN) | payer MEDICAID ==
[2020-12-12 06:34] VITALS: BP 131/83
[2020-12-12] MEDS ORDERED: AMPICILLIN 2 GM in SODIUM CHLORIDE 0.9% MINIBAG 100 ML IV ONE (08:26)
[2020-12-12] MEDS ORDERED: LIDOCAINE-MPF 1% 30 ML VIAL ID PRN (08:26)
[2020-12-12] MEDS ORDERED: TRANEXAMIC ACID IN NACL 1,000 MG/100 ML BAG IV PRN (08:26)
[2020-12-12] MEDS ORDERED: miSOPROStoL 200 MCG TABLET BC PRN (08:26)
[2020-12-12] MEDS ORDERED: SODIUM CHLORIDE FLUSH 0.9% 10 ML SYRINGE IVP PRN (08:26)
[2020-12-12] MEDS ORDERED: CARBOPROST TROMETHAMINE 250 MCG/ML AMP IM PRN (08:26)
[2020-12-12] MEDS ORDERED: OXYTOCIN/SODIUM CHLORIDE 500 ML IV PRN (08:26)
[2020-12-12] MEDS ORDERED: OXYTOCIN 10 UNIT/ML VIAL IM PRN (08:26)
[2020-12-12 08:39] LABS: C. PNEUMONIAE- RESP PCR PANEL NOT DETECTED
[2020-12-12] MEDS ORDERED: LACTATED RINGERS 1,000 ML IV SCH (09:00)
[2020-12-12 09:11] LABS: BASOPHILS # (AUTO) 0.1 10^3/uL (0.0-0.1); BASOPHILS % (AUTO) 0.5 %; EOSINOPHILS # (AUTO) 0.1 10^3/uL (0.0-0.7); EOSINOPHILS % (AUTO) 0.5 %; HGB - HEMOGLOBIN 10.9 g/dL (12.0-16.0); LYMPHOCYTES # (AUTO) 1.7 10^3/uL (1.5-3.5); LYMPHOCYTES % (AUTO) 11.6 %; MEAN CORPUSCULAR HEMOGLOBIN 29.7 pg (27.0-31.0); MEAN CORPUSCULAR HGB CONC 33.3 g/dL (32.0-36.0); MEAN CORPUSCULAR VOLUME 89.1 fL (81.0-99.0); MEAN PLATELET VOLUME 11.6 fL (7.9-10.8); MONOCYTES # (AUTO) 1.4 10^3/uL (0.0-1.0); MONOCYTES % (AUTO) 9.2 %; NEUTROPHILS # (AUTO) 11.4 10^3/uL (1.5-6.6); NEUTROPHILS % (AUTO) 75.5 %; PLT - PLATELET COUNT 192 10^3/uL (130-450); RED BLOOD COUNT 3.67 10^6/uL (4.20-5.40); RED CELL DISTRIBUTION WIDTH 12.9 % (12.0-15.0); WHITE BLOOD COUNT 15.1 x10^3/uL (4.8-10.8)
--- NOTE | 2020-12-12 12:36 | HISTORY & PHYSICAL EXAMINATION ---
DATE OF SERVICE: 12/12/2020 Physician: Urbano Lyle MD IDENTIFICATION: The patient is a 20-year-old primigravida who is currently 36 weeks and 2 days. Her EDC is 12/10. This was determined with early ultrasound in early visits. CHIEF COMPLAINT: Contractions. HISTORY OF PRESENT ILLNESS: Patient developed contractions at about 7:30 last evening. They become progressively stronger at 10 o'clock. She called and was told to wait until they became once every 5 minutes for at least an hour. She continued to stay at home and at 5 o'clock she stated the contract ions became much more painful and were are now every 5 minutes. Upon her first check by the nurse he r cervix was 2 cm, about 75% and very posterior. She had repeat check again and her cervix was then 3 cm, 80% and mid position. At this point, it was felt that she was probably progressing in labor, i t was decided to admit her and observe her. The patient has had problems with early contractions and received steroids for these. PAST OBSTETRIC HISTORY: The patient has started her OB care at 10 weeks EGA. She had early ultrasou nd for dating criteria. She did, however, throughout her developed some IUGR, which was fe lt to be in the 8th percentile. For this reason, she was transferred care and started to use a nonst ress test. She has tested for viruses such as TORCH and these were all negative. PAST MEDICAL HISTORY: Unremarkable. She has some depression, migraines, ovarian cysts. PAST SURGICAL HISTORY: [place] teeth. ALLERGIES: ZYRTEC. HABITS: The patient denies the use of alcohol, tobacco, street or addictive drugs. The patient did s moke at the beginning of her . FAMILY HISTORY: Positive for CVA, breast cancer, alcoholism as well as heart disease. SOCIAL HISTORY: The patient is . LABORATORY DATA: The patient's blood type is noted to be O positive. She is rubella immune, her STI checks were all negative, RPR, hep B, chlamydia as well as GC. Her HIV was also negative. Her 50 gr am Glucola was 120 and placed in habits. GBS test was positive. PHYSICAL EXAM: VITAL SIGNS: On admission, her temperature is 37.8 however, this decreased to 36.8, heart rate was 8 9, blood pressure 131/83 GENERAL: The patient is a well-developed, well-nourished female, she is having regular contractions, which were painful. PELVIC EXAMINATION: By nursing again this afternoon showed her cervix to be 3 cm, 80% and posterior. IMPRESSION: 20-year-old primigravida at 36 weeks and 2 days, who is early in her labor process. PLAN: Since she is GBS positive, will administer ampicillin and will await cervical change. TD: 12/12/2020 12:10
[2020-12-12] MEDS ORDERED: AMPICILLIN 1 GM in SODIUM CHLORIDE 0.9% MINIBAG 100 ML IV SCH (13:00)
--- NOTE | 2020-12-12 14:13 | PROVIDER PROGRESS NOTE ---
Labor Progress Note - Uterine Monitoring Uterine Monitoring Mode: positive: External toco Contraction Frequency (min/apart): NONE Uterine Resting Tone: positive: Soft - Monitoring Heart Rate Baseline: 135 Heart Rate Variability: positive: Moderate (6-25 bmp) Accelerations: positive: Present, 15x15 Decelerations: positive: None Strip Review: positive: Category I - Vaginal Exam Dilation (in cm): 3 Effacement (%): 80 Station: -2 Cervical Position: Midposition - Labor Progress Note Labor Progress Note/Additional Text: Contractions have ceased. Pt was sleeping. Reactive NST, negative PAPER FEEDER. 36w 2d. IUGR not in labor. Send home. Keep previous scheduled NST's and clinic Appts. Reviewed SROM, Labor, adn FM.
== END 2020-12-12 14:30 | disposition home or self-care (01) | DRG 833 ==
LOC: WFO 06:24 → FBP 06:24 → WFO 08:25 → FBP 08:26
PROVIDERS: ADMIT Obstetrics & Gynecology; ATTEND Obstetrics & Gynecology
DX: O60.03 Preterm labor without delivery, third trimester (principal); O99.820 Streptococcus B carrier state complicating pregnancy; O36.5930 Maternal care for other known or suspected poor fetal growth, third trimester, not applicable or unspecified; O99.353 Diseases of the nervous system complicating pregnancy, third trimester; G43.909 Migraine, unspecified, not intractable, without status migrainosus; Z20.822 Contact with and (suspected) exposure to COVID-19; O99.333 Smoking (tobacco) complicating pregnancy, third trimester; Z3A.36 36 weeks gestation of pregnancy; Z79.899 Other long term (current) drug therapy
CPT/HCPCS: 0202U; 59025; 85025; 86850; 86900; 86901; 99213

== ENCOUNTER 2020-12-17 09:32 | Outpatient (CLI) | payer MEDICAID ==
[2020-12-17 10:03] VITALS: BP 131/75
--- NOTE | 2020-12-17 22:43 | PROCEDURE REPORT ---
- HPI Diagnosis/Indication for NST: Intrauterine growth restriction Current EDU 01/07/21 Gestation 37 Weeks and 0 Days 1 Para 0 Vital Signs Temperature 97.8 F 12/17/20 10:02 Heart Rate 96 12/17/20 10:02 Respiratory Rate 18 12/17/20 10:02 Blood Pressure 131/75 H 12/17/20 10:02 O2 Saturation 100 12/17/20 10:02 Temperature 97.8 F 12/17/20 10:02 Heart Rate 96 12/17/20 10:02 Respiratory Rate 18 12/17/20 10:02 Blood Pressure 131/75 H 12/17/20 10:02 O2 Saturation 100 12/17/20 10:02 - NST Procedure NST Procedure Start Date 12/17/20 Start Time 09:45 Stop Time 10:16 Vibroacoustic Stimulation Used No Patient States Movement Yes EFM 135 mod boaz 15x15 accels no decels TOCO: quiet - Results and Plan Findings/Impression: 20 yo at 37+0 wga with growth restricted fetus here for NST CAt I tracing Cont twice weekyl NST and weekly VALORIE DX: growth restriction IUP at 37+0 wga
== END 2020-12-17 10:20 | disposition home or self-care (01) ==
LOC: WFO 09:32 → FBP 09:41 → WFO 10:20
PROVIDERS: ATTEND Obstetrics & Gynecology
DX: O36.5930 Maternal care for other known or suspected poor fetal growth, third trimester, not applicable or unspecified (principal); Z3A.37 37 weeks gestation of pregnancy
CPT/HCPCS: 59025

== ENCOUNTER 2020-12-18 10:06 | Outpatient (CLI) | payer MEDICAID ==
[2020-12-18 10:39] LABS: CREATININE,URINE 20.6 mg/dL; PROTEIN/CREATININE RATIO,URINE 0.3 (<=0.2)
[2020-12-18 10:41] LABS: BASOPHILS # (AUTO) 0.1 10^3/uL (0.0-0.1); BASOPHILS % (AUTO) 0.5 %; EOSINOPHILS # (AUTO) 0.1 10^3/uL (0.0-0.7); EOSINOPHILS % (AUTO) 0.8 %; HCT - HEMATOCRIT 32.7 % (37.0-47.0); HGB - HEMOGLOBIN 10.5 g/dL (12.0-16.0); LYMPHOCYTES # (AUTO) 1.6 10^3/uL (1.5-3.5); LYMPHOCYTES % (AUTO) 12.3 %; MEAN CORPUSCULAR HEMOGLOBIN 28.9 pg (27.0-31.0); MEAN CORPUSCULAR HGB CONC 32.1 g/dL (32.0-36.0); MEAN CORPUSCULAR VOLUME 90.1 fL (81.0-99.0); MEAN PLATELET VOLUME 11.3 fL (7.9-10.8); MONOCYTES # (AUTO) 1.3 10^3/uL (0.0-1.0); MONOCYTES % (AUTO) 10.2 %; NEUTROPHILS # (AUTO) 9.3 10^3/uL (1.5-6.6); NEUTROPHILS % (AUTO) 73.7 %; PLT - PLATELET COUNT 179 10^3/uL (130-450); RED BLOOD COUNT 3.63 10^6/uL (4.20-5.40); WHITE BLOOD COUNT 12.6 x10^3/uL (4.8-10.8)
[2020-12-18 10:52] LABS: ALBUMIN 3.2 g/dL (3.2-5.5); ALBUMIN/GLOBULIN RATIO 0.8 (1.0-2.2); BILIRUBIN,TOTAL 0.5 mg/dL (0.2-1.0); CALCIUM 9.6 mg/dL (8.5-10.3); CREATININE 0.5 mg/dL (0.4-1.0); POTASSIUM 3.7 mmol/L (3.5-5.0)
[2020-12-18 12:12] VITALS: BP 133/87
--- NOTE | 2020-12-18 13:08 | Ultrasound Report ---
PROCEDURE: Duplex Venous Limited INDICATIONS: Rule of DVT to left arm, pain, numbness TECHNIQUE: Real-time imaging, as well as color and pulse Doppler interrogation, were performed of the lower extr emity deep veins from the inguinal ligament to the popliteal fossa. COMPARISON: None. FINDINGS: The deep veins are normally compressible, and free of intraluminal thrombus. Color and pu lse Doppler demonstrate normal phasic intraluminal flow. There is normal augmentation response to di stal compression maneuver. IMPRESSION: No evidence of DVT is seen in visualized left upper extremity veins. Reviewed by: Isaac Javed MD on 12/18/2020 1:07 PM PST Approved by: Isaac Javed MD on 12/18/2020 1:07 PM PST Station ID: [id number]
--- NOTE | 2020-12-19 19:22 | PROCEDURE REPORT ---
- HPI Diagnosis/Indication for NST: Gestational Hypertension Current EDU 01/07/21 Gestation 37 Weeks and 1 Days 1 Para 0 Vital Signs Temperature 98.2 F 12/18/20 10:55 Blood Pressure 128/83 H 12/18/20 10:55 Temperature 98.2 F 12/18/20 10:55 Heart Rate 78 12/18/20 12:10 Respiratory Rate 18 12/18/20 12:10 Blood Pressure 133/87 H 12/18/20 12:10 O2 Saturation 100 12/18/20 12:10 - NST Procedure NST Procedure Start Date 12/18/20 Start Time 10:50 Stop Time 10:52 Vibroacoustic Stimulation Used No Patient States Movement Yes EFM 120 mod boaz 15x15 accels no decels TOCO: irreg - Results and Plan Findings/Impression: 20 yo at 37+1 wga seen in triage for pre-eclampsia evaluation Patient was evin in clinic and was noted to have elevated blood pressures and left arm pain with weakness. She was sent to triage at which time she had a normal EKG and negative UE dopplers. P:C was elevated, meeting criteria for pre-eclampsia She was counseled to be admitted for IOL She returned home to gather her belongings and will return later for admission for IOL Cat I tracing DX: Pre-eclampsia IUP at 37+1 wga growth restriction
== END 2020-12-18 13:00 | disposition home or self-care (01) ==
LOC: WFO 10:06 → FBP 10:24 → WFO 13:00
PROVIDERS: ATTEND Obstetrics & Gynecology
DX: O14.93 Unspecified pre-eclampsia, third trimester (principal); O36.5930 Maternal care for other known or suspected poor fetal growth, third trimester, not applicable or unspecified; Z3A.37 37 weeks gestation of pregnancy
CPT/HCPCS: 59025; 80053; 82570; 84156; 85025; 93005; 93971; 99213

== ENCOUNTER 2020-12-18 14:46 | Inpatient (IN) | payer MEDICAID ==
[2020-12-18] MEDS ORDERED: OXYTOCIN 10 UNIT/ML VIAL IM PRN (15:06)
[2020-12-18] MEDS ORDERED: METHYLERGONOVINE 0.2 MG/ML VIAL IM PRN (15:06)
[2020-12-18] MEDS ORDERED: TRANEXAMIC ACID IN NACL 1,000 MG/100 ML BAG IV PRN (15:06)
[2020-12-18] MEDS ORDERED: OXYTOCIN/SODIUM CHLORIDE 500 ML IV PRN (15:06)
[2020-12-18] MEDS ORDERED: CARBOPROST TROMETHAMINE 250 MCG/ML AMP IM PRN (15:06)
[2020-12-18] MEDS ORDERED: LIDOCAINE-MPF 1% 30 ML VIAL ID PRN (15:06)
[2020-12-18] MEDS ORDERED: SODIUM CHLORIDE FLUSH 0.9% 10 ML SYRINGE IVP PRN (15:06)
[2020-12-18] MEDS ORDERED: miSOPROStoL 200 MCG TABLET BC PRN (15:06)
[2020-12-18 16:02] LABS: BASOPHILS % (AUTO) 0.3 %; EOSINOPHILS # (AUTO) 0.1 10^3/uL (0.0-0.7); EOSINOPHILS % (AUTO) 0.6 %; HCT - HEMATOCRIT 31.7 % (37.0-47.0); HGB - HEMOGLOBIN 10.2 g/dL (12.0-16.0); LYMPHOCYTES # (AUTO) 1.7 10^3/uL (1.5-3.5); LYMPHOCYTES % (AUTO) 12.9 %; MEAN CORPUSCULAR HEMOGLOBIN 28.7 pg (27.0-31.0); MEAN CORPUSCULAR HGB CONC 32.2 g/dL (32.0-36.0); MEAN CORPUSCULAR VOLUME 89.3 fL (81.0-99.0); MEAN PLATELET VOLUME 11.9 fL (7.9-10.8); MONOCYTES # (AUTO) 1.3 10^3/uL (0.0-1.0); MONOCYTES % (AUTO) 10.2 %; NEUTROPHILS # (AUTO) 9.6 10^3/uL (1.5-6.6); PLT - PLATELET COUNT 174 10^3/uL (130-450); RED BLOOD COUNT 3.55 10^6/uL (4.20-5.40); RED CELL DISTRIBUTION WIDTH 13.1 % (12.0-15.0)
[2020-12-18] MEDS ORDERED: SODIUM CHLORIDE FLUSH 0.9% 10 ML SYRINGE IVP SCH (17:00)
[2020-12-18] MEDS ORDERED: miSOPROStoL 100 MCG TABLET BC SCH (17:45)
--- NOTE | 2020-12-18 19:43 | ANESTHESIA ---
Pre-Anesthesia VS, & Labs - Diagnosis labor induction, PIH - Procedure labor epidural Vital Signs: Temp Pulse Resp BP Pulse Ox 36.8 C 90 20 156/92 H 100 12/18/20 16:42 12/18/20 15:00 12/18/20 15:00 12/18/20 15:00 12/18/20 15:00 Height: 5 ft 3 in Weight (kg): 76.657 kg Body Mass Index: 29.9 BMI Classification: Overweight - NPO Other - Is Patient ?: Yes - Lab Results Current Lab Results: Laboratory Tests 12/18/20 15:45: Blood Type O POSITIVE, Antibody Screen NEGATIVE 12/18/20 15:45: WBC 13.0 H, RBC 3.55 L, Hgb 10.2 L, Hct 31.7 L, MCV 89.3, MCH 28.7, MCHC 32.2, RDW 13.1, Plt Count 174, MPV 11.9 H, Neut # (Auto) 9.6 H, Lymph # (Auto) 1.7, [place] # (Auto) 1.3 H, Eos # (Auto) 0.1, Baso # (Auto) 0.0, Absolute Nucleated RBC 0.00, Nucleated RBC % 0.0 Fish Bones: 12/18/20 15:45 Home Medications and Allergies Active Medications Carboprost Tromethamine (Carboprost Tromethamine 250 Mcg/Ml Amp) 250 mcg IM Q15M PRN PRN Reason: Step 4: Hemorrhage protocol Stop: 12/23/20 15:07 Oxytocin/Sodium Chloride (Pitocin/Sodium Chloride) 500 mls @ 999 mls/hr IV PRN PRN; Protocol PRN Reason: POST- HEMORR PREVENTION Stop: 12/23/20 15:07 Tranexamic Acid (Tranexamic 1,000 Mg/100ml-Nacl) 1,000 mg in 100 mls @ 600 mls/hr IV .ONCE PRN PRN Reason: EBL >1200mL and within 3hr Stop: 12/23/20 15:07 Lactated Ringer's (Lr) 1,000 mls @ 100 mls/hr IV .Q10H DENISE Oxytocin/Sodium Chloride (Pitocin/Sodium Chloride) 500 mls @ 1 mls/hr IV TITR DENISE; Protocol Lidocaine HCl (Lidocaine-Mpf 1% 30 Ml Vial) 30 ml ID .ONCE PRN PRN Reason: PERINEAL REPAIR Stop: 12/23/20 15:07 Methylergonovine Maleate (Methylergonovine 0.2 Mg/Ml Vial) 0.2 mg IM .ONCE PRN PRN Reason: Step 2: Hemorrhage protocol Stop: 12/23/20 15:07 Misoprostol (Misoprostol 200 Mcg Tablet) 800 mcg BC .ONCE PRN PRN Reason: Step 3: Hemorrhage protocol Stop: 12/23/20 15:07 Misoprostol (Misoprostol 100 Mcg Tablet) 50 mcg BC ONCE DENISE Stop: 12/18/20 21:00 Last Admin: 12/18/20 17:48 Dose: 50 mcg Documented by: Oxytocin (Oxytocin 10 Unit/Ml Vial) 10 unit IM .ONCE PRN PRN Reason: Step one: If no IV access Stop: 12/23/20 15:07 Sodium Chloride (Sodium Chloride Flush 0.9% 10 Ml Syringe) 10 ml IVP 0100,0900,1700 DENISE Sodium Chloride (Sodium Chloride Flush 0.9% 10 Ml Syringe) 10 ml IVP PRN PRN PRN Reason: NEEDED PER PROVIDER ORDERS Allergies/Adverse Reactions: Allergies Allergy/AdvReac Type Severity Reaction Status Date / Time cetirizine HCl * Allergy Itching Verified 06/25/20 23:33 [From [facility]] Anes History & Medical History - Anesthetic History Anesthesia Complications: reports: No previous complications - Medical History Cardiovascular: reports: None (PIH) Pulmonary: reports: Asthma Gastrointestinal: reports: GERD Neuro: reports: Migraines Smoking Status: Former smoker History of Cancer?: No - Surgical History Other Past Surgical History: wisdom teeth extraction - Obstetrical History Events: positive: induced HTN (37 weeks) Exam General: Alert Dental: WNL Mouth Opening: Greater than 4 Fingerbreadths Neck Mobility: Normal Mallampati classification: I Thyromental Distance: greater than 6 cm Respiratory: Lungs clear Cardiovascular: Regular rate Mental/Cognitive Status: Alert/Oriented X3 Plan Anesthesia Type: Epidural Consent for Procedure(s) Verified and Reviewed: Yes Code Status: Attempt Resuscitation ASA classification: 2-Mild systemic disease Is this case an emergency?: No
[2020-12-18] MEDS ORDERED: OXYTOCIN/SODIUM CHLORIDE 500 ML IV SCH (22:00)
[2020-12-18] MEDS: LACTATED RINGERS 1,000 ML IV SCH (22:15)
[2020-12-18] MEDS ORDERED: AMPICILLIN 2 GM in SODIUM CHLORIDE 0.9% MINIBAG 100 ML IV SCH (22:30)
[2020-12-19] MEDS: AMPICILLIN 1 GM in SODIUM CHLORIDE 0.9% MINIBAG 100 ML IV SCH ×3 (02:24→10:38)
[2020-12-19] MEDS: LACTATED RINGERS 1,000 ML IV SCH (09:46)
[2020-12-19] MEDS ORDERED: ROPIVACAINE 0.2% 200 MG/100 ML BAG EP ONE (10:15)
[2020-12-19] MEDS ORDERED: ROPIVACAINE 0.2% 200 MG/100 ML BAG EP PRN (10:29)
[2020-12-19] MEDS ORDERED: NALBUPHINE 10 MG/ML AMP IVP PRN (10:29)
[2020-12-19] MEDS ORDERED: ePHEDrine 50 MG/ML VIAL IVP PRN (10:29)
[2020-12-19] MEDS ORDERED: NALOXONE 0.4 MG/ML VIAL IVP PRN (10:29)
[2020-12-19] MEDS ORDERED: diphenhydrAMINE INJ 50 MG/ML VIAL IVP PRN (10:29)
[2020-12-19] MEDS ORDERED: METOCLOPRAMIDE 10 MG/2 ML VIAL IVP PRN (10:29)
[2020-12-19] MEDS ORDERED: ONDANSETRON 4 MG/2 ML VIAL IVP PRN (10:29)
--- NOTE | 2020-12-19 11:15 | HISTORY & PHYSICAL EXAMINATION ---
Admit History - Visit Reason Visit Reason: Other (IOL for pre-eclampsia) - : 1 Parity: 0 Risk/History: positive: None, Other Complications This : positive: Other (Growth restricted fetus labor Pre-eclampsia with mild features) - Mother's Labs Mother's Blood Type: positive: O Mother's RH: positive: Positive GBS: positive: Group B Strep Positive Rubella Status: positive: Immune - Other Maternal History Other Maternal History: Patient is a 20 yo at 37+1 wga with complicated by growth restriction now with preeclampsia. Patient was seen in clinic today and had elevated blood pressures to the 150s/90s. Remained elevated on repeat. Sent to [facility] for eval and had elevated urine protein, giving dx of pre-eclampsia. No SEWELL/vision change/RUQ pain. Remainder of PIH labs unremarkable. Also has pain in left arm radiating to hand. Decreased strength relative to right on exam. Negative doppler studies. Normal EKG (reviewed by Heidi Muniz MD) Here for IOL Consent signed in triage today course as below: Anxiety: contracts for safety -On sertraline -Referral for therapy submitted prior visit Growth Restriction: 12/07/20 us showed EFW 9%ile Rec'd BMZ earlier in Initial US: at 7.6wks c/w LMP for BRANDIE of 01/07/2021 O pos/Rubella immune VZV: immune Genetic testing: educated and declines FAS: Placenta anterior. VALORIE 72%. EFW 17%. 3VC. Growth US: VALORIE 14 (42%); Femur length 1%, EFW 6%. Low growth since last scan. Seen by MFDaysi PTL concerns- now patient JUSTINA US: 10/31/20 3%ile 11/21/20 8%ile 12/07/20 9%ile Glucola - 120 TDAP 10/10/2021 Influenza 07/13/2020 GBS @ 29.3wks- negative.POSITIVE On 11/25/20 HSV: Denies self and parter. Positive for oral HSV. Breast pump Rx : 10/29/2020 MOD: . Fiance: Andrea. IOL today for preE with growth restriction pp contraception: TBD PAP: 02/08/2020-neg PMH: Depression Migraines Ovarian Cysts Stomach Ulcer PSH: [place] teeth extraction Meds/Allgy - Home Medications Home Medications: Ambulatory Orders Medication Instructions Recorded Confirmed SUMAtriptan [Imitrex] 25 mg PO BID PRN #10 tablet 06/15/19 - Allergies Allergies/Adverse Reactions: Allergies Allergy/AdvReac Type Severity Reaction Status Date / Time cetirizine HCl * Allergy Itching Verified 06/25/20 23:33 [From [facility]] Review of Systems - Other Findings Other Findings: As per HPI, otherwise remaining systems are negative Physical - Abdominal Exam Vital Signs: Temp Pulse Resp BP Pulse Ox 98.2 F 90 20 156/92 H 100 12/18/20 16:42 12/18/20 15:00 12/18/20 15:00 12/18/20 15:00 12/18/20 15:00 Contraction Frequency (min/apart): irreg Contraction Intensity: positive: Mild to moderate Uterine Resting Tone: positive: Soft - Monitoring Heart Rate Baseline: 140 mod boaz 15x15 accels no decels Strip Review: positive: Category I - Presentation Presentation: positive: Vertex - Vaginal Exam Membranes: positive: Membranes intact Dilation (in cm): 3 Effacement (%): 80 Station: positive: -2 Cervical Position: positive: Midposition - Speculum Exam Speculum Exam Performed: positive: No - Other Notes Labor Progress Note/Additional Text: GEN: NAD HEENT: NCAT CV: RRR RESP: CTAB ABD: gravid, S&NT/ND. No RUQ TTP BSUS shows vertex presentation SVE 3/80/-2 PELVIC: NEFG, Nl BSUMA EXT: WWP, no LE edema NEURO: A&O PSYCH: appropriate affect Plan for Labor - Plan For Labor Plan for Labor: IOL: Favorable cervix; no change from prior exam -Give one dose miso 50 mcg BC -Start pitocin per protocol once s/p miso -AROM as appropriate FWB: EFW 9%ile, vertex, cat I tracing, GBS positive -CEFM -Start ampicillin with pitocin PRE-E: Mild range pressures and no symptoms/labs c/w severe features at present Start magnesium with onset of severe range features IV medications for severe range pressures (>160 SBP/>110 DBP) Avoid ibuprofen PAIN: epidural as desired -Fentanyl 50 mcg IV Q1H to max dose of 200 mcg and not to be given after 7 cm -Nitrous oxide as desired In-patient care
[2020-12-19] MEDS ORDERED: LABETALOL 20 MG/4 ML SYRINGE IVP PRN ×3 (11:30)
[2020-12-19] MEDS ORDERED: hydrALAZINE INJ 20 MG/ML VIAL IVP PRN ×2 (11:30)
[2020-12-19] MEDS ORDERED: NIFEdipine 10 MG CAPSULE PO PRN (11:30)
[2020-12-19] MEDS ORDERED: fentaNYL 100 MCG/2 ML VIAL IVP PRN (11:30)
--- NOTE | 2020-12-19 12:04 | PROVIDER PROGRESS NOTE ---
Subjective - Prog Note Date Prog Note Date: 12/19/20 Prog Note Time: 08:30 - Subjective Subjective: Patient on 12 mU/min of pitocin. Mild discomfort. Having BF and tolerating po. BPs in normal to mild range. No PIH symptoms S/p miso 50 mcg BC x1 overnight Arm pain improved from yesterday. Objective - Vital Signs/Intake & Output Reviewed Vital Signs: Yes Vital Signs: see in Centricity Intake & Output: Intake & Output 12/16/20 12/17/20 12/18/20 12/19/20 23:59 23:59 23:59 23:59 Intake Total 600 2510 Balance 600 2510 - Objective General Appearance: positive: No acute distress Respiratory: positive: No respiratory distress Cardiovascular: positive: Other (RR) Abdomen: positive: Non-tender, Other (gravid, S&NT/ND. 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) Skin: positive: Color nml, No rash, Warm, Dry Extremities: positive: Non-tender, No pedal edema - Lab Results Fish Bones: 12/18/20 15:45 Other Labs: Lab Results x24hrs 12/18/20 12/18/20 12/18/20 Range/Units 16:35 15:45 15:45 WBC 13.0 H (4.8-10.8) x10^3/uL RBC 3.55 L (4.20-5.40) 10^6/uL Hgb 10.2 L (12.0-16.0) g/dL Hct 31.7 L (37.0-47.0) % MCV 89.3 (81.0-99.0) fL MCH 28.7 (27.0-31.0) pg MCHC 32.2 (32.0-36.0) g/dL RDW 13.1 (12.0-15.0) % Plt Count 174 (130-450) 10^3/uL MPV 11.9 H (7.9-10.8) fL Neut # (Auto) 9.6 H (1.5-6.6) 10^3/uL Lymph # (Auto) 1.7 (1.5-3.5) 10^3/uL [place] # (Auto) 1.3 H (0.0-1.0) 10^3/uL Eos # (Auto) 0.1 (0.0-0.7) 10^3/uL Baso # (Auto) 0.0 (0.0-0.1) 10^3/uL Absolute Nucleated RBC 0.00 x10^3/uL Nucleated RBC % 0.0 /100WBC Coronavirus (PCR) NEGATIVE Blood Type O POSITIVE Antibody Screen NEGATIVE - Other Results/Comments Other Results/Comments: SVE 3.5/90/-2 Minimal change from prior exam Assessment/Plan - Problem List (1) Preeclampsia Impression: Admitted for pre-eclampsia without severe features -IV antihypertensive ins setting of severe range pressures (SBP> 160/DBP>110) -Magnesium infusion for severe features; not indicated at present -Avoid ibuprofen pstpartum (2) Encounter for induction of labor Impression: Favorable cervix at admission -S/p miso 50 mcg BC x1 -Currently on pitocin 12 mU/min -AROM as indicatec (3) affected by growth restriction Impression: 12/07/20 us shows EFW 9%ile, appropriate interval growth on Q4 week us -CEFM PAIN: Epidural as desired Anticipate
[2020-12-19] MEDS ORDERED: HYDROCORTISONE 1% CREAM 28 GM TUBE PR PRN (12:17)
[2020-12-19] MEDS ORDERED: oxyCODONE 5 MG TABLET PO PRN (12:17)
[2020-12-19] MEDS ORDERED: WITCH HAZEL/GLYCERIN 1 PAD TOP PRN (12:17)
[2020-12-19] MEDS ORDERED: LACTATED RINGERS 1,000 ML IV SCH (13:00)
--- NOTE | 2020-12-19 14:59 | DELIVERY NOTE ---
Delivery Note - Infant Delivery Method Infant Delivery Method: positive: Spontaneous vaginal delivery - Cervical Ripening Method Cervical Ripening Method: positive: Misoprostil - Presentation Presentation: positive: Vertex, Compound (left hand) - Nuchal Cord Nuchal Cord: positive: None - Amniotic Fluid Description Amniotic Fluid Description: positive: Clear - Laceration Laceration: positive: 1st degree - Suture Suture Type: positive: Vicryl Suture Size: positive: 3-0 - Delivery Outcome Delivery Outcome: positive: Livebirth - [place] : positive: Placed in direct skin contact with mother, Bulb syringe sex: positive: Female (Apgars 9/9, weight 5lb 3oz) - Cord Cord: positive: 3 vessels - Placenta Placenta: positive: Intact - Estimated Blood Loss Estimated Blood Loss (in cc): 250 - Post Delivery Events Post Delivery Events: positive: No post delivery events - Delivery Comments (Free Text/Narrative) Delivery Comments (Free Text/Narrative): Patient was brought in to labor and delivery for cervical ripening secondary to intrauterine growth retardation as well as -induced hypertension which converted to preeclampsia. She received misoProstal. At 946 she spontaneously ruptured clear fluid. She had an epidural placed at 1015 for maternal comfort. She was noted to be 4 cm at 1029. She showed excellent progress and 1123 was 10 cm /+1 she started pushing at 1133. At 1159 following a 22-minute second stage she delivered a live female infant left occiput anterior with a compound left hand. At time of delivery she was suffered a first-degree laceration. was placed on maternal abdomen and allowed the cord to pulsate for the next 2 minutes. At this point the cord was doubly clamped divided. Placenta followed at 1201 was inspected noted to be intact. Her laceration was repaired with 3-0 Monocryl. Both mother and tolerated delivery well. Sponge and needle counts were correct.
[2020-12-19] MEDS: ACETAMINOPHEN 325 MG TABLET PO PRN (16:28)
[2020-12-19] MEDS: DOCUSATE SODIUM 100 MG CAPSULE PO SCH (20:24)
[2020-12-19] MEDS: CELECOXIB 100 MG CAPSULE PO SCH (20:24)
[2020-12-19] MEDS ORDERED: LIDOCAINE VISCOUS 2% 15 ML UDC MM PRN (21:36)
[2020-12-20] MEDS: ACETAMINOPHEN 325 MG TABLET PO PRN ×4 (00:24→22:29)
[2020-12-20 05:20] LABS: BASOPHILS % (AUTO) 0.3 %; EOSINOPHILS # (AUTO) 0.2 10^3/uL (0.0-0.7); EOSINOPHILS % (AUTO) 1.5 %; HCT - HEMATOCRIT 30.6 % (37.0-47.0); HGB - HEMOGLOBIN 9.7 g/dL (12.0-16.0); LYMPHOCYTES # (AUTO) 2.1 10^3/uL (1.5-3.5); LYMPHOCYTES % (AUTO) 18.2 %; MEAN CORPUSCULAR HEMOGLOBIN 28.5 pg (27.0-31.0); MEAN CORPUSCULAR HGB CONC 31.7 g/dL (32.0-36.0); MEAN PLATELET VOLUME 11.2 fL (7.9-10.8); MONOCYTES # (AUTO) 1.2 10^3/uL (0.0-1.0); MONOCYTES % (AUTO) 10.3 %; NEUTROPHILS # (AUTO) 7.9 10^3/uL (1.5-6.6); NEUTROPHILS % (AUTO) 67.1 %; PLT - PLATELET COUNT 164 10^3/uL (130-450); RED CELL DISTRIBUTION WIDTH 13.2 % (12.0-15.0); WHITE BLOOD COUNT 11.7 x10^3/uL (4.8-10.8)
[2020-12-20 05:23] LABS: ALBUMIN 2.9 g/dL (3.2-5.5); ALBUMIN/GLOBULIN RATIO 0.8 (1.0-2.2); BILIRUBIN,TOTAL 0.6 mg/dL (0.2-1.0); CALCIUM 9.1 mg/dL (8.5-10.3); CREATININE 0.5 mg/dL (0.4-1.0); POTASSIUM 3.9 mmol/L (3.5-5.0); TOTAL PROTEIN 6.4 g/dL (6.7-8.2); URIC ACID 4.5 mg/dL (2.6-7.2)
[2020-12-20] MEDS: DOCUSATE SODIUM 100 MG CAPSULE PO SCH ×2 (08:32→20:43)
[2020-12-20] MEDS: CELECOXIB 100 MG CAPSULE PO SCH ×2 (08:32→20:43)
--- NOTE | 2020-12-20 08:41 | PROVIDER PROGRESS NOTE ---
Subjective - Prog Note Date Prog Note Date: 12/20/20 Prog Note Time: 08:39 - Subjective Pt reports feeling: Improved (Pt jhony SEWELL. Pain 0/10. 5/10 with breast feeding.) Objective - Vital Signs/Intake & Output Reviewed Vital Signs: Yes Vital Signs: Vital Signs x48h Temp Pulse Resp BP Pulse Ox 12/20/20 06:10 142/92 H 12/20/20 05:20 36.6 C 82 16 134/92 H 99 12/20/20 05:10 134/98 H 12/20/20 02:00 36.4 C L 80 16 137/96 H 99 Intake & Output: Intake & Output 12/17/20 12/18/20 12/19/20 12/20/20 23:59 23:59 23:59 23:59 Intake Total 600 3200.583 Output Total 1625 Balance 600 1575.583 - Objective General Appearance: positive: No acute distress, Alert Abdomen: positive: Non-tender, Mass (U-1) Extremities: negative: Calf tenderness, Jun's sign/cords Reflexes: Knee (R): 3+, Knee (L): 3+ - Lab Results Fish Bones: 12/20/20 05:09 12/20/20 05:09 Other Labs: Lab Results x24hrs 12/20/20 12/20/20 Range/Units 05:09 05:09 WBC 11.7 H (4.8-10.8) x10^3/uL RBC 3.40 L (4.20-5.40) 10^6/uL Hgb 9.7 L (12.0-16.0) g/dL Hct 30.6 L (37.0-47.0) % MCV 90.0 (81.0-99.0) fL MCH 28.5 (27.0-31.0) pg MCHC 31.7 L (32.0-36.0) g/dL RDW 13.2 (12.0-15.0) % Plt Count 164 (130-450) 10^3/uL MPV 11.2 H (7.9-10.8) fL Neut # (Auto) 7.9 H (1.5-6.6) 10^3/uL Lymph # (Auto) 2.1 (1.5-3.5) 10^3/uL [place] # (Auto) 1.2 H (0.0-1.0) 10^3/uL Eos # (Auto) 0.2 (0.0-0.7) 10^3/uL Baso # (Auto) 0.0 (0.0-0.1) 10^3/uL Absolute Nucleated RBC 0.00 x10^3/uL Nucleated RBC % 0.0 /100WBC Sodium 134 L (135-145) mmol/L Potassium 3.9 (3.5-5.0) mmol/L Chloride 104 (101-111) mmol/L Carbon Dioxide 23 (21-32) mmol/L Anion Gap 7.0 (6-13) BUN 8 (6-20) mg/dL Creatinine 0.5 (0.4-1.0) mg/dL Estimated GFR (MDRD) 156 (>89) Glucose 82 (70-100) mg/dL Uric Acid 4.5 (2.6-7.2) mg/dL Calcium 9.1 (8.5-10.3) mg/dL Total Bilirubin 0.6 (0.2-1.0) mg/dL AST 23 (10-42) IU/L ALT 16 (10-60) IU/L Alkaline Phosphatase 133 H (42-121) IU/L Total Protein 6.4 L (6.7-8.2) g/dL Albumin 2.9 L (3.2-5.5) g/dL Globulin 3.5 (2.1-4.2) g/dL Albumin/Globulin Ratio 0.8 L (1.0-2.2) Assessment/Plan - Problem List (1) (spontaneous vaginal delivery) Impression: Healing. (2) Preeclampsia Impression: Blood pressure 130's /80's. stable. awaiting P/C continue care.
[2020-12-20] MEDS ORDERED: SERTRALINE 50 MG TABLET PO SCH (09:00)
[2020-12-20 10:47] LABS: PROTEIN/CREATININE RATIO,URINE 0.1 (<=0.2)
[2020-12-20] MEDS ORDERED: GABAPENTIN 400 MG CAPSULE PO ONE (21:32)
[2020-12-20] MEDS ORDERED: AMOX/CLAV 875 MG/125 MG TABLET PO SCH (21:35)
[2020-12-21] MEDS: ACETAMINOPHEN 325 MG TABLET PO PRN (04:01)
[2020-12-21 08:13] VITALS: BP 120/67
--- NOTE | 2020-12-21 08:55 | PROVIDER PROGRESS NOTE ---
Subjective - Prog Note Date Prog Note Date: 12/21/20 Prog Note Time: 08:53 - Subjective Pt reports feeling: Improved (Pain 2/10, breast feeding, milk not in yet. positive flatus but no stool.) Objective - Vital Signs/Intake & Output Reviewed Vital Signs: Yes Vital Signs: Vital Signs x48h Temp Pulse Resp BP Pulse Ox 12/21/20 08:12 36.6 C 85 18 120/67 99 12/21/20 04:29 36.5 C 83 16 134/87 H 100 Intake & Output: Intake & Output 12/18/20 12/19/20 12/20/20 12/21/20 23:59 23:59 23:59 23:59 Intake Total 600 3200.583 Output Total 1625 Balance 600 1575.583 - Objective General Appearance: positive: No acute distress, Alert Respiratory: positive: Chest non-tender, No respiratory distress, Breath sounds nml Cardiovascular: positive: Regular rate & rhythm, No murmur, No gallop Abdomen: positive: Non-tender, No organomegaly, Nml bowel sounds, Mass (U-3) Back: negative: CVA tenderness (R), CVA tenderness (L) Extremities: negative: Calf tenderness, Jun's sign/cords - Lab Results Fish Bones: 12/20/20 05:09 12/20/20 05:09 Other Labs: Lab Results x24hrs 12/20/20 Range/Units 10:10 Urine Creatinine 128.0 mg/dL Ur Total Protein Timed 14 mg/dL Protein/Creatinin Ratio 0.1 (<=0.2) Assessment/Plan - Problem List (1) (spontaneous vaginal delivery) Impression: excellent progress no BM miralax Send home reviewed breast mastitis RTC one week. discharge meds tylenol (2) Preeclampsia Impression: P/C ratio 0.1 labs normalized
--- NOTE | 2020-12-21 08:58 | Discharge Plan ---
Discharge Plan Problem Reviewed?: Yes Disposition: Home, Self Care Condition: Good Diet: Regular Activity Restrictions: pelvic rest 6 weeks Shower Restrictions: No Driving Restrictions: No Weight Bearing: Full Weight No Smoking: If you smoke, Please STOP! Call for help.
[2020-12-21] MEDS ORDERED: polyethylene glycoL 3350 17 GM PACKET PO PRN (09:00)
[2020-12-21] MEDS: DOCUSATE SODIUM 100 MG CAPSULE PO SCH (09:33)
[2020-12-21] MEDS: CELECOXIB 100 MG CAPSULE PO SCH (09:33)
--- NOTE | 2020-12-21 14:10 | Labor Flowsheet ---
Labor Flowsheet Datetime Report Generated by CPN: 12/21/2020 14:10 Datetime: 12/21/2020 07:57 VITAL SIGNS NBP Sys/Lanny/Mean (mmHg): 120 : 67 : 80 Pulse: 82 Datetime: 12/20/2020 23:55 SpO2 (%): 98 Datetime: 12/19/2020 14:00 Stage of : Recovery Respirations: 16 Temperature (C): 36.7 Temperature Route: Oral Datetime: 12/19/2020 11:55 UTERINE ACTIVITY Monitor Mode: External Frequency (min): 2-3 Quality: Strong Duration (sec): 60-90 Pattern: Normal: <= 5 Contractions in 10 Minutes Resting Tone (Palpate): Relaxed Comments: 130s, with decels while pushing, last one down to the 80-90s. pt delivered at 1155 Datetime: 12/19/2020 11:50 LaborFlag: Labor Datetime: 12/19/2020 11:45 Contraction Comments: pushing Datetime: 12/19/2020 11:43 Pushing Position: Pushing with Contractions Pushing Progress: Descent with Pushing Datetime: 12/19/2020 11:33 STAGE 2 Pushing: Urge to Push Datetime: 12/19/2020 11:32 COMMUNICATION Communication: Provider at Bedside Communication Comments: giem Datetime: 12/19/2020 11:30 ASSESSMENT A Monitor Mode: Telemetry FHR Baseline Rate : 135 FHR Baseline Changes: No Baseline Change Variability: Moderate 6-25 bpm Accelerations: 15X15 Category: Category I Oxygen Method: Room Air Datetime: 12/19/2020 11:23 VAGINAL EXAM Dilatation (cm): 10.0 Effacement (%): 100 Station: 1 Exam by: dr giem Cervix, Position: Anterior Datetime: 12/19/2020 11:20 I/O Interventions: Oleary Cath Inserted Datetime: 12/19/2020 11:15 Decelerations: None Datetime: 12/19/2020 10:45 Anesthesia Level Check: T10- Umbilicus Datetime: 12/19/2020 10:41 Antibiotics: Ampicillin IV 1 Gm Datetime: 12/19/2020 10:29 Vaginal Bleeding: Normal Show Cervix, Consistency: Soft Datetime: 12/19/2020 10:20 Patient Position/Activity: Right Tilt Datetime: 12/19/2020 10:15 PAIN Pain Scale: 9 Pain Coping: Sleeping; Crying MEDICATIONS Pitocin (milliunits): Decreased to @ 6 Epidural Procedure: Loading Dose Datetime: 12/19/2020 10:10 PATIENT CARE IV/Blood Work: IV Bolus Started Datetime: 12/19/2020 10:05 PROCEDURE TIME OUT Procedure Verify: Correct Patient Identity; Correct Side and Site are Marked; Accurate Procedure Co nsent Form; Agreement on Procedure to be Done; Correct Patient Position; Addressed Need to Administer Antibiotics or Fluids for Irrigation; Safety Precautions Based on Patient History or Medication Use ANESTHESIA Anesthesia Plans: Epidural Epidural Positioning: Sitting Datetime: 12/19/2020 09:46 Amniotic Fluid Color: Clear Amniotic Fluid Amount: Moderate Membrane Comments: will confirm with rom+ when order is recieved Notification Reason: Labor Status; Pain Datetime: 12/19/2020 09:19 Monitor Interventions for UA: [place] Adjusted Datetime: 12/19/2020 08:14 Monitor Interventions for FHR: Ultrasound Adjusted Datetime: 12/19/2020 07:43 Provider Notified (Name): dr giem will be in surgery, ok for pt to have epidural when requested, pe r dr geim will not go up on pitocin until Dr Giem is finished in OR. Datetime: 12/19/2020 06:49 Hygiene: Oral Care; Carito Care; Complete Bath Datetime: 12/19/2020 06:32 Patient Care Comments: pt getting into tub with assistance from partner Teaching Comments: tub safety, verbalizes understanding Datetime: 12/19/2020 06:02 Pain Presence: Intermittent Pain Type: Contraction; Pressure Pain Location: Abdomen; Back Pain Relief Measures: Comfort Measures Pain Assessment Comments: pt coping well, partner involved Comfort Measures: Breathing/Relaxation; Coaching; Back Rub Given; Family Support Datetime: 12/19/2020 03:30 MATERNAL ASSESSMENT Level of Consciousness: Alert DTR's/Clonus: DTRs 2+ Headache: Denies Nausea/Vomiting: Denies RUQ Epigastric Pain: Denies Datetime: 12/19/2020 02:28 TEACHING Instructional Method: Verbal; Verbalized Understanding Datetime: 12/18/2020 22:15 Medication Comments: pitocin verified by detailer Medications: Antibiotics; Pitocin Datetime: 12/18/2020 22:10 Pitocin Checklist: At Least 1 Acceleration of 15 bpm x 15 Seconds in 30 Minutes or Adequate Variabi lity; No More than 1 Late Deceleration Occurred in Past 30 Minutes; No More than 2 Variable Decelerat ions > 60 Seconds in Duration and decreasing >60 bpm in 30 minutes; No More than 5 Uterine Contractio ns in 10 Minutes for any 20 Minute Interval; Uterus Palpates Soft between Contractions Datetime: 12/18/2020 21:46 Procedures: Sterile Vag Exam Datetime: 12/18/2020 19:32 Anesthesia Comments: CASHIER SELF SERVICE GASOLINE at bedside obtaining informed consent Datetime: 12/18/2020 19:27 Plan of Care: Plan of Care Discussed; Vaginal Delivery; Induction Unit Routine: Call Claudio; Photography; Monitoring; Safety/Fall Risk Prevention; Bathroom Privi leges; Medications Labor/Induction: Labor Stages; Induction; Tachysystole Interventions; Interventions; Activity Pain Management: Epidural; Pain Scale/Goals; Comfort Measures Datetime: 12/18/2020 19:13 Breath Sounds, Left: Clear and Equal Breath Sounds, Right: Clear and Equal Datetime: 12/18/2020 17:48 Cervical Ripening Agents: Cytotec @
--- NOTE | 2020-12-26 14:17 | DISCHARGE SUMMARY ---
Physician: Urbano Lyle MD DATE OF ADMISSION: 12/18/2020 DATE OF DISCHARGE: 12/21/2020 ADMITTING DIAGNOSES 1. A 20-year-old, G1, P0. 2. 37 weeks 1 day. 3. Preeclampsia. 4. Group B strep positive. 5. Intrauterine growth restriction. DISCHARGE DIAGNOSES 1. A 20-year-old, G1, P0. 2. 37 weeks 1 day. 3. Preeclampsia. 4. Group B strep positive. 5. Intrauterine growth restriction. 6. Spontaneous vaginal delivery, first-degree laceration repair. PROCEDURES 1. Misoprostol cervical ripening. 2. Pitocin. 3. Epidural. 4. Assisted vaginal delivery. PRESENTING HISTORY: The patient is a 20-year-old 1, para 0. Of note is that she was noted i n the clinic to have blood pressures of 150s/90s. These remained elevated and for this reason, she u nderwent preeclampsia labs, which showed evidence of a protein-creatinine ratio of 0.3. It was decid ed to proceed on delivery. Her cervix was noted to be favorable. She received misoprostol 50 mcg an d went into spontaneous labor in the morning. LABORATORIES: CBC on admission showed a hemoglobin of 10.5. It fell to 9.7 at delivery. [place] was initially 12.6 and upon discharge, it was 11.7. Her platelets remained in the 170s-160s range. Her chemistries were all normal. There was no elevation of her LFTs. Her protein-creatinine ratio was 0.3 on admission, but fell to 0.1 on discharge. She had a coronavirus test, which was noted to be negative. HOSPITAL COURSE: The patient was admitted, at which time she received misoprostol for cervical ripen ing. Her cervix progressed. She spontaneously ruptured. She had an epidural placed for labor analg esia. Her delivery was unremarkable. She had a first-degree laceration at time of delivery. Her po stpartum course was also normal. Her blood pressures normalized. Her protein-creatinine ratio becam e 0.1. She was discharged to home. She is instructed to follow up in the clinic in 1 week. She was to have a blood pressure check when she brought the infant in. TD: 12/26/2020 13:57
== END 2020-12-21 11:55 | disposition home or self-care (01) | DRG 807 ==
LOC: WFO 14:46 → FBP 14:47 → WFO 15:05 → FBP 15:06
PROVIDERS: ADMIT Obstetrics & Gynecology; ATTEND Obstetrics & Gynecology
PROC: 10E0XZZ Delivery of Products of Conception, External Approach (ICD-10-PCS; principal; 2020-12-19)
PROC: 0HQ9XZZ Repair Perineum Skin, External Approach (ICD-10-PCS; 2020-12-19)
DX: O14.04 Mild to moderate pre-eclampsia, complicating childbirth (principal); Z37.0 Single live birth; O36.5930 Maternal care for other known or suspected poor fetal growth, third trimester, not applicable or unspecified; O99.824 Streptococcus B carrier state complicating childbirth; O70.0 First degree perineal laceration during delivery; O32.6XX0 Maternal care for compound presentation, not applicable or unspecified; O99.353 Diseases of the nervous system complicating pregnancy, third trimester; G43.909 Migraine, unspecified, not intractable, without status migrainosus; Z20.822 Contact with and (suspected) exposure to COVID-19; Z3A.37 37 weeks gestation of pregnancy; Z87.891 Personal history of nicotine dependence
CPT/HCPCS: 59025; 80053; 82570; 84156; 84550; 85025; 86850; 86900; 86901; 87635; 93005; 93971; 99213; A9270; J7120

== ENCOUNTER 2020-12-22 12:15 | Outpatient (CLI) | payer MEDICAID ==
[2020-12-22 12:19] VITALS: BP 146/92
[2020-12-22 12:35] LABS: BASOPHILS # (AUTO) 0.1 10^3/uL (0.0-0.1); BASOPHILS % (AUTO) 0.3 %; EOSINOPHILS # (AUTO) 0.2 10^3/uL (0.0-0.7); HCT - HEMATOCRIT 32.8 % (37.0-47.0); HGB - HEMOGLOBIN 10.4 g/dL (12.0-16.0); LYMPHOCYTES # (AUTO) 1.7 10^3/uL (1.5-3.5); LYMPHOCYTES % (AUTO) 9.7 %; MEAN CORPUSCULAR HEMOGLOBIN 28.8 pg (27.0-31.0); MEAN CORPUSCULAR HGB CONC 31.7 g/dL (32.0-36.0); MEAN CORPUSCULAR VOLUME 90.9 fL (81.0-99.0); MEAN PLATELET VOLUME 10.2 fL (7.9-10.8); MONOCYTES # (AUTO) 1.1 10^3/uL (0.0-1.0); MONOCYTES % (AUTO) 6.6 %; NEUTROPHILS % (AUTO) 80.4 %; NRBC ABSOLUTE COUNT (AUTO) 0.02 x10^3/uL; NUCLEATED RED BLOOD CELLS AUTO 0.1 /100WBC; PLT - PLATELET COUNT 199 10^3/uL (130-450); RED BLOOD COUNT 3.61 10^6/uL (4.20-5.40); RED CELL DISTRIBUTION WIDTH 13.2 % (12.0-15.0); WHITE BLOOD COUNT 17.4 x10^3/uL (4.8-10.8)
[2020-12-22 13:01] LABS: ALBUMIN 3.4 g/dL (3.2-5.5); ALBUMIN/GLOBULIN RATIO 0.8 (1.0-2.2); BILIRUBIN,TOTAL 0.6 mg/dL (0.2-1.0); CALCIUM 9.6 mg/dL (8.5-10.3); CREATININE 0.5 mg/dL (0.4-1.0); POTASSIUM 3.8 mmol/L (3.5-5.0); TOTAL PROTEIN 7.5 g/dL (6.7-8.2)
--- NOTE | 2020-12-22 13:13 | PROVIDER PROGRESS NOTE ---
- HPI Current : Vital Signs Heart Rate 72 12/22/20 12:18 Respiratory Rate 16 12/22/20 12:18 Blood Pressure 146/92 H 12/22/20 12:18 Temperature Heart Rate 72 12/22/20 12:18 Respiratory Rate 16 12/22/20 12:18 Blood Pressure 146/92 H 12/22/20 12:18 O2 Saturation - Procedures Procedure Details: 20 min visit with MD today S: here for baby and weight check. Complains of swollen eyes and feet. Feels more swollen than she did at discharge. When she got home she became overwhelmed with the responsibility of caring for a whole life and by restrictions in her freedom (taking a drive, visiting her mom whenever she wants to). Had a "huge meltdown" and cried a lot. Partner got her into the shower and she felt better. Having a terrible time sleeping due to difficulty. Feeling anxious and like she is having a harder time coping. Has lots of help at home with husb and mother, but feels like she should be the one delivering the care instead of others. No hallucinations, no SI or HI. Having some scotoma which are chronic. Mild SEWELL attrributed to lack of sleep. No other visual changes, no upper abd pain, no other concerns. O: 140's/90s Alert, smiling, cuddling baby, NAD. Normal speech and thought content. Normal grooming Photo reviewed patient with very puffy eyelids--this was after her crying episode. Currently no periorbital edema. 1+ LE edema bilaterally, symmetric. No erythema or warmth. Normal CBC and CMP. A/P: 20yo P1 PPD#3 s/p induced delivery at term due to preeclampsia without severe features. Now with lower extremity edema which is normal for this phase of her recovery--no evidence of worsening preeclampsia or of VTE. Also with chronic generalized anxiety disorder undergoing current flare due to status, family changes, and sleep deprivation. Has not started her zoloft yet--encouraged to. Discussed coping techniques and warning signs. Has FUV next week in clinic. challenges with her SGA baby--working with RN today, I reviewed that bottle feeding is absolutely OK especially if needed to maintain mental health--she is very dedicated to .
--- NOTE | 2020-12-22 14:22 | Labor Flowsheet ---
Labor Flowsheet Datetime Report Generated by CPN: 12/22/2020 14:21 Datetime: 12/21/2020 07:57 VITAL SIGNS NBP Sys/Lanny/Mean (mmHg): 120 : 67 : 80 Pulse: 82 Datetime: 12/20/2020 23:55 SpO2 (%): 98 Datetime: 12/19/2020 14:00 Stage of : Recovery Respirations: 16 Temperature (C): 36.7 Temperature Route: Oral Datetime: 12/19/2020 11:55 UTERINE ACTIVITY Monitor Mode: External Frequency (min): 2-3 Quality: Strong Duration (sec): 60-90 Pattern: Normal: <= 5 Contractions in 10 Minutes Resting Tone (Palpate): Relaxed Comments: 130s, with decels while pushing, last one down to the 80-90s. pt delivered at 1155 Datetime: 12/19/2020 11:50 LaborFlag: Labor Datetime: 12/19/2020 11:45 Contraction Comments: pushing Datetime: 12/19/2020 11:43 Pushing Position: Pushing with Contractions Pushing Progress: Descent with Pushing Datetime: 12/19/2020 11:33 STAGE 2 Pushing: Urge to Push Datetime: 12/19/2020 11:32 COMMUNICATION Communication: Provider at Bedside Communication Comments: giem Datetime: 12/19/2020 11:30 ASSESSMENT A Monitor Mode: Telemetry FHR Baseline Rate : 135 FHR Baseline Changes: No Baseline Change Variability: Moderate 6-25 bpm Accelerations: 15X15 Category: Category I Oxygen Method: Room Air Datetime: 12/19/2020 11:23 VAGINAL EXAM Dilatation (cm): 10.0 Effacement (%): 100 Station: 1 Exam by: dr giem Cervix, Position: Anterior Datetime: 12/19/2020 11:20 I/O Interventions: Oleary Cath Inserted Datetime: 12/19/2020 11:15 Decelerations: None Datetime: 12/19/2020 10:45 Anesthesia Level Check: T10- Umbilicus Datetime: 12/19/2020 10:41 Antibiotics: Ampicillin IV 1 Gm Datetime: 12/19/2020 10:29 Vaginal Bleeding: Normal Show Cervix, Consistency: Soft Datetime: 12/19/2020 10:20 Patient Position/Activity: Right Tilt Datetime: 12/19/2020 10:15 PAIN Pain Scale: 9 Pain Coping: Sleeping; Crying MEDICATIONS Pitocin (milliunits): Decreased to @ 6 Epidural Procedure: Loading Dose Datetime: 12/19/2020 10:10 PATIENT CARE IV/Blood Work: IV Bolus Started Datetime: 12/19/2020 10:05 PROCEDURE TIME OUT Procedure Verify: Correct Patient Identity; Correct Side and Site are Marked; Accurate Procedure Co nsent Form; Agreement on Procedure to be Done; Correct Patient Position; Addressed Need to Administer Antibiotics or Fluids for Irrigation; Safety Precautions Based on Patient History or Medication Use ANESTHESIA Anesthesia Plans: Epidural Epidural Positioning: Sitting Datetime: 12/19/2020 09:46 Amniotic Fluid Color: Clear Amniotic Fluid Amount: Moderate Membrane Comments: will confirm with rom+ when order is recieved Notification Reason: Labor Status; Pain Datetime: 12/19/2020 09:19 Monitor Interventions for UA: [place] Adjusted Datetime: 12/19/2020 08:14 Monitor Interventions for FHR: Ultrasound Adjusted Datetime: 12/19/2020 07:43 Provider Notified (Name): dr giem will be in surgery, ok for pt to have epidural when requested, pe r dr geim will not go up on pitocin until Dr Giem is finished in OR. Datetime: 12/19/2020 06:49 Hygiene: Oral Care; Carito Care; Complete Bath Datetime: 12/19/2020 06:32 Patient Care Comments: pt getting into tub with assistance from partner Teaching Comments: tub safety, verbalizes understanding Datetime: 12/19/2020 06:02 Pain Presence: Intermittent Pain Type: Contraction; Pressure Pain Location: Abdomen; Back Pain Relief Measures: Comfort Measures Pain Assessment Comments: pt coping well, partner involved Comfort Measures: Breathing/Relaxation; Coaching; Back Rub Given; Family Support Datetime: 12/19/2020 03:30 MATERNAL ASSESSMENT Level of Consciousness: Alert DTR's/Clonus: DTRs 2+ Headache: Denies Nausea/Vomiting: Denies RUQ Epigastric Pain: Denies Datetime: 12/19/2020 02:28 TEACHING Instructional Method: Verbal; Verbalized Understanding Datetime: 12/18/2020 22:15 Medication Comments: pitocin verified by lapeler Medications: Antibiotics; Pitocin Datetime: 12/18/2020 22:10 Pitocin Checklist: At Least 1 Acceleration of 15 bpm x 15 Seconds in 30 Minutes or Adequate Variabi lity; No More than 1 Late Deceleration Occurred in Past 30 Minutes; No More than 2 Variable Decelerat ions > 60 Seconds in Duration and decreasing >60 bpm in 30 minutes; No More than 5 Uterine Contractio ns in 10 Minutes for any 20 Minute Interval; Uterus Palpates Soft between Contractions Datetime: 12/18/2020 21:46 Procedures: Sterile Vag Exam Datetime: 12/18/2020 19:32 Anesthesia Comments: MARINE HABITAT RESOURCE SPECIALIST at bedside obtaining informed consent Datetime: 12/18/2020 19:27 Plan of Care: Plan of Care Discussed; Vaginal Delivery; Induction Unit Routine: Call Claudio; Photography; Monitoring; Safety/Fall Risk Prevention; Bathroom Privi leges; Medications Labor/Induction: Labor Stages; Induction; Tachysystole Interventions; Interventions; Activity Pain Management: Epidural; Pain Scale/Goals; Comfort Measures Datetime: 12/18/2020 19:13 Breath Sounds, Left: Clear and Equal Breath Sounds, Right: Clear and Equal Datetime: 12/18/2020 17:48 Cervical Ripening Agents: Cytotec @
== END 2020-12-22 14:05 | disposition home or self-care (01) ==
LOC: WFO 12:15 → FBP 12:17 → WFO 14:05
PROVIDERS: ATTEND Obstetrics & Gynecology
DX: O99.345 Other mental disorders complicating the puerperium (principal); F41.9 Anxiety disorder, unspecified; O90.89 Other complications of the puerperium, not elsewhere classified; Z72.820 Sleep deprivation
CPT/HCPCS: 36415; 80053; 85025

== ENCOUNTER 2020-12-23 11:20 | Outpatient (CLI) | payer MEDICAID ==
--- NOTE | 2020-12-23 12:56 | PROVIDER PROGRESS NOTE ---
- Plan Plan: S: =developed fever after weight check yesterday. Up to 101 degrees, was indolent yesterday, improved with tylenol. Had eye aching, fatigue, and myalgia. No SEWELL, breast erythema, dysuria, increased abd pain, or increased perineal pain. Breast milk came in at the same time as the fever started. O: AVSS, Temp normal Alert, cuddling baby, NAD Breasts soft and symmetric, subtle erythema left breast inner lower quadrant without warmth or well-circumscribed area. Bra is tight. Fundus nontender at 14w size No LE edema UA pending 20yo PPD # 4 s/p induced vaginal delivery at term for preeclampsia here with hx of fever likely due to breast engorgement. Fever started with her milk coming in. Very mild erythema present, pt will call PRN worsening and we could start abx PRN. No evidence of endomyometritis, mastitis, or wound infection. Will check UA though she is asymptomatic. No current symptoms or fevers. Call PRN further problems. Seen by , 20min of time.
[2020-12-23 13:02] LABS: BILIRUBIN,URINE NEGATIVE (NEGATIVE); GLUCOSE, URINE (UA) NEGATIVE (NEGATIVE); KETONES,URINE (UA) NEGATIVE (NEGATIVE); LEUKOCYTE ESTERASE, URINE NEGATIVE (NEGATIVE); NITRITE,URINE NEGATIVE (NEGATIVE); OCCULT BLOOD,URINE SMALL (NEGATIVE); PROTEIN,URINE NEGATIVE (NEGATIVE); UROBILINOGEN,URINE 0.2 (NORMAL) E.U./dL (NORMAL)
[2020-12-23 13:03] LABS: CLARITY,URINE CLEAR (CLEAR)
[2020-12-23 13:11] LABS: BACTERIA,URINE Few /HPF (None Seen); RBC,URINE 0-5 /HPF (0-5); SQUAMOUS EPITHELIAL CELL,UR FEW Squamous (<= Few); WBC,URINE 0-3 /HPF (0-5)
[2020-12-23 14:11] VITALS: BP 123/80
--- NOTE | 2020-12-23 14:43 | Labor Flowsheet ---
Labor Flowsheet Datetime Report Generated by CPN: 12/23/2020 14:43 Datetime: 12/21/2020 07:57 VITAL SIGNS NBP Sys/Lanny/Mean (mmHg): 120 : 67 : 80 Pulse: 82 Datetime: 12/20/2020 23:55 SpO2 (%): 98 Datetime: 12/19/2020 14:00 Stage of : Recovery Respirations: 16 Temperature (C): 36.7 Temperature Route: Oral Datetime: 12/19/2020 11:55 UTERINE ACTIVITY Monitor Mode: External Frequency (min): 2-3 Quality: Strong Duration (sec): 60-90 Pattern: Normal: <= 5 Contractions in 10 Minutes Resting Tone (Palpate): Relaxed Comments: 130s, with decels while pushing, last one down to the 80-90s. pt delivered at 1155 Datetime: 12/19/2020 11:50 LaborFlag: Labor Datetime: 12/19/2020 11:45 Contraction Comments: pushing Datetime: 12/19/2020 11:43 Pushing Position: Pushing with Contractions Pushing Progress: Descent with Pushing Datetime: 12/19/2020 11:33 STAGE 2 Pushing: Urge to Push Datetime: 12/19/2020 11:32 COMMUNICATION Communication: Provider at Bedside Communication Comments: giem Datetime: 12/19/2020 11:30 ASSESSMENT A Monitor Mode: Telemetry FHR Baseline Rate : 135 FHR Baseline Changes: No Baseline Change Variability: Moderate 6-25 bpm Accelerations: 15X15 Category: Category I Oxygen Method: Room Air Datetime: 12/19/2020 11:23 VAGINAL EXAM Dilatation (cm): 10.0 Effacement (%): 100 Station: 1 Exam by: dr giem Cervix, Position: Anterior Datetime: 12/19/2020 11:20 I/O Interventions: Oleary Cath Inserted Datetime: 12/19/2020 11:15 Decelerations: None Datetime: 12/19/2020 10:45 Anesthesia Level Check: T10- Umbilicus Datetime: 12/19/2020 10:41 Antibiotics: Ampicillin IV 1 Gm Datetime: 12/19/2020 10:29 Vaginal Bleeding: Normal Show Cervix, Consistency: Soft Datetime: 12/19/2020 10:20 Patient Position/Activity: Right Tilt Datetime: 12/19/2020 10:15 PAIN Pain Scale: 9 Pain Coping: Sleeping; Crying MEDICATIONS Pitocin (milliunits): Decreased to @ 6 Epidural Procedure: Loading Dose Datetime: 12/19/2020 10:10 PATIENT CARE IV/Blood Work: IV Bolus Started Datetime: 12/19/2020 10:05 PROCEDURE TIME OUT Procedure Verify: Correct Patient Identity; Correct Side and Site are Marked; Accurate Procedure Co nsent Form; Agreement on Procedure to be Done; Correct Patient Position; Addressed Need to Administer Antibiotics or Fluids for Irrigation; Safety Precautions Based on Patient History or Medication Use ANESTHESIA Anesthesia Plans: Epidural Epidural Positioning: Sitting Datetime: 12/19/2020 09:46 Amniotic Fluid Color: Clear Amniotic Fluid Amount: Moderate Membrane Comments: will confirm with rom+ when order is recieved Notification Reason: Labor Status; Pain Datetime: 12/19/2020 09:19 Monitor Interventions for UA: [place] Adjusted Datetime: 12/19/2020 08:14 Monitor Interventions for FHR: Ultrasound Adjusted Datetime: 12/19/2020 07:43 Provider Notified (Name): dr giem will be in surgery, ok for pt to have epidural when requested, pe r dr geim will not go up on pitocin until Dr Giem is finished in OR. Datetime: 12/19/2020 06:49 Hygiene: Oral Care; Carito Care; Complete Bath Datetime: 12/19/2020 06:32 Patient Care Comments: pt getting into tub with assistance from partner Teaching Comments: tub safety, verbalizes understanding Datetime: 12/19/2020 06:02 Pain Presence: Intermittent Pain Type: Contraction; Pressure Pain Location: Abdomen; Back Pain Relief Measures: Comfort Measures Pain Assessment Comments: pt coping well, partner involved Comfort Measures: Breathing/Relaxation; Coaching; Back Rub Given; Family Support Datetime: 12/19/2020 03:30 MATERNAL ASSESSMENT Level of Consciousness: Alert DTR's/Clonus: DTRs 2+ Headache: Denies Nausea/Vomiting: Denies RUQ Epigastric Pain: Denies Datetime: 12/19/2020 02:28 TEACHING Instructional Method: Verbal; Verbalized Understanding Datetime: 12/18/2020 22:15 Medication Comments: pitocin verified by control system manager Medications: Antibiotics; Pitocin Datetime: 12/18/2020 22:10 Pitocin Checklist: At Least 1 Acceleration of 15 bpm x 15 Seconds in 30 Minutes or Adequate Variabi lity; No More than 1 Late Deceleration Occurred in Past 30 Minutes; No More than 2 Variable Decelerat ions > 60 Seconds in Duration and decreasing >60 bpm in 30 minutes; No More than 5 Uterine Contractio ns in 10 Minutes for any 20 Minute Interval; Uterus Palpates Soft between Contractions Datetime: 12/18/2020 21:46 Procedures: Sterile Vag Exam Datetime: 12/18/2020 19:32 Anesthesia Comments: STONE POLISHER at bedside obtaining informed consent Datetime: 12/18/2020 19:27 Plan of Care: Plan of Care Discussed; Vaginal Delivery; Induction Unit Routine: Call Claudio; Photography; Monitoring; Safety/Fall Risk Prevention; Bathroom Privi leges; Medications Labor/Induction: Labor Stages; Induction; Tachysystole Interventions; Interventions; Activity Pain Management: Epidural; Pain Scale/Goals; Comfort Measures Datetime: 12/18/2020 19:13 Breath Sounds, Left: Clear and Equal Breath Sounds, Right: Clear and Equal Datetime: 12/18/2020 17:48 Cervical Ripening Agents: Cytotec @
== END 2020-12-23 12:55 | disposition home or self-care (01) ==
LOC: WFO 11:20 → FBP 11:27 → WFO 12:55
PROVIDERS: ATTEND Obstetrics & Gynecology
DX: O86.4 Pyrexia of unknown origin following delivery (principal)
CPT/HCPCS: 81001; 87086; 99211

== ENCOUNTER 2021-01-08 08:00 | Outpatient (CLI) | payer MEDICAID ==
[2021-01-21 10:53] LABS: BILIRUBIN,URINE NEGATIVE (NEGATIVE); CLARITY,URINE CLEAR (CLEAR); GLUCOSE, URINE (UA) NEGATIVE (NEGATIVE); KETONES,URINE (UA) NEGATIVE (NEGATIVE); LEUKOCYTE ESTERASE, URINE NEGATIVE (NEGATIVE); NITRITE,URINE NEGATIVE (NEGATIVE); OCCULT BLOOD,URINE NEGATIVE (NEGATIVE); PROTEIN,URINE NEGATIVE (NEGATIVE); RBC,URINE 0-5 /HPF (0-5); UROBILINOGEN,URINE 0.2 (NORMAL) E.U./dL (NORMAL); WBC,URINE 0-3 /HPF (0-5)
[2021-01-21 10:54] LABS: BACTERIA,URINE None Seen /HPF (None Seen); BACTERIAL VAGINOSIS DNA NEGATIVE (NEGATIVE); CANDIDA GLABRATA DNA NEGATIVE (NEGATIVE); CANDIDA GROUP DNA NEGATIVE (NEGATIVE); CANDIDA KRUSEI DNA NEGATIVE (NEGATIVE); SQUAMOUS EPITHELIAL CELL,UR RARE Squamous (<= Few); TRICHOMONAS VAGINALIS DNA NEGATIVE (NEGATIVE)
== END 2021-01-08 23:59 | disposition home or self-care (01) ==
LOC: LAB.R 08:00
PROVIDERS: ATTEND Obstetrics & Gynecology
DX: O86.4 Pyrexia of unknown origin following delivery (principal); R30.0 Dysuria; N89.8 Other specified noninflammatory disorders of vagina
CPT/HCPCS: 81001; 87070; 87077; 87086; 87205; 87661; 87801

== ENCOUNTER 2021-05-06 08:00 | Outpatient (CLI) | payer MEDICAID ==
[2021-05-06 16:44] LABS: BILIRUBIN,URINE NEGATIVE (NEGATIVE); GLUCOSE, URINE (UA) NEGATIVE (NEGATIVE); KETONES,URINE (UA) NEGATIVE (NEGATIVE); LEUKOCYTE ESTERASE, URINE NEGATIVE (NEGATIVE); NITRITE,URINE NEGATIVE (NEGATIVE); OCCULT BLOOD,URINE NEGATIVE (NEGATIVE); PH,URINE 5.5 PH (5.0-7.5); PROTEIN,URINE NEGATIVE (NEGATIVE); UROBILINOGEN,URINE 0.2 (NORMAL) E.U./dL (NORMAL)
[2021-05-06 16:56] LABS: BACTERIA,URINE Rare /HPF (None Seen); CLARITY,URINE CLEAR (CLEAR); MUCUS,URINE Few Strands; RBC,URINE 0-5 /HPF (0-5); SQUAMOUS EPITHELIAL CELL,UR FEW Squamous (<= Few); WBC,URINE 0-3 /HPF (0-5)
== END 2021-05-06 23:59 | disposition home or self-care (01) ==
LOC: LAB.WC 08:00
PROVIDERS: ATTEND Nurse Practitioner Obstetrics & Gynecology
DX: Z32.01 Encounter for pregnancy test, result positive (principal)
CPT/HCPCS: 81001; 87086

== ENCOUNTER 2021-05-07 07:13 | Outpatient (CLI) | payer MEDICAID | END 2021-05-07 07:14 | disposition home or self-care (01) | LOC: LAB 07:13 | PROVIDERS: ATTEND Nurse Practitioner Obstetrics & Gynecology | DX: Z36.89 Encounter for other specified antenatal screening (principal) | CPT/HCPCS: 81220; 81243; 81329; 81599 ==

== ENCOUNTER 2021-05-09 14:23 | Outpatient (CLI) | payer MEDICAID ==
--- NOTE | 2021-05-10 16:17 | Ultrasound Report ---
PROCEDURE: OB First Trimester w/TV INDICATIONS: POSITIVE TEST OUTSIDE/PRIOR DATING DATA: Last menstrual period (LMP): 03/08/2021. LMP-based estimated date of delivery (BRANDIE): 12/13/2021. First dating scan (date and location): 05/09/2021, this study. Estimated date of delivery (BRANDIE) from first dating scan: A viable intrauterine gestation has not yet been established.. TECHNIQUE: Real-time scanning was performed of the fetus and maternal pelvic organs, with image documentation. Endovaginal scanning was also performed to better visualize the fetus and maternal ovaries. COMPARISON: None. FINDINGS: Embryo: None yet visualized. There is a presumed gestational sac within the endometrial space that h as a mean sac diameter of 8 mm and which correlates with a gestational age of approximately 5 weeks 4 days, +/- 17 days, assuming presence of viable gestation. Heart rate: Not yet seen. Measurement variability in dating: +/- 4 weeks by LMP, +/- 7 days by mean sac diameter (use before 6 weeks gestation if crown-rump length not able to be measured), +/- 5 days by crown-rump length (6-12 weeks gestation). Maternal organs: Ovaries normal considering presumed gestational status.. IMPRESSION: The saclike structure within the endometrial canal likely represents an intrauterine gestational sac, but a viable gestation has not yet been established. Follow-up in 7-10 days by ultrasound is recomme nded and follow-up by quantitative beta hCG over time also may be warranted. Reviewed by: Darci Linn MD on 05/10/2021 4:16 PM PDT Approved by: Darci Linn MD on 05/10/2021 4:16 PM PDT Station ID: [id number]
== END 2021-05-09 14:24 | disposition home or self-care (01) ==
LOC: DI 14:23
PROVIDERS: ATTEND Nurse Practitioner Obstetrics & Gynecology
DX: Z32.01 Encounter for pregnancy test, result positive (principal)

== ENCOUNTER 2021-05-14 19:36 | Outpatient (CLI) | payer MEDICAID | END 2021-05-14 19:37 | disposition home or self-care (01) | LOC: LAB 19:36 | PROVIDERS: ATTEND Nurse Practitioner Obstetrics & Gynecology | DX: Z32.01 Encounter for pregnancy test, result positive (principal) | CPT/HCPCS: 36415; 84702 ==

== ENCOUNTER 2021-05-17 08:00 | Outpatient (CLI) | payer MEDICAID | END 2021-05-17 08:01 | disposition home or self-care (01) | LOC: LAB.S 08:00 | PROVIDERS: ATTEND Nurse Practitioner Obstetrics & Gynecology | DX: Z32.01 Encounter for pregnancy test, result positive (principal) | CPT/HCPCS: 36415; 84702 ==

== ENCOUNTER 2021-05-20 15:01 | Outpatient (CLI) | payer MEDICAID | END 2021-05-20 15:02 | disposition home or self-care (01) | LOC: LAB.S 15:01 | PROVIDERS: ATTEND Nurse Practitioner Obstetrics & Gynecology | DX: Z32.01 Encounter for pregnancy test, result positive (principal) | CPT/HCPCS: 36415; 84702 ==

== ENCOUNTER 2021-05-21 20:56 | Outpatient (CLI) | payer MEDICAID ==
--- NOTE | 2021-05-22 10:49 | Ultrasound Report ---
PROCEDURE: OB First Trimester w/TV INDICATIONS: OUTSIDE/PRIOR DATING DATA: Last menstrual period (LMP): 03/08/2021. LMP-based estimated date of delivery (BRANDIE): 12/13/2021. First dating scan (date and location): 05/21/2021. Estimated date of delivery (BRANDIE) from first dating scan: 01/06/2022. The below data below was generated using the ultrasound generated BRANDIE of 01/06/2022 TECHNIQUE: Real-time scanning was performed of the fetus and maternal pelvic organs, with image documentation. Endovaginal scanning was also performed to better visualize the fetus and maternal ovaries. COMPARISON: 05/09/2021 FINDINGS: Embryo: Mean gestational sac diameter is 2.4 cm. [place]-rump length is 1.0 cm. Estimated ultrasound a ge is 7 weeks 1 day. Heart rate: heart rate is 143 bpm. Measurement variability in dating: +/- 4 weeks by LMP, +/- 7 days by mean sac diameter (use before 6 weeks gestation if crown-rump length not able to be measured), +/- 5 days by crown-rump length (6-12 weeks gestation). Maternal organs: Ovaries within normal limits; left corpus luteum cyst noted. IMPRESSION: Single live intrauterine gestation with estimated ultrasound age of 7 weeks 1 day. Reviewed by: Salazar Wyatt MD on 05/22/2021 10:47 AM PDT Approved by: Salazar Wyatt MD on 05/22/2021 10:47 AM PDT Station ID: [id number]
== END 2021-05-21 20:57 | disposition home or self-care (01) ==
LOC: DI 20:56
PROVIDERS: ATTEND Nurse Practitioner Obstetrics & Gynecology
DX: Z36.89 Encounter for other specified antenatal screening (principal); Z32.01 Encounter for pregnancy test, result positive

== ENCOUNTER 2021-06-02 14:54 | Emergency (ER) | payer MEDICAID ==
[2021-06-02 15:46] LABS: BASOPHILS % (AUTO) 0.3 %; EOSINOPHILS % (AUTO) 0.4 %; HGB - HEMOGLOBIN 12.6 g/dL (12.0-16.0); LYMPHOCYTES # (AUTO) 1.5 10^3/uL (1.5-3.5); LYMPHOCYTES % (AUTO) 21.7 %; MEAN CORPUSCULAR HEMOGLOBIN 28.2 pg (27.0-31.0); MEAN CORPUSCULAR HGB CONC 33.2 g/dL (32.0-36.0); MEAN PLATELET VOLUME 11.1 fL (7.9-10.8); MONOCYTES # (AUTO) 0.7 10^3/uL (0.0-1.0); MONOCYTES % (AUTO) 10.5 %; NEUTROPHILS # (AUTO) 4.6 10^3/uL (1.5-6.6); NEUTROPHILS % (AUTO) 66.7 %; PLT - PLATELET COUNT 205 10^3/uL (130-450); RED BLOOD COUNT 4.47 10^6/uL (4.20-5.40); RED CELL DISTRIBUTION WIDTH 13.2 % (12.0-15.0); WHITE BLOOD COUNT 6.9 x10^3/uL (4.8-10.8)
[2021-06-02 16:01] LABS: ALBUMIN 4.7 g/dL (3.2-5.5); ALBUMIN/GLOBULIN RATIO 1.4 (1.0-2.2); BILIRUBIN,TOTAL 1.1 mg/dL (0.2-1.0); CREATININE 0.6 mg/dL (0.4-1.0); POTASSIUM 3.7 mmol/L (3.5-5.0)
[2021-06-02] MEDS ORDERED: SODIUM CHLORIDE 0.9% 1,000 ML IV STA (16:23)
[2021-06-02] MEDS ORDERED: BUTALB/ACETAM/CAFF 50/325/40MG TABLET PO STA (16:23)
[2021-06-02 16:39] LABS: BILIRUBIN,URINE NEGATIVE (NEGATIVE); GLUCOSE, URINE (UA) NEGATIVE (NEGATIVE); KETONES,URINE (UA) NEGATIVE (NEGATIVE); LEUKOCYTE ESTERASE, URINE NEGATIVE (NEGATIVE); NITRITE,URINE NEGATIVE (NEGATIVE); OCCULT BLOOD,URINE NEGATIVE (NEGATIVE); PH,URINE 6.5 PH (5.0-7.5); PROTEIN,URINE NEGATIVE (NEGATIVE); UROBILINOGEN,URINE 0.2 (NORMAL) E.U./dL (NORMAL)
[2021-06-02 16:41] LABS: CLARITY,URINE CLEAR (CLEAR)
--- NOTE | 2021-06-02 16:50 | ED Physician Documentation ---
History of Present Illness - Stated complaint Stated Complaint: LT ARM/MOUTH NUMB,SEWELL - Chief complaint Chief Complaint: General - History obtained from History obtained from: Patient - History of Present Illness Pain level max: 6 Pain level now: 5 - Additonal information Additional information: Patient is a 21-year-old female, 2 para 1, approximately 9 weeks . She has had a headache for the past 3 days. States feels similar to her typical migraine. Occasionally has numbness to the left side of the face and numbness/tingling down the left shoulder. No chest pain. No shortness of breath. Has had some right upper quadrant abdominal pain as well. No history of biliary disease that she is aware of. No vaginal bleeding or discharge. No lower abdominal pain or pelvic cramping. No fevers. No chills. No recent illnesses. Took Tylenol for the headache without relief. Has had some nausea and vomiting as well. 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 Psych: Depression, Anxiety - Past Surgical History Past Surgical History: Yes - Present Medications Home Medications: Ambulatory Orders Medication Instructions Recorded Confirmed SUMAtriptan [Imitrex] 25 mg PO BID PRN #10 tablet 06/15/19 Butalb/Acetaminophen/Caffeine 1 cap PO Q6H PRN #10 cap 06/02/21 [Fioricet 50-300-40 mg Capsule] Ondansetron Odt [Zofran] 4 mg TL Q6H PRN #10 tablet 06/02/21 - Allergies Allergies/Adverse Reactions: Allergies Allergy/AdvReac Type Severity Reaction Status Date / Time cetirizine HCl * Allergy Itching Verified 06/25/20 23:33 [From [facility] [[email or web address] - Social History Does the pt smoke?: No Smoking Status: Former smoker Does the pt drink ETOH?: No Does the pt have substance abuse?: Yes - Immunizations Immunizations are current?: Yes - POLST Patient has POLST: No PD ED PE NORMAL - Vitals Vital signs reviewed: Yes - General General: Alert and oriented X 3, No acute distress, Well developed/nourished - HEENT HEENT: PERRL, Moist mucous membranes - Neck Neck: Supple, no meningeal sign - Cardiac Cardiac: RRR, Strong equal pulses - Respiratory Respiratory: No respiratory distress, Clear bilaterally - Abdomen Abdomen: Soft, Non tender, Non distended - Back Back: No CVA TTP, No spinal TTP - Derm Derm: Warm and dry - Extremities Extremities: No edema, No calf tenderness / cord - Neuro Neuro: Alert and oriented X 3, fisher hoop net 2-12 intact, No motor deficit, No sensory deficit, Normal speech Eye Opening: Spontaneous Motor: Obeys Commands Verbal: Oriented GCS Score: 15 - Psych Psych: Normal mood, Normal affect Results - Vitals Vitals: Vital Signs - 24 hr 06/02/21 06/02/21 06/02/21 15:13 15:16 17:35 Temperature 36.7 C 36.7 C 36.7 C Heart Rate 97 97 68 Respiratory 16 16 16 Rate Blood Pressure 132/81 H 132/81 H 109/76 O2 Saturation 98 98 100 Oxygen O2 Source Room air - Labs Labs: Laboratory Tests 06/02/21 06/02/21 06/02/21 15:37 15:37 16:30 WBC 6.9 RBC 4.47 Hgb 12.6 Hct 38.0 MCV 85.0 MCH 28.2 MCHC 33.2 RDW 13.2 Plt Count 205 MPV 11.1 H Neut # (Auto) 4.6 Lymph # (Auto) 1.5 [place] # (Auto) 0.7 Eos # (Auto) 0.0 Baso # (Auto) 0.0 Absolute Nucleated RBC 0.00 Nucleated RBC % 0.0 Sodium 137 Potassium 3.7 Chloride 104 Carbon Dioxide 21 Anion Gap 12.0 BUN 8 Creatinine 0.6 Estimated GFR (MDRD) 125 Glucose 85 Calcium 10.0 Total Bilirubin 1.1 H AST 31 ALT 31 Alkaline Phosphatase 68 Total Protein 8.0 Albumin 4.7 Globulin 3.3 Albumin/Globulin Ratio 1.4 Lipase 30 Urine Color YELLOW Urine Clarity CLEAR Urine pH 6.5 Ur Specific [place] 1.010 Urine Protein NEGATIVE Urine Glucose (UA) NEGATIVE Urine Ketones NEGATIVE Urine Occult Blood NEGATIVE Urine Nitrite NEGATIVE Urine Bilirubin NEGATIVE Urine Urobilinogen 0.2 (NORMAL) Ur Leukocyte Esterase NEGATIVE Ur Microscopic Review NOT INDICATED Urine Culture Comments NOT INDICATED - Rads (name of study) RUQ Radiology: Final report received, EMP read contemporaneously, See rad report PD MEDICAL DECISION MAKING - ED course Complexity details: reviewed results, re-evaluated patient, considered differential, d/w patient ED course: Headache and neurological symptoms resolved with Fioricet. No acute findings on ultrasound of the right upper quadrant other than a prominent right renal pelvis. We will have her follow-up with her OB for further evaluation of this. Patient is well-appearing, nontoxic. Afebrile. No significant lab abnormalities. Patient counseled regarding signs and symptoms for which I believe and urgent re-evaluation would be necessary. Patient with good understanding of and agreement to plan and is comfortable going home at this time This document was made in part using voice recognition software. While efforts are made to proofread this document, sound alike and grammatical errors may occur. Ultrasound Results: The gallbladder demonstrates a normal sonographic appearance. No biliary dilatation is seen. There is a prominent right renal pelvis. Given the fact that this has developed since 2017, this is attributed to collecting system dilatation, potentially related to obstruction. If clinically appropriate, please consider a follow-up CT. Fatty liver infiltration Departure - Departure Disposition: Home, Self Care Clinical Impression: Abdominal pain affecting Migraine Qualifiers: Migraine type: unspecified Status migrainosus presence: without status migrainosus Intractability: not intractable Qualified Code(s): G43.909 - Migraine, unspecified, not intractable, without status migrainosus Qualifiers: Weeks of gestation: 9 weeks Qualified Code(s): Z3A.09 - 9 weeks gestation of Condition: Good Instructions: ED Abdominal Pain Unkn Cause, ED Headache Migraine Follow-Up: your,doctor in 1 week [Other] Prescriptions: Butalb/Acetaminophen/Caffeine [Fioricet 50-300-40 mg Capsule] 1 cap PO Q6H PRN #10 cap PRN Reason: headache Ondansetron Odt [Zofran] 4 mg TL Q6H PRN #10 tablet PRN Reason: Nausea / Vomiting Comments: Please follow-up with your doctor for further care. Will prescribe Fioricet for home. You should have a follow-up ultrasound of your right renal pelvis as there is some dilation. We would like to avoid a CT scan while you are . Return if you worsen. Ultrasound Results: The gallbladder demonstrates a normal sonographic appearance. No biliary dilatation is seen. There is a prominent right renal pelvis. Given the fact that this has developed since 2017, this is attributed to collecting system dilatation, potentially related to obstruction. If clinically appropriate, please consider a follow-up CT. Fatty liver infiltration Discharge Date/Time: 06/02/21 18:20
--- NOTE | 2021-06-02 17:30 | Ultrasound Report ---
PROCEDURE: Abdomen Limited INDICATIONS: RUQ abd pain TECHNIQUE: Real-time focused scanning was performed of the abdomen, with image documentation. COMPARISON: 12/26/2016 FINDINGS: The liver demonstrates normal size. The liver demonstrates moderately increased echogeni city, which limits ultrasound sensitivity for detection of masses. No gallstones or sludge can be seen. The gallbladder wall does not appear thickened. There is no spec ific pericholecystic fluid. The sonographic Day's sign is negative. No biliary ductal dilatation is seen. The common bile duct measures 3 mm. The visualized pancreas is within normal limits. The right kidney demonstrates normal size. There is a prominent renal pelvis. This patient is , with measured cardiac activity of 169 bpm. IMPRESSION: The gallbladder demonstrates a normal sonographic appearance. No biliary dilatation is seen. There is a prominent right renal pelvis. Given the fact that this has developed since 2017, this is a ttributed to collecting system dilatation, potentially related to obstruction. If clinically appropri ate, please consider a follow-up CT. Fatty liver infiltration Reviewed by: Duran Schmid MD on 06/02/2021 4:29 PM EMILI Approved by: Duran Schmid MD on 06/02/2021 4:29 PM EMILI Station ID: [id number]
[2021-06-02 17:36] VITALS: BP 109/76
== END 2021-06-02 18:20 | disposition home or self-care (01) ==
LOC: ED 14:54
DX: O99.351 Diseases of the nervous system complicating pregnancy, first trimester (principal); G43.909 Migraine, unspecified, not intractable, without status migrainosus; O99.891 Other specified diseases and conditions complicating pregnancy; R93.89 Abnormal findings on diagnostic imaging of other specified body structures; Z87.891 Personal history of nicotine dependence; Z3A.09 9 weeks gestation of pregnancy
CPT/HCPCS: 36415; 76705; 80053; 81003; 83690; 85025; 99284; A9270; 81001; 87086

== ENCOUNTER 2021-07-03 08:00 | Outpatient (CLI) | payer MEDICAID ==
[2021-07-04 20:28] LABS: BACTERIAL VAGINOSIS DNA NEGATIVE (NEGATIVE); CANDIDA GLABRATA DNA NEGATIVE (NEGATIVE); CANDIDA GROUP DNA POSITIVE (NEGATIVE); CANDIDA KRUSEI DNA NEGATIVE (NEGATIVE); TRICHOMONAS VAGINALIS DNA NEGATIVE (NEGATIVE)
[2021-07-04 21:22] LABS: CHLAMYDIA TRACHOMATIS DNA NEGATIVE (NEGATIVE); NEISSERIA GONORRHOEAE DNA NEGATIVE (NEGATIVE); TRICHOMONAS VAGINALIS DNA NEGATIVE (NEGATIVE)
== END 2021-07-03 23:59 | disposition home or self-care (01) ==
LOC: LAB 08:00
PROVIDERS: ATTEND Obstetrics & Gynecology
DX: O99.891 Other specified diseases and conditions complicating pregnancy (principal); L29.8 Other pruritus
CPT/HCPCS: 87491; 87591; 87661; 87801

== ENCOUNTER 2021-07-23 14:33 | Outpatient (CLI) | payer MEDICAID | END 2021-07-23 14:34 | disposition home or self-care (01) | LOC: LAB 14:33 | PROVIDERS: ATTEND Obstetrics & Gynecology | DX: Z34.80 Encounter for supervision of other normal pregnancy, unspecified trimester (principal); Z36.89 Encounter for other specified antenatal screening | CPT/HCPCS: 36415; 81599; 82105 ==

== ENCOUNTER 2021-08-01 08:00 | Outpatient (CLI) | payer MEDICAID ==
[2021-08-01 18:36] LABS: BILIRUBIN,URINE NEGATIVE (NEGATIVE); GLUCOSE, URINE (UA) NEGATIVE (NEGATIVE); KETONES,URINE (UA) NEGATIVE (NEGATIVE); LEUKOCYTE ESTERASE, URINE NEGATIVE (NEGATIVE); NITRITE,URINE NEGATIVE (NEGATIVE); OCCULT BLOOD,URINE NEGATIVE (NEGATIVE); PH,URINE 7.5 PH (5.0-7.5); PROTEIN,URINE NEGATIVE (NEGATIVE); UROBILINOGEN,URINE 0.2 (NORMAL) E.U./dL (NORMAL)
[2021-08-01 19:12] LABS: BACTERIA,URINE None Seen /HPF (None Seen); CLARITY,URINE CLEAR (CLEAR); RBC,URINE 0-5 /HPF (0-5); SQUAMOUS EPITHELIAL CELL,UR NONE SEEN (<= Few); WBC,URINE 0-3 /HPF (0-5)
[2021-08-01 21:03] LABS: BACTERIAL VAGINOSIS DNA NEGATIVE (NEGATIVE); CANDIDA GLABRATA DNA NEGATIVE (NEGATIVE); CANDIDA GROUP DNA NEGATIVE (NEGATIVE); CANDIDA KRUSEI DNA NEGATIVE (NEGATIVE); TRICHOMONAS VAGINALIS DNA NEGATIVE (NEGATIVE)
[2021-08-01 21:55] LABS: CHLAMYDIA TRACHOMATIS DNA NEGATIVE (NEGATIVE); NEISSERIA GONORRHOEAE DNA NEGATIVE (NEGATIVE); TRICHOMONAS VAGINALIS DNA NEGATIVE (NEGATIVE)
== END 2021-08-01 23:59 | disposition home or self-care (01) ==
LOC: LAB 08:00
PROVIDERS: ATTEND Obstetrics & Gynecology
DX: O62.9 Abnormality of forces of labor, unspecified (principal)
CPT/HCPCS: 36415; 81001; 82731; 87086; 87491; 87591; 87661; 87801

== ENCOUNTER 2021-08-02 15:21 | Outpatient (CLI) | payer MEDICAID ==
--- NOTE | 2021-08-02 17:02 | Ultrasound Report ---
PROCEDURE: OB Transvaginal INDICATIONS: IRREGULAR UTERINE CONTRACTIONS OUTSIDE/PRIOR DATING DATA: Last menstrual period (LMP): 03/08/2021. LMP-based estimated date of delivery (BRANDIE): 12/13/2021. First dating scan (date and location): 05/21/2021. Estimated date of delivery (BRANDIE) from first dating scan: 01/06/2022. The below data below was generated using the ultrasound BRANDIE of 01/06/2022. TECHNIQUE: Real-time scanning was performed of the fetus, with image documentation. Endovaginal scanning: Performed. COMPARISON: OB ultrasound 05/21/2021, 10/22/2020. FINDINGS: A single living intrauterine gestation is present. Presentation: Variable. Placenta: Placental position is posterior, without previa. heart rate: 162 beats per minutes. Maternal cervical canal: 4.6 cm long transvaginally; normal length is 2.5 cm or more. No funneling. Estimated gestational age from initial scan: 17 weeks 4 days. IMPRESSION: 1. [place] living intrauterine at 17 weeks 4 days based on prior ultrasound dating. heart rate 162 bpm. 2. Normal cervical length. No funneling. Reviewed by: Sincere Shaikh MD on 08/02/2021 5:01 PM PDT Approved by: Sincere Shaikh MD on 08/02/2021 5:01 PM PDT Station ID: [id number]
== END 2021-08-02 15:22 | disposition home or self-care (01) ==
LOC: DI 15:21
PROVIDERS: ATTEND Obstetrics & Gynecology
DX: O47.02 False labor before 37 completed weeks of gestation, second trimester (principal); Z3A.17 17 weeks gestation of pregnancy

== ENCOUNTER 2021-08-09 19:55 | Emergency (ER) | payer MEDICAID ==
--- NOTE | 2021-08-09 21:10 | ED Physician Documentation ---
History of Present Illness - Stated complaint Stated Complaint: FEMALE /OB - Chief complaint Chief Complaint: Back Pain - History obtained from History obtained from: Patient - Additonal information Additional information: 21-year-old woman G2, P1 at 18 weeks gestation presents with generalized body aches the past couple days after her "mucous plug" (described as large ball of yellowish/clear mucous material from the vagina) fell out 2 nights ago. Patient feels like she has been either urinating small amounts or leaking fluid intermittently throughout the day when she walks around. Week ago she had some uterine contractions and was examined by Dr. Macias, discharged home. Patient has a history of IUGR and preeclampsia as well as labor in her prior . Denies fevers, uterine contractions, vaginal bleeding, dysuria, hematuria. She was told to come to the hospital to be seen by feather maker. Review of Systems Ten Systems: 10 systems reviewed and negative Constitutional: reports: Myalgias. denies: Fever, Chills : reports: Frequency. 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 Psych: Depression, Anxiety - Past Surgical History Past Surgical History: Yes - Present Medications Home Medications: Ambulatory Orders Medication Instructions Recorded Confirmed SUMAtriptan [Imitrex] 25 mg PO BID PRN #10 tablet 06/15/19 Butalb/Acetaminophen/Caffeine 1 cap PO Q6H PRN #10 cap 06/02/21 [Fioricet 50-300-40 mg Capsule] Ondansetron Odt [Zofran] 4 mg TL Q6H PRN #10 tablet 06/02/21 - Allergies Allergies/Adverse Reactions: Allergies Allergy/AdvReac Type Severity Reaction Status Date / Time cetirizine HCl * Allergy Itching Verified 08/09/21 20:21 [From [facility]] - Social History Does the pt smoke?: No Smoking Status: Never smoker Does the pt drink ETOH?: No Does the pt have substance abuse?: Yes - Immunizations Immunizations are current?: Yes - POLST Patient has POLST: No PD ED PE NORMAL - Vitals Vital signs reviewed: Yes - General General: Alert and oriented X 3, No acute distress, Well developed/nourished - HEENT HEENT: Atraumatic, PERRL, EOMI - Neck Neck: Supple, no meningeal sign - Cardiac Cardiac: RRR - Respiratory Respiratory: No respiratory distress, Clear bilaterally - Abdomen Abdomen: Non tender, Non distended - Back Back: No CVA TTP - Derm Derm: Normal color, Warm and dry - Extremities Extremities: No deformity - Neuro Neuro: Alert and oriented X 3 - Psych Psych: Normal mood, Normal affect Results - Vitals Vitals: Vital Signs - 24 hr 08/09/21 08/09/21 20:18 22:15 Temperature 36.3 C L 36.6 C Heart Rate 94 72 Respiratory 16 14 Rate Blood Pressure 129/75 110/63 O2 Saturation 99 99 Oxygen O2 Source Room air - Labs Labs: Laboratory Tests 08/09/21 08/09/21 21:05 21:20 Urine Color YELLOW Urine Clarity CLEAR Urine pH 6.5 Ur Specific [place] 1.015 Urine Protein NEGATIVE Urine Glucose (UA) NEGATIVE Urine Ketones NEGATIVE Urine Occult Blood NEGATIVE Urine Nitrite NEGATIVE Urine Bilirubin NEGATIVE Urine Urobilinogen 0.2 (NORMAL) Ur Leukocyte Esterase NEGATIVE Urine RBC 0-5 Urine WBC 0-3 Ur Squamous Epith Cells FEW Squamous Urine Bacteria None Seen Urine Culture Comments NOT INDICATED Membranes Rupture NEGATIVE PD MEDICAL DECISION MAKING - ED course ED course: d/w Dr. Donald Root, manager global communications who will see patient and have testing performed on the patient in the ED to evaluate for amniotic fluid vs urinary incontinence. He has low suspicion for labor at this time. FHR within normal limits. Departure - Departure Disposition: 01 Home, Self Care Clinical Impression: Back pain affecting , Urinary incontinence Condition: Good Instructions: ED Bladder Instability Female Comments: You were seen in the emergency department for feather maker evaluation. You are not leaking amniotic fluid according to test. Your urine looks clean. Our monitoring test showed a normal heart rate. Please follow-up with POWER PLANT ENGINEER this week. Return to the emergency department if you have any new or worsening symptoms or other concerns. Discharge Date/Time: 08/09/21 22:17
[2021-08-09 21:19] LABS: BILIRUBIN,URINE NEGATIVE (NEGATIVE); GLUCOSE, URINE (UA) NEGATIVE (NEGATIVE); KETONES,URINE (UA) NEGATIVE (NEGATIVE); LEUKOCYTE ESTERASE, URINE NEGATIVE (NEGATIVE); NITRITE,URINE NEGATIVE (NEGATIVE); OCCULT BLOOD,URINE NEGATIVE (NEGATIVE); PH,URINE 6.5 PH (5.0-7.5); PROTEIN,URINE NEGATIVE (NEGATIVE); UROBILINOGEN,URINE 0.2 (NORMAL) E.U./dL (NORMAL)
[2021-08-09 21:20] LABS: CLARITY,URINE CLEAR (CLEAR)
[2021-08-09 21:32] LABS: BACTERIA,URINE None Seen /HPF (None Seen); RBC,URINE 0-5 /HPF (0-5); SQUAMOUS EPITHELIAL CELL,UR FEW Squamous (<= Few); WBC,URINE 0-3 /HPF (0-5)
--- NOTE | 2021-08-09 21:38 | CONSULTATION NOTE ---
Surgery Consult - Consult Date Consult Date: 08/09/21 - Chief Complaint Chief Complaint: Leaking fluid - Home Meds/Allergies Allergies/Adverse Reactions: Allergies Allergy/AdvReac Type Severity Reaction Status Date / Time cetirizine HCl * Allergy Itching Verified 08/09/21 20:21 [From [facility]] - Vital Signs Vital Signs: Last Vital Signs Temp 97.3 F L 08/09/21 20:18 Pulse 94 08/09/21 20:18 Resp 16 08/09/21 20:18 BP 129/75 08/09/21 20:18 Pulse Ox 99 08/09/21 20:18 - Consultation Note Consultation Note: Patient is a 21-year-old -0-0-1 at 18 weeks 4 days gestation presenting today with leaking fluid. She says 2 days ago she lost her mucous plug and is concerned as she has a history of labor. She has had intermittent low abdominal cramping as well as back pain. She denies contractions. She has good movement, no leaking, no vaginal bleeding. She denies headache, right upper quadrant pain, changes in vision. Past medical history PTSD Anxiety History of preeclampsia Migraines Ovarian cyst Stomach ulcer Past surgical history [place] [employer] teeth, 2017 Family history Aunt: CVA, breast cancer Father: Alcoholism Paternal grandfather: Heart disease Social history Denies tobacco, alcohol, drugs Physical Exam Temp Pulse Resp BP Pulse Ox 97.3 F L 94 16 129/75 99 08/09/21 20:18 08/09/21 20:18 08/09/21 20:18 08/09/21 20:18 08/09/21 20:18 Constitutional: alert, no acute distress, well hydrated, well developed, well nourished, appropriate dress. Skin: normal turgor, normal color. Head: atraumatic, normocephalic. Cardiovascular: RRR. Respiratory: no respiratory distress. Abdomen: nondistended, nontender.No suprapubic pain. Back: No CVA tenderness Spine: normal mobility. Neurologic: normal, sensation intact, motor intact. Psych: affect and mood appropriate, normal interaction, good eye contact. Vulva: normal appearance, no lesions or masses. Urethra: normal, no masses, non-tender, no discharge. Bladder: normal, no masses, non-tender, non-distended. Vagina: normal, rugated, physiologic discharge, no lesions, no masses, adequate pelvic support. Cervix: normal, no motion tenderness, no lesions. Uterus: mobile, non-tender, adequate support. Adnexa: normal, no masses, mobile, nontender. heart tones appropriate for gestational age Assessment and plan 21-year-old -0-0-1 at 18 weeks 4 days gestation with rupture of membranes ruled out. 1. Encounter for suspected problem with amniotic cavity and membrane rupture ruled out -Negative ROM plus today. UA is unremarkable and unlikely to be a UTI. I think this is likely a small amount of normal urination mixed with her anxiety. A mucous plug of the state is likely inconsequential, and cervical mucus can come and go throughout . I believe this is just an anxious. For her considering her previous and intermittent problems with cramping this . Had an ultrasound on 08/02/2021, 1 week ago showing a cervix without funneling with a 4.6 cm cervix. I have very low concern for previable rupture of membranes, however if this does continue or has significant leaking, she should return for further evaluation given the poor prognosis for the patient and her fetus. 2. 18 weeks gestation -Will follow up in clinic with Dr. Macias. Has an appointment in 2 weeks. 3. Anxiety 4. History of preeclampsia -Taking daily aspirin 5. History of labor -not taking micronized progesterone
[2021-08-09 21:51] LABS: RUPTURE OF MEMBRANES PLUS NEGATIVE (NEGATIVE)
[2021-08-09 22:17] VITALS: BP 110/63
== END 2021-08-09 22:17 | disposition home or self-care (01) ==
LOC: ED 19:55
DX: O99.342 Other mental disorders complicating pregnancy, second trimester (principal); Z3A.18 18 weeks gestation of pregnancy; F43.10 Post-traumatic stress disorder, unspecified; F32.9 Major depressive disorder, single episode, unspecified; O99.891 Other specified diseases and conditions complicating pregnancy; M54.9 Dorsalgia, unspecified; R32 Unspecified urinary incontinence; Z79.899 Other long term (current) drug therapy
CPT/HCPCS: 81001; 84112; 87086; 99282; 99283

== ENCOUNTER 2021-08-19 14:32 | Outpatient (CLI) | payer MEDICAID ==
--- NOTE | 2021-08-19 16:39 | Ultrasound Report ---
PROCEDURE: OB Detailed Eval INDICATIONS: SUPERVISION OF OUTSIDE/PRIOR DATING DATA: Last menstrual period (LMP): 03/08/2021. LMP-based estimated date of delivery (BRANDIE): 12/13/2021. First dating scan (date and location): 05/21/2021. Estimated date of delivery (BRANDIE) from first dating scan: 01/06/2022. TECHNIQUE: Real-time scanning was performed of the fetus, with image documentation and biometric measurements. Endovaginal scanning: No COMPARISON: Ultrasound dated 08/02/2021 FINDINGS: General: A single living intrauterine gestation is present. Presentation: Variable Placenta: Placental position is posterior, without previa. Amniotic fluid index: 14.8 cm heart rate: 152 beats per minute. Maternal cervical canal: 3.4 cm long; normal length is 2.5 cm or more. biometrics: Biparietal diameter: 46 mm; 19 weeks 5 days Head circumference: 168 mm; 19 weeks 3 days Abdominal circumference: 151 mm; 20 weeks 2 days Femur length: 30 mm; 19 weeks 1 day Estimated gestational age from initial scan: 20 weeks 0 days Composite gestational age from present scan: 19 weeks 5 days Estimated weight and percentile: 309 g, which is at the 30th percentile for gestational age Measurement variability in biometric dating: +/- 10 days from 12-20 weeks gestation, +/- 2 weeks from 20-30 weeks gestation, +/- 3 weeks at 30 weeks gestation or later. Anatomic survey: Neuro: Ventricles are normal at less than 10 mm. Cisterna magna is normal at 3-11 mm. Cerebellum i s normal in size and morphology. Nuchal skin fold: Normal at less than 6 mm between 14 and 20 weeks gestational age. Face: Nose and lips, facial profile are normal. Spine: No evidence for spina bifida. Heart: 4-chambered heart is present, with normal ventricular outflow tracts. Diaphragm: Diaphragm is intact. Stomach: Left-sided stomach is present. Kidneys: There is bilateral pelviectasis measuring 4.6 mm on the right and 4.7 mm on the left. Cord: 3 vessel cord has orthotopic insertion. Bladder: Normal in size. Extremities: All 4 extremities are visualized. IMPRESSION: 1. Single living intrauterine gestation. Appropriate interval growth. 2. Mild bilateral pelvocaliectasis. Recommend attention to this finding on follow-up imaging studies. 3. Otherwise negative survey of anatomy. Reviewed by: Clarence Daly MD on 08/19/2021 4:37 PM PDT Approved by: Clarence Daly MD on 08/19/2021 4:37 PM PDT Station ID: [id number]
== END 2021-08-19 14:33 | disposition home or self-care (01) ==
LOC: DI 14:32
PROVIDERS: ATTEND Obstetrics & Gynecology
DX: Z34.82 Encounter for supervision of other normal pregnancy, second trimester (principal); Z36.89 Encounter for other specified antenatal screening; N28.89 Other specified disorders of kidney and ureter

== ENCOUNTER 2021-08-26 15:45 | Outpatient (CLI) | payer MEDICAID ==
[2021-08-26 16:55] LABS: BILIRUBIN,URINE NEGATIVE (NEGATIVE); GLUCOSE, URINE (UA) NEGATIVE (NEGATIVE); KETONES,URINE (UA) NEGATIVE (NEGATIVE); LEUKOCYTE ESTERASE, URINE NEGATIVE (NEGATIVE); NITRITE,URINE NEGATIVE (NEGATIVE); OCCULT BLOOD,URINE NEGATIVE (NEGATIVE); PROTEIN,URINE NEGATIVE (NEGATIVE); UROBILINOGEN,URINE 0.2 (NORMAL) E.U./dL (NORMAL)
[2021-08-26 16:56] LABS: CLARITY,URINE HAZY (CLEAR)
[2021-08-26 17:06] LABS: AMORPHOUS SEDIMENT,UR Moderate /LPF; BACTERIA,URINE Few /HPF (None Seen); RBC,URINE 0-5 /HPF (0-5); SQUAMOUS EPITHELIAL CELL,UR MOD Squamous (<= Few); WBC,URINE 0-3 /HPF (0-5)
--- NOTE | 2021-08-26 17:24 | PROVIDER PROGRESS NOTE ---
- HPI Chief Complaint: Other (Lower abdominal cramping.) Current : Vital Signs Temperature 98.4 F 08/26/21 16:05 Heart Rate 94 08/26/21 16:05 Respiratory Rate 18 08/26/21 16:05 Blood Pressure 122/71 08/26/21 16:05 Temperature 98.4 F 08/26/21 16:05 Heart Rate 94 08/26/21 16:05 Respiratory Rate 18 08/26/21 16:05 Blood Pressure 122/71 08/26/21 16:05 O2 Saturation - Exam 21yo 21 0 had some lower abdominal cramping in the office. Dr. Macias did a cervical exam and found patient to be 1centimeter/long/-3 Patient is having some right flank "aviva horse" intermittently. Patient states she feels a lot of movement. Patient denies vaginal bleeding or leaking of vaginal fluid. Patient denies dysuria or urinary frequency. Patient has a history of threatened labor with first and had to go to [facility] in [place]. Delivered at 37 2/7 due to Gestational Hypertension. O- VSS, afebrile. General: Patient is resting on stretcher in no acute distress. Chest: Clear to auscultation, no rales, wheezes or rhonchi. Heart: RRR without murmur or gallop. Abdomen: Soft, non-tender, gravid. Uterine fundus is just below the umbilicus. Extremities: No edema, no calf tenderness Neuro: DTR's +2/+4 heart tones with doppler in 140-150's. [place]: No contractions or irritability seen on monitor. Urinalysis: Negative for signs of infection. Transvaginal cervical length: 3.0 cm. A-IUP 21 0 with History of Labor that was stopped with first . P- Patient given labor precautions and to follow-up with Dr. Macias on 08/28/2021 as scheduled. - Procedures NST Procedure: NST Procedure Start Time 10:50 Stop Time 10:52
[2021-08-26 18:56] VITALS: BP 121/74
--- NOTE | 2021-08-26 19:32 | Ultrasound Report ---
PROCEDURE: Transvaginal INDICATIONS: , 21 weeks gestation; cramping OUTSIDE/PRIOR DATING DATA: Last menstrual period (LMP): 03/08/2021. LMP-based estimated date of delivery (BRANDIE): 12/13/2021. First dating scan (date and location): 05/21/2021 ; outside. Estimated date of delivery (BRANDIE) from first dating scan: 01/06/2022. The below data below was generated using the ultrasound BRANDIE of 01/06/2022 TECHNIQUE: Real-time scanning was performed of the fetus, with image documentation. Endovaginal scanning: Performed. COMPARISON: Ultrasound, OB, 08/19/2021; 08/02/2021. FINDINGS: A single living intrauterine gestation is present. Presentation: Variable Placenta: Placental position is posterior, without previa. Amniotic fluid index: Not examining. heart rate: 137 beats per minutes. Maternal cervical canal: 4.1 cm long by transabdominal scanning and 3.0 cm by transvaginal scan; norm al length is 2.5 cm or more. No funneling. Estimated gestational age from initial scan: 21 weeks 0 day. IMPRESSION: 1. A single living intrauterine gestation is redemonstrated. 2. Cervix is closed measuring up to 4.1 cm. Reviewed by: Simran Christine MD on 08/26/2021 7:31 PM PST Approved by: Simran Christine MD on 08/26/2021 7:31 PM PST Station ID: [id number]
== END 2021-08-26 18:50 | disposition home or self-care (01) ==
LOC: WFO 15:45 → FBP 15:47 → WFO 18:50
PROVIDERS: ATTEND Obstetrics & Gynecology
DX: O99.891 Other specified diseases and conditions complicating pregnancy (principal); R10.2 Pelvic and perineal pain; Z3A.21 21 weeks gestation of pregnancy; O09.219 Supervision of pregnancy with history of pre-term labor, unspecified trimester; O62.8 Other abnormalities of forces of labor
CPT/HCPCS: 81001; 81003; 82731; 87086; 87661; 87801; 99215

== ENCOUNTER 2021-08-26 15:59 | Outpatient (CLI) | payer MEDICAID ==
[2021-08-26 16:17] LABS: BILIRUBIN,URINE NEGATIVE (NEGATIVE); GLUCOSE, URINE (UA) NEGATIVE (NEGATIVE); KETONES,URINE (UA) NEGATIVE (NEGATIVE); LEUKOCYTE ESTERASE, URINE NEGATIVE (NEGATIVE); NITRITE,URINE NEGATIVE (NEGATIVE); OCCULT BLOOD,URINE NEGATIVE (NEGATIVE); PROTEIN,URINE NEGATIVE (NEGATIVE); UROBILINOGEN,URINE 0.2 (NORMAL) E.U./dL (NORMAL)
[2021-08-26 16:18] LABS: CLARITY,URINE CLOUDY (CLEAR)
[2021-08-26 16:36] LABS: AMORPHOUS SEDIMENT,UR Marked /LPF; BACTERIA,URINE None Seen /HPF (None Seen); RBC,URINE None Seen /HPF (0-5); SQUAMOUS EPITHELIAL CELL,UR RARE Squamous (<= Few); WBC,URINE 0-3 /HPF (0-5)
[2021-08-26 21:54] LABS: BACTERIAL VAGINOSIS DNA NEGATIVE (NEGATIVE); CANDIDA GLABRATA DNA NEGATIVE (NEGATIVE); CANDIDA GROUP DNA POSITIVE (NEGATIVE); CANDIDA KRUSEI DNA NEGATIVE (NEGATIVE); TRICHOMONAS VAGINALIS DNA NEGATIVE (NEGATIVE)
== END 2021-08-26 16:00 | disposition home or self-care (01) ==
LOC: LAB 15:59 → LAB.R 16:00
PROVIDERS: ATTEND Obstetrics & Gynecology
DX: O62.8 Other abnormalities of forces of labor (principal)
CPT/HCPCS: 81001; 81003; 82731; 87661; 87801

== ENCOUNTER 2021-10-02 09:53 | Outpatient (CLI) | payer MEDICAID ==
[2021-10-02 19:16] LABS: BACTERIAL VAGINOSIS DNA NEGATIVE (NEGATIVE); CANDIDA GLABRATA DNA NEGATIVE (NEGATIVE); CANDIDA GROUP DNA POSITIVE (NEGATIVE); CANDIDA KRUSEI DNA NEGATIVE (NEGATIVE); TRICHOMONAS VAGINALIS DNA NEGATIVE (NEGATIVE)
== END 2021-10-02 09:54 | disposition home or self-care (01) ==
LOC: LAB.WC 09:53 → LAB.R 09:53 → LAB.WC 09:54
PROVIDERS: ATTEND Obstetrics & Gynecology
DX: O62.8 Other abnormalities of forces of labor (principal)
CPT/HCPCS: 36415; 81599; 82731; 87661; 87801

== ENCOUNTER 2021-10-21 11:50 | Outpatient (CLI) | payer MEDICAID ==
[2021-10-21] MEDS ORDERED: ACETAMINOPHEN 500 MG TABLET PO ONE ×2 (12:20→12:54)
[2021-10-21] MEDS ORDERED: METOCLOPRAMIDE 10 MG TABLET PO ONE (12:20)
[2021-10-21] MEDS ORDERED: METOCLOPRAMIDE 10 MG TABLET ONE (13:38)
--- NOTE | 2021-10-21 18:22 | PROVIDER PROGRESS NOTE ---
- Procedures NST Procedure: NST Procedure Start Time 10:50 Stop Time 10:52 EFM 130 mod boaz 15x15 accels no decels TOCO: quiet Service Date of procedure: 10/21/21 - Plan Plan: ID: Patient is a 21-year-old -0-0-1 at 29 weeks 0 days gestation presenting today with severe headache. HPI: Patient reports that the headache has been present for more than 24 hours. Not responsive to acetaminophen or fioricet. Rates between a 4 to 8. Mild photophobia. Hx of pre-eclampsia in prior . Has been tracking BPs at home and they have been high normal but not meeting criteria for HTN. No vision change. No RUQ pain. She denies contractions. She has good movement, no leaking, no vaginal bleeding. Past medical history PTSD Anxiety History of preeclampsia Migraines Ovarian cyst Stomach ulcer Past surgical history [place] teeth, 2017 Family history Aunt: CVA, breast cancer Father: Alcoholism Paternal grandfather: Heart disease Social history Works for [employer] Denies tobacco, alcohol, drugs ROS: As per HPI, otherwise remaining systems negative. PE: VS: 98.2 83 115/66 18 98.8 93 125/78 18 GEN: mild distress/photophobia HEENT: NCAT CV: RRR RESP CTAB ABD: gravid, S&NT/ND. No RUQ TTP EXT: WWP, no significant edema NEURO: A&O, DTRs wnl CBC shows HCT 31, otherwise wnl CMP wnl UA negative for protein EFM 130 mod boaz 15x15 accels no decels TOCO: quiet A/P: 21 to at 29+0 wga with intractale headache -Poor response to tylenol and fioricet -Pre-eclampsia eval negative -Provided reglan 10 mg with suboptimal response -Offered patient head CT. Slow process due to [employer] not active.Patient opted to discharge home with fu in clinic Reviewed dx of anemia, may contribute to SEWELL symptoms -Rx for iron and vit C provided FWB: Cat I tracing NST read 10/21/21 DOS: 10/21/21 DX: headache without pre-eclampsia IUP at 29 wga
[2021-10-21 20:40] VITALS: BP 125/78
[2021-10-21 21:17] LABS: ALBUMIN 3.3 g/dL (3.2-5.5); ALBUMIN/GLOBULIN RATIO 0.9 (1.0-2.2); ALKALINE PHOSPHATASE 110 IU/L (42-121); ALT ALANINE AMINOTRANSFERASE 14 IU/L (10-60); AST ASPARTATE AMINOTRANSFERASE 28 IU/L (10-42); BASOPHILS # (AUTO) 0.1 10^3/uL (0.0-0.1); BASOPHILS % (AUTO) 0.4 %; BILIRUBIN,TOTAL 0.5 mg/dL (0.2-1.0); BUN - BLOOD UREA NITROGEN < 5 mg/dL (6-20); CALCIUM 9.5 mg/dL (8.5-10.3); CARBON DIOXIDE - CO2 21 mmol/L (21-32); CHLORIDE 107 mmol/L (101-111); CREATININE 0.6 mg/dL (0.4-1.0); EOSINOPHILS # (AUTO) 0.1 10^3/uL (0.0-0.7); EOSINOPHILS % (AUTO) 1.1 %; GFR - MDRD 125 (>89); GLUCOSE 108 mg/dL (70-100); HCT - HEMATOCRIT 31.7 % (37.0-47.0); HGB - HEMOGLOBIN 10.2 g/dL (12.0-16.0); LYMPHOCYTES # (AUTO) 1.4 10^3/uL (1.5-3.5); LYMPHOCYTES % (AUTO) 12.5 %; MEAN CORPUSCULAR HEMOGLOBIN 27.1 pg (27.0-31.0); MEAN CORPUSCULAR HGB CONC 32.2 g/dL (32.0-36.0); MEAN CORPUSCULAR VOLUME 84.3 fL (81.0-99.0); MEAN PLATELET VOLUME 11.3 fL (7.9-10.8); MONOCYTES # (AUTO) 0.8 10^3/uL (0.0-1.0); MONOCYTES % (AUTO) 7.1 %; NEUTROPHILS # (AUTO) 8.6 10^3/uL (1.5-6.6); NEUTROPHILS % (AUTO) 75.8 %; PLT - PLATELET COUNT 173 10^3/uL (130-450); POTASSIUM 3.4 mmol/L (3.5-5.0); RED BLOOD COUNT 3.76 10^6/uL (4.20-5.40); RED CELL DISTRIBUTION WIDTH 12.9 % (12.0-15.0); SODIUM 140 mmol/L (135-145); WHITE BLOOD COUNT 11.4 x10^3/uL (4.8-10.8)
[2021-10-21 21:18] LABS: BILIRUBIN,URINE NEGATIVE (NEGATIVE); CLARITY,URINE CLEAR (CLEAR); GLUCOSE, URINE (UA) NEGATIVE (NEGATIVE); KETONES,URINE (UA) NEGATIVE (NEGATIVE); LEUKOCYTE ESTERASE, URINE NEGATIVE (NEGATIVE); NITRITE,URINE NEGATIVE (NEGATIVE); OCCULT BLOOD,URINE NEGATIVE (NEGATIVE); PROTEIN,URINE NEGATIVE (NEGATIVE); UROBILINOGEN,URINE 0.2 (NORMAL) E.U./dL (NORMAL)
== END 2021-10-21 16:00 | disposition home or self-care (01) ==
LOC: WFO 11:50 → FBP 13:50 → WFO 16:00
PROVIDERS: ATTEND Obstetrics & Gynecology
DX: O99.891 Other specified diseases and conditions complicating pregnancy (principal); R51.9 Headache, unspecified; O99.013 Anemia complicating pregnancy, third trimester; Z3A.29 29 weeks gestation of pregnancy; Z86.69 Personal history of other diseases of the nervous system and sense organs
CPT/HCPCS: 36415; 59025; 80053; 81003; 85025; 99214; A9270; 81001; 87086

== ENCOUNTER 2021-11-01 18:39 | Outpatient (CLI) | payer MEDICAID ==
--- NOTE | 2021-11-02 00:03 | Ultrasound Report ---
PROCEDURE: OB F/U or Repeat INDICATIONS: SUPERVISION, F/U OBFAS OUTSIDE/PRIOR DATING DATA: Last menstrual period (LMP): 03/08/2021. LMP-based estimated date of delivery (BRANDIE): 12/13/2021. First dating scan (date and location): 05/21/2021. Estimated date of delivery (BRANDIE) from first dating scan: 01/06/2022. The below data below was generated using the ultrasound BRANDIE of 01/06/2022 TECHNIQUE: Real-time scanning was performed of the fetus, with image documentation and biometric measurements. Endovaginal scanning: Not performed COMPARISON: 08/26/2021. FINDINGS: General: A single living intrauterine gestation is present. Presentation: Vertex Placenta: Placental position is posterior, without previa. Amniotic fluid index: 18.4 cm with largest vertical pocket measuring 5.7 cm heart rate: 141 beats per minute. Maternal cervical canal: 3.4 cm long; normal length is 2.5 cm or more. Estimated gestational age from initial scan: 30 weeks and 4 days Other: Right renal pelvis measures 4 mm in maximum AP dimension. Left renal pelvis measures 4 mm in m aximum AP dimension. IMPRESSION: 1. Single living intrauterine gestation with estimated gestational age of approximately 30 weeks and 4 days. 2. Bilateral renal pelvis measures within normal limits for gestational age. Maximum AP dimension of the bilateral renal pelvis both measure approximately 4 mm. 3. Four-quadrant VALORIE measuring 18.4 cm with largest vertical pocket measuring 5.7 cm. Reviewed by: Lobito Delarosa MD on 11/02/2021 12:01 AM PST Approved by: Lobito Delarosa MD on 11/02/2021 12:01 AM PST Station ID: [id number]
== END 2021-11-01 18:40 | disposition home or self-care (01) ==
LOC: DI 18:39
PROVIDERS: ATTEND Obstetrics & Gynecology
DX: Z34.83 Encounter for supervision of other normal pregnancy, third trimester (principal)

== ENCOUNTER 2021-11-20 09:26 | Outpatient (CLI) | payer MEDICAID ==
[2021-11-20] MEDS ORDERED: BETAMETHASONE 30 MG/5 ML VIAL IM ONE (09:32)
[2021-11-20 10:47] LABS: BILIRUBIN,URINE NEGATIVE (NEGATIVE); GLUCOSE, URINE (UA) NEGATIVE (NEGATIVE); KETONES,URINE (UA) NEGATIVE (NEGATIVE); LEUKOCYTE ESTERASE, URINE NEGATIVE (NEGATIVE); NITRITE,URINE NEGATIVE (NEGATIVE); OCCULT BLOOD,URINE NEGATIVE (NEGATIVE); PROTEIN,URINE NEGATIVE (NEGATIVE); UROBILINOGEN,URINE 0.2 (NORMAL) E.U./dL (NORMAL)
[2021-11-20 10:53] LABS: BACTERIA,URINE None Seen /HPF (None Seen); CLARITY,URINE CLEAR (CLEAR); RBC,URINE None Seen /HPF (0-5); SQUAMOUS EPITHELIAL CELL,UR RARE Squamous (<= Few); WBC,URINE 0-3 /HPF (0-5)
[2021-11-20] MEDS ORDERED: ONDANSETRON ODT 4 MG TABLET TL PRN (13:34)
[2021-11-20] MEDS ORDERED: hydrOXYzine PAMOATE 25 MG CAPSULE PO PRN (13:34)
[2021-11-20] MEDS ORDERED: MAGNESIUM SULFATE 2 GRAM 2 GM/50 ML BAG IV ONE (17:17)
[2021-11-20] MEDS ORDERED: MAGNESIUM SULFATE 4 GRAM 4 GM/50 ML BAG IV ONE (17:17)
[2021-11-20] MEDS ORDERED: LIDOCAINE-MPF 1% 30 ML VIAL ID PRN (17:17)
[2021-11-20] MEDS ORDERED: OXYTOCIN/SODIUM CHLORIDE 500 ML IV PRN (17:17)
[2021-11-20] MEDS ORDERED: TERBUTALINE 1 MG/ML VIAL SUBQ PRN (17:17)
[2021-11-20] MEDS ORDERED: hydrALAZINE INJ 20 MG/ML VIAL IVP PRN (17:17)
[2021-11-20] MEDS ORDERED: LABETALOL 20 MG/4 ML SYRINGE IVP PRN ×2 (17:17)
[2021-11-20] MEDS ORDERED: AMPICILLIN 2 GM in SODIUM CHLORIDE 0.9% MINIBAG 100 ML IV SCH (17:20)
[2021-11-20] MEDS ORDERED: LACTATED RINGERS 1,000 ML ONE (17:39)
[2021-11-20] MEDS ORDERED: AMPICILLIN 2 GM VIAL IV ONE (17:44)
[2021-11-20] MEDS ORDERED: SODIUM CHLORIDE 0.9% 100ML 100 ML IV ONE (17:44)
[2021-11-20] MEDS ORDERED: SODIUM CHLORIDE FLUSH 0.9% 10 ML SYRINGE IVP SCH (18:00)
[2021-11-20] MEDS ORDERED: MAGNESIUM SULFATE IN WATER 20 GM/500 ML IV.SOLN IV SCH (18:00)
[2021-11-20 18:07] LABS: BASOPHILS % (AUTO) 0.6 %; EOSINOPHILS % (AUTO) 0.1 %; HCT - HEMATOCRIT 30.2 % (37.0-47.0); HGB - HEMOGLOBIN 9.5 g/dL (12.0-16.0); LYMPHOCYTES % (AUTO) 5.9 %; MEAN CORPUSCULAR HEMOGLOBIN 25.3 pg (27.0-31.0); MEAN CORPUSCULAR HGB CONC 31.5 g/dL (32.0-36.0); MEAN CORPUSCULAR VOLUME 80.3 fL (81.0-99.0); PLT - PLATELET COUNT 166 10^3/uL (130-450); RED BLOOD COUNT 3.76 10^6/uL (4.20-5.40); RED CELL DISTRIBUTION WIDTH 13.9 % (12.0-15.0); WHITE BLOOD COUNT 15.9 x10^3/uL (4.8-10.8)
[2021-11-20 18:16] LABS: ALBUMIN 3.2 g/dL (3.2-5.5); ALBUMIN/GLOBULIN RATIO 0.7 (1.0-2.2); BILIRUBIN,TOTAL 0.9 mg/dL (0.2-1.0); CALCIUM 9.4 mg/dL (8.5-10.3); CREATININE 0.6 mg/dL (0.4-1.0); POTASSIUM 3.4 mmol/L (3.5-5.0); TOTAL PROTEIN 7.6 g/dL (6.7-8.2)
[2021-11-20 18:19] LABS: SLIDE REVIEW? Indicated
[2021-11-20 18:20] LABS: ABNORMAL LYMPHS % (MANUAL) 0 %
--- NOTE | 2021-11-20 18:25 | HISTORY & PHYSICAL EXAMINATION ---
Admit History - Smoking Status: Former smoker - Other Maternal History Other Maternal History: ID: Patient is a 21-year-old at 33 weeks and 2 days by 7-week ultrasound, who presents with advanced cervical dilation. HPI: Patient presented to clinic for routine exam this am. She reported having severe cramping over the weekend such that she spent an afternoon lying in the bathtub running hot water over her abdomen. She has had several assessments for labor over the course of this and has had reassuring exams and TVCL. As such, she did not present to triage. No LOF or VB. No contractions at present. She without symptoms other than generalized discomfort in hips and back from . Cervical exam in clinic was 3/60/-2. She was sent to triage for evaluation. No contractions on tocometry. She was givne betamethasone and was observed. On follow-up assessment, she had advanced to 4/80/-2. No active contractions noted by patient and none are present on the monitor. GBS/ GCCT/vaginitis panel pending. UA wnl. Denies history of STIs and specifically denies a history of genital herpes. has been complicated by a short inter- interval with a prior vaginal delivery on 12/19/2020 with baby girl name Rekha. That was complicated by labor which stalled at 3 cm. She then developed pre- eclampsia and underwent IOL at 37 weeks. Prior complicated by IUGR. EFW this is 30%ile. She has been taking ASA 81 mg for pre-eclampsia prophylaxis. PNC: LMP: 03/08/2021 BRANDIE by LMP: 12/13/2021 Initial U/S: at 7.1wks NOT c/w LMP for BRANDIE 01/06/2022 FINAL BRANDIE: 01/06/2022 RECENT VAGINAL DELIVERY 12/19/2020. Girl named Tracey Hx of pre-eclampsia prior - -On ASA HEADACHE: Normal blood pressures Had been seen in triage yesterday Normal PIH labs Offered CT scan but symptoms have not worsened and patient did not want to wait for scan. Anemia- starting iron. ordering Reglan -COVID positive, recovered (headache attributed to COVID) IUGR in prior Declined MFM consult EFW at 20 weeks 30%ile Uterine irritability: FFN + with mild change in SVE 10/02/21 TVCL 3.1 cm10/02/21 TVCL 3.4cm 11/01/21 -Stopped taking vaginal progesterone -Today /-2; sending to triage O pos/ Rub immune VZV: immune Genetic testing: desires [place]; 46 XY MSAFP wnl FAS: posterior, CL 3.4, EFW 30%ile, 3VC. Mild bilateral renal pelviectasis was 4.6 and 4.7 mm. -US on 11/01/21 shows resolution of renal pelviectasis Glucola:10/17/2021 95 Influenza: 07/29/2021 Tdap: 10/23/2021 Covid vax: fully vaccinated GBS: 36w HSV: Denies self and parter. 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 Head: Normocephalic and atraumatic. Eyes: No scleral icterus or conjunctival injection. Cardiovascular: Regular rate and rhythm. Respiratory: Clear to auscultation bilaterally. Normal respiratory effort. Abdomen: Soft, nontender, nondistended. Extremities: Warm and well perfused. No lower extremity edema. Neurologic: Alert and oriented with normal gait and coordination. Psych: Bright and reactive affect. EFM 120 mod boaz 15x15 accels no decels TOCO: quiet SVE /-2 in clinic /-2 on fu SVE A/P: Patient is a 21-year-old at 33 weeks and 2 days by 7-week ultrasound, who presents with advanced cervical dilation. ACD/PTL: No clearly in labor. No contractions on tocometry and patient is not feeling contractions. Does have advanced cervical dialtion with passive advancement in dilation and effacement. -BMZ given at 9:57 am -Reviewed data on magnesium for neuro ppx at GA 32-34; patient opting for magnesium -Ampicillin givne for GBS unknown -GBS pending -GCCT and vaginitis panel pending FWB: vertex, Cat I tracing, well grown -Mg for neuro ppx -Ampicillin for GBS ppx -CEFM DISPO: Transfer given advancing cervical dilation at early gestational age Patient accepted for transfer by Dr. Sruthi Rutledge in order to access NICU services at [facility] . Meds/Allgy - Home Medications Home Medications: Ambulatory Orders Medication Instructions Recorded Confirmed SUMAtriptan [Imitrex] 25 mg PO BID PRN #10 tablet 06/15/19 Butalb/Acetaminophen/Caffeine 1 cap PO Q6H PRN #10 cap 06/02/21 [Fioricet 50-300-40 mg Capsule] Ondansetron Odt [Zofran] 4 mg TL Q6H PRN #10 tablet 06/02/21 - Allergies Allergies/Adverse Reactions: Allergies Allergy/AdvReac Type Severity Reaction Status Date / Time cetirizine HCl * Allergy Itching Verified 08/09/21 20:21 [From [facility]] Physical - Abdominal Exam Vital Signs: Temp Pulse Resp BP Pulse Ox 98.4 F 119 H 17 130/78 98 11/20/21 13:34 11/20/21 09:40 11/20/21 09:40 11/20/21 09:40 11/20/21 09:40
[2021-11-20 20:01] LABS: BAND NEUTROPHILS % (MANUAL) 2 %; DIFFERENTIAL COMMENT MANUAL DIFFERENTIAL; LYMPHOCYTES # (MANUAL) 0.6 10^3/uL (1.5-3.5); LYMPHOCYTES % (MANUAL) 4 %; MONOCYTES # (MANUAL) 0.8 10^3/uL (0.0-1.0); NEUTROPHILS # (MANUAL) 14.5 10^3/uL (1.5-6.6); PLATELET ESTIMATE, MANUAL NORMAL (130-450,000) (NORMAL); PLATELET MORPHOLOGY NORMAL APPEARANCE (NORMAL); RBC MORPHOLOGY (MULTIPLE) NORMAL APPEARANCE (NORMAL)
[2021-11-20 22:15] LABS: BACTERIAL VAGINOSIS DNA NEGATIVE (NEGATIVE); CANDIDA GLABRATA DNA NEGATIVE (NEGATIVE); CANDIDA GROUP DNA POSITIVE (NEGATIVE); CANDIDA KRUSEI DNA NEGATIVE (NEGATIVE); TRICHOMONAS VAGINALIS DNA NEGATIVE (NEGATIVE)
[2021-11-20 23:09] LABS: CHLAMYDIA TRACHOMATIS DNA NEGATIVE (NEGATIVE); NEISSERIA GONORRHOEAE DNA NEGATIVE (NEGATIVE); TRICHOMONAS VAGINALIS DNA NEGATIVE (NEGATIVE)
[2021-11-21 07:35] VITALS: BP 131/68
[2021-11-21] MEDS ORDERED: BETAMETHASONE 30 MG/5 ML VIAL IM ONE (09:30)
[2021-11-21] MEDS ORDERED: AMPICILLIN 2 GM in SODIUM CHLORIDE 0.9% MINIBAG 100 ML IV ONE (17:20)
== END 2021-11-20 18:50 | disposition short-term general hospital (02) ==
LOC: WFO 09:26 → FBP 09:27 → WFO 18:50
PROVIDERS: ATTEND Obstetrics & Gynecology
DX: O47.03 False labor before 37 completed weeks of gestation, third trimester (principal); O26.893 Other specified pregnancy related conditions, third trimester; O09.213 Supervision of pregnancy with history of pre-term labor, third trimester; Z3A.33 33 weeks gestation of pregnancy; Z87.891 Personal history of nicotine dependence; Z79.82 Long term (current) use of aspirin; Z87.898 Personal history of other specified conditions; Z86.16 Personal history of COVID-19
CPT/HCPCS: 80053; 81001; 85025; 86850; 86900; 86901; 87481; 87491; 87591; 87661; 87797; 87801; 96365; 96367; 96372; 99215; J7120; 87086; 99214; J3475

== ENCOUNTER 2021-11-20 19:03 | Outpatient (CLI) | payer MEDICAID | END 2021-11-20 19:04 | disposition short-term general hospital (02) | LOC: EMS 19:03 | PROVIDERS: ATTEND Obstetrics & Gynecology | DX: O34.33 Maternal care for cervical incompetence, third trimester (principal); Z3A.33 33 weeks gestation of pregnancy | CPT/HCPCS: A0425; A0426 ==

== ENCOUNTER 2021-11-24 16:32 | Outpatient (CLI) | payer MEDICAID ==
[2021-11-24 17:23] LABS: BILIRUBIN,URINE NEGATIVE (NEGATIVE); GLUCOSE, URINE (UA) NEGATIVE (NEGATIVE); KETONES,URINE (UA) NEGATIVE (NEGATIVE); LEUKOCYTE ESTERASE, URINE NEGATIVE (NEGATIVE); NITRITE,URINE NEGATIVE (NEGATIVE); OCCULT BLOOD,URINE NEGATIVE (NEGATIVE); PROTEIN,URINE NEGATIVE (NEGATIVE); UROBILINOGEN,URINE 0.2 (NORMAL) E.U./dL (NORMAL)
[2021-11-24 17:25] LABS: CLARITY,URINE CLEAR (CLEAR)
[2021-11-24 17:37] LABS: WBC,URINE 0-3 /HPF (0-5)
[2021-11-24 17:38] LABS: BACTERIA,URINE None Seen /HPF (None Seen); RBC,URINE 0-5 /HPF (0-5); SQUAMOUS EPITHELIAL CELL,UR FEW Squamous (<= Few)
--- NOTE | 2021-11-24 17:40 | PROVIDER PROGRESS NOTE ---
- HPI Chief Complaint: Labor Current : Vital Signs Temperature 98.4 F 11/24/21 16:48 Heart Rate 88 11/24/21 16:48 Respiratory Rate 20 11/24/21 16:48 Blood Pressure 140/82 H 11/24/21 16:48 Temperature 98.4 F 11/24/21 16:48 Heart Rate 88 11/24/21 16:48 Respiratory Rate 20 11/24/21 16:48 Blood Pressure 140/82 H 11/24/21 16:48 O2 Saturation - Procedures OB Procedure Performed: NST Diagnosis/Indication for NST: labor NST Procedure: NST Procedure Start Time 11:50 Stop Time 12:30 Date performed 11/24/21 Date read: 11/24/21 - Plan Plan: Patient is a 21-year-old -0-0-1 at 33 weeks 6 days gestation presenting to triage for cramping. She was seen in triage 4 days ago and diagnosed with advanced cervical dilation. She was evaluated here then sent to [facility] for evaluation for labor. She received magnesium as well as betamethasone. She made no further cervical change and was discharged. She was told to have close follow-up if she had continued cramping. Today she had some slight cramping and while mildly concerned, she was told to follow-up if she had anything so she would like to be evaluated. She attempted to take a nap, but it still persisted upon waking 2 hours later. She has good movement. She does say she sometimes urinates on herself, and had a small trickle earlier, while she does not believe she is ruptured, she did want a make us aware. She did have also have a small amount of pink when spotting. She believes this may be bloody show from her cervix dilating. She denies headache, right upper quadrant pain, changes in vision. Denies dysuria or increased urinary urgency. All other symptoms reviewed and were negative except per HPI. course: LMP: 03/08/2021 BRANDIE by LMP: 12/13/2021 Initial U/S: at 7.1wks NOT c/w LMP for BRANDIE 01/06/2022 FINAL BRANDIE: 01/06/2022 RECENT VAGINAL DELIVERY 12/19/2020 Girl named Tracey Hx of pre-eclampsia prior - -On ASA HEADACHE: Normal blood pressures Had been seen in triage yesterday Normal PIH labs Offered CT scan but symptoms have not worsened and patient did not want to wait for scan. Anemia- starting iron. ordering Reglan -COVID positive, recovered (headache attributed to COVID) IUGR in prior Declined MFM consult EFW at 20 weeks 30%ile Uterine irritability: FFN + with mild change in SVE 10/02/21 TVCL 3.1 cm10/02/21 TVCL 3.4cm 11/01/21 -Stopped taking vaginal progesterone -Today /-2; sending to triage O pos/ Rub immune VZV: immune Genetic testing: desires [place]; 46 XY MSAFP wnl FAS: posterior, CL 3.4, EFW 30%ile, 3VC. Mild bilateral renal pelviectasis was 4.6 and 4.7 mm. -US on 11/01/21 shows resolution of renal pelviectasis Glucola:10/17/2021 95 Influenza: 07/29/2021 Tdap: 10/23/2021 Covid vax: fully vaccinated GBS: 36w HSV: Denies self and parter. Positive for oral HSV Breast pump rx:10/02/2021 MOD: anticipate vaginal delivery pp contraception: pap: 02/08/20 wnl Past medical history Depression Migraines Ovarian cyst Stomach ulcers History of preeclampsia Past surgical history [place] teeth removal: 2017 Family history And: CVA Aunt: Breast cancer Father: Alcohol abuse Paternal grandfather: CVD Social history Denies tobacco, alcohol, drugs Physical Exam Constitutional: alert, no acute distress, well hydrated, well developed, well nourished, appropriate dress. Cardiovascular: RRR. Respiratory: no respiratory distress. Abdomen: Gravid, nondistended, nontender. Neurologic: normal, sensation intact, motor intact. Psych: affect and mood appropriate, normal interaction, good eye contact. SSE: No pooling, negative Valsalva. Small amount of physiologic discharge. FFM and ROM plus collected SVE: 50/-3 Regional Transfer Liaison present for exam. FHT: 125 beats per baseline, moderate variability, accelerations present, no decelerations. [place]: Quiescent US: cephalic presentation, subjectively normal VALORIE. Laboratory Last Values Urine Color STRAW 11/24/21 16:40 Urine Clarity CLEAR (CLEAR) 11/24/21 16:40 Urine pH 7.0 PH (5.0-7.5) 11/24/21 16:40 Ur Specific [place] 1.010 (1.002-1.030) 11/24/21 16:40 Urine Protein NEGATIVE mg/dL (NEGATIVE) 11/24/21 16:40 Urine Glucose (UA) NEGATIVE mg/dL (NEGATIVE) 11/24/21 16:40 Urine Ketones NEGATIVE mg/dL (NEGATIVE) 11/24/21 16:40 Urine Occult Blood NEGATIVE (NEGATIVE) 11/24/21 16:40 Urine Nitrite NEGATIVE (NEGATIVE) 11/24/21 16:40 Urine Bilirubin NEGATIVE (NEGATIVE) 11/24/21 16:40 Urine Urobilinogen 0.2 (NORMAL) E.U./dL (NORMAL) 11/24/21 16:40 Ur Leukocyte Esterase NEGATIVE (NEGATIVE) 11/24/21 16:40 Urine RBC 0-5 /HPF (0-5) 11/24/21 16:40 Urine WBC 0-3 /HPF (0-5) 11/24/21 16:40 Ur Squamous Epith Cells FEW Squamous (<= Few) 11/24/21 16:40 Urine Bacteria None Seen /HPF (None Seen) 11/24/21 16:40 Urine Culture Comments NOT INDICATED 11/24/21 16:40 Membranes Rupture NEGATIVE (NEGATIVE) 11/24/21 17:10 Fibronectin NEGATIVE (NEGATIVE) 11/24/21 17:10 Assessment and plan 19-year-old -0-0-1 at 33 weeks 6 days gestation by 7-week ultrasound with advanced cervical dilation 1. Advanced cervical dilation -Already received magnesium sulfate and betamethasone for lung maturity. -Does not appear to be in labor. Cervix rechecked after 2 hours with additional dilation -Negative FFN -Patient discharged home with strict labor precautions. 2. Yeast vaginitis -will treat with diflucan 150mg PO x1 3. 33 weeks gestation -NST reactive 4. Leaking fluid -Negative Rom Plus 5. GBS negative -Collected at 33 weeks. If still , will recollect closer to term.
[2021-11-24 17:44] LABS: RUPTURE OF MEMBRANES PLUS NEGATIVE (NEGATIVE)
[2021-11-24] MEDS ORDERED: FLUCONAZOLE 100 MG TABLET PO SCH (19:00)
[2021-11-24 19:38] VITALS: BP 131/82
== END 2021-11-24 19:30 | disposition home or self-care (01) ==
LOC: WFO 16:32 → FBP 16:33 → WFO 19:30
PROVIDERS: ATTEND Obstetrics & Gynecology
DX: O47.03 False labor before 37 completed weeks of gestation, third trimester (principal); O26.93 Pregnancy related conditions, unspecified, third trimester; O98.813 Other maternal infectious and parasitic diseases complicating pregnancy, third trimester; B37.3 Candidiasis of vulva and vagina; Z3A.33 33 weeks gestation of pregnancy
CPT/HCPCS: 59025; 81001; 82731; 84112; 99214; A9270; 87086

== ENCOUNTER 2021-11-29 14:37 | Outpatient (CLI) | payer MEDICAID ==
--- NOTE | 2021-11-29 15:13 | PROCEDURE REPORT ---
- HPI Diagnosis/Indication for NST: Other (Advanced cervical dilation, anemia) G2, P1 with a history of contractions, advanced cervical dilation and anemia.. - NST Procedure NST Procedure Start Time 15:10 Stop Time 15:37 heart rate baseline- 140 beats per minutes Moderate variability Accelerations 15x15 Decelerations none Contractions none NST reactive and reassuring - Results and Plan Findings/Impression: heart rate baseline-beats per minutes Moderate variability Accelerations Decelerations none Contractions rare NST reactive and reassuring Plan: She presented for IV iron infusion and NST. NST reactive and reassuring. Status post IV iron infusion. Follow-up in 1 week.
[2021-11-29] MEDS ORDERED: FERRIC GLUCONATE 125 MG in SODIUM CHLORIDE 0.9% 100ML 100 ML IV ONE (15:30)
[2021-11-29 15:41] VITALS: BP 134/70
== END 2021-11-29 17:00 | disposition home or self-care (01) ==
LOC: WFO 14:37 → FBP 14:40 → WFO 17:00
PROVIDERS: ATTEND Obstetrics & Gynecology
DX: O60.03 Preterm labor without delivery, third trimester (principal); O99.013 Anemia complicating pregnancy, third trimester; Z3A.34 34 weeks gestation of pregnancy
CPT/HCPCS: 59025; 96365; J2916; 99213

== ENCOUNTER 2021-12-11 08:00 | Outpatient (CLI) | payer MEDICAID | END 2021-12-11 23:59 | disposition home or self-care (01) | LOC: LAB 08:00 | PROVIDERS: ATTEND Obstetrics & Gynecology | DX: Z36.85 Encounter for antenatal screening for Streptococcus B (principal) | CPT/HCPCS: 87797 ==

== ENCOUNTER 2021-12-13 15:56 | Outpatient (CLI) | payer MEDICAID ==
--- NOTE | 2021-12-13 17:24 | XRAY Report ---
PROCEDURE: Foot 2 View RT INDICATIONS: Soft tissue carbuncle involving the third toe. TECHNIQUE: 2 views of the foot were acquired. COMPARISON: None FINDINGS: Bones: No fractures or dislocations. No suspicious bony lesions. Soft tissues: No tibiotalar joint effusion. Achilles tendon appears normal. No radiodense foreign b odies identified in the soft tissues in particular at the base of the third toe. IMPRESSION: Normal examination. Reviewed by: Nimo Oswald MD, PhD on 12/13/2021 5:22 PM PST Approved by: Nimo Oswald MD, PhD on 12/13/2021 5:22 PM PST Station ID: [id number]
== END 2021-12-13 15:57 | disposition home or self-care (01) ==
LOC: DI.S 15:56
PROVIDERS: ATTEND Registered Nurse
DX: L02.6 Cutaneous abscess, furuncle and carbuncle of foot (principal)

== ENCOUNTER 2021-12-18 09:36 | Outpatient (CLI) | payer MEDICAID ==
[2021-12-18 10:11] LABS: BASOPHILS # (AUTO) 0.1 10^3/uL (0.0-0.1); BASOPHILS % (AUTO) 0.7 %; EOSINOPHILS % (AUTO) 0.4 %; HCT - HEMATOCRIT 36.2 % (37.0-47.0); HGB - HEMOGLOBIN 11.5 g/dL (12.0-16.0); LYMPHOCYTES # (AUTO) 1.5 10^3/uL (1.5-3.5); LYMPHOCYTES % (AUTO) 13.8 %; MEAN CORPUSCULAR HEMOGLOBIN 27.1 pg (27.0-31.0); MEAN CORPUSCULAR HGB CONC 31.8 g/dL (32.0-36.0); MEAN CORPUSCULAR VOLUME 85.4 fL (81.0-99.0); MEAN PLATELET VOLUME 10.4 fL (7.9-10.8); MONOCYTES % (AUTO) 8.9 %; NEUTROPHILS # (AUTO) 7.7 10^3/uL (1.5-6.6); NEUTROPHILS % (AUTO) 69.9 %; PLT - PLATELET COUNT 127 10^3/uL (130-450); RED BLOOD COUNT 4.24 10^6/uL (4.20-5.40); RED CELL DISTRIBUTION WIDTH 20.6 % (12.0-15.0)
[2021-12-18 10:11] LABS: CREATININE,URINE 51.8 mg/dL; PROTEIN/CREATININE RATIO,URINE 0.2 (<=0.2)
[2021-12-18 10:21] LABS: ALBUMIN 3.4 g/dL (3.2-5.5); ALBUMIN/GLOBULIN RATIO 0.9 (1.0-2.2); BILIRUBIN,TOTAL 0.9 mg/dL (0.2-1.0); CALCIUM 8.9 mg/dL (8.5-10.3); CREATININE 0.5 mg/dL (0.4-1.0); POTASSIUM 3.5 mmol/L (3.5-5.0); TOTAL PROTEIN 7.2 g/dL (6.7-8.2)
[2021-12-18 10:44] LABS: PLATELET ESTIMATE, MANUAL DECREASED (<130,000) (NORMAL); PLATELET MORPHOLOGY NORMAL APPEARANCE (NORMAL); RBC MORPHOLOGY (MULTIPLE) 1+ ANISOCYTOSIS (NORMAL); SLIDE REVIEW? Indicated; WBC MORPHOLOGY (MULTIPLE) NORMAL APPEARANCE (NORMAL)
[2021-12-18 10:45] VITALS: BP 136/78
--- NOTE | 2021-12-18 12:36 | Ultrasound Report ---
PROCEDURE: OB Limited INDICATIONS: Elevated blood pressure OUTSIDE/PRIOR DATING DATA: Last menstrual period (LMP): 03/08/2021. LMP-based estimated date of delivery (BRANDIE): 12/13/2021. First dating scan (date and location): 05/21/2021. Estimated date of delivery (BRANDIE) from first dating scan: 01/06/2022. The below data below was generated using the ultrasound BRANDIE of 321 2 TECHNIQUE: Real-time scanning was performed of the fetus, with image documentation. COMPARISON: None. FINDINGS: A single living intrauterine gestation is present. Presentation: Vertex Placenta: Placental position is posterior, without previa. Amniotic fluid index: 25.9 cm, within normal for gestational age. Largest pocket 9.2 cm. heart rate: 144 beats per minutes. Maternal cervical canal: not well seen Estimated gestational age from initial scan: 37 weeks 2 days. IMPRESSION: Single live intrauterine with ultrasound gestational age of 37 weeks 2 days. VALORIE 25.9 cm, largest pocket 9.2 cm. Reviewed by: Dyan Herrera MD on 12/18/2021 12:35 PM PST Approved by: Dyan Herrera MD on 12/18/2021 12:35 PM PST Station ID: [id number]
--- NOTE | 2021-12-19 02:53 | PROVIDER PROGRESS NOTE ---
- HPI Chief Complaint: Hypertension/PIH Current : Current EDU 01/06/22 Gestation 37 Weeks and 2 Days 2 Para 1 Vital Signs Temperature 98.1 F 12/18/21 09:51 Heart Rate 99 12/18/21 09:51 Respiratory Rate 17 12/18/21 09:51 Blood Pressure 125/75 12/18/21 09:51 O2 Saturation 99 12/18/21 09:51 Temperature 98.1 F 12/18/21 10:01 Heart Rate 84 12/18/21 10:44 Respiratory Rate 17 12/18/21 09:51 Blood Pressure 136/78 H 12/18/21 10:44 O2 Saturation 99 12/18/21 09:51 - Procedures OB Procedure Performed: NST Diagnosis/Indication for NST: Gestational Hypertension NST Procedure: NST Procedure Start Date 12/18/21 Start Time 09:50 Stop Time 10:10 Vibroacoustic Stimulation Used No Patient States Movement Yes EFM 130 mod boaz 15x15 accels no decels TOCO: irritable Service Date of procedure: 12/18/21 - Plan Plan: 21 yo at 37+ 2 here for pIH evaluation Hx of PIH one year ago Mild range pressures in clinic. Had been having RUQ pain overnight but nothing at present Sent to triage for labs and eval Normal range pressures in triage Neg P:C. CMP, CBC Cont with monitor Reviewed indications for IOL Desires DC to home as daughter's first birthday is tomorrow. Warning signs reviewed Cat I tracing DOS: 12/18/21 NST read 12/18/21
== END 2021-12-18 11:42 | disposition home or self-care (01) ==
LOC: WFO 09:36 → FBP 09:37 → WFO 11:42
PROVIDERS: ATTEND Obstetrics & Gynecology
DX: Z03.79 Encounter for other suspected maternal and fetal conditions ruled out (principal); Z86.79 Personal history of other diseases of the circulatory system
CPT/HCPCS: 36415; 59025; 80053; 82570; 84156; 85025; 99215

== ENCOUNTER 2021-12-24 04:35 | Inpatient (IN) | payer MEDICAID ==
[2021-12-24 04:56] LABS: RUPTURE OF MEMBRANES PLUS POSITIVE (NEGATIVE)
[2021-12-24] MEDS ORDERED: LACTATED RINGERS 1,000 ML IV SCH (05:00)
[2021-12-24] MEDS ORDERED: CARBOPROST TROMETHAMINE 250 MCG/ML AMP IM PRN (05:02)
[2021-12-24] MEDS ORDERED: TRANEXAMIC ACID IN NACL 1,000 MG/100 ML BAG IV PRN (05:02)
[2021-12-24] MEDS ORDERED: fentaNYL 100 MCG/2 ML VIAL IVP PRN (05:02)
[2021-12-24] MEDS ORDERED: miSOPROStoL 200 MCG TABLET PR PRN (05:02)
[2021-12-24] MEDS ORDERED: TERBUTALINE 1 MG/ML VIAL SUBQ PRN (05:02)
[2021-12-24] MEDS ORDERED: SODIUM CHLORIDE FLUSH 0.9% 10 ML SYRINGE IVP PRN (05:02)
[2021-12-24] MEDS ORDERED: miSOPROStoL 200 MCG TABLET BC PRN (05:02)
[2021-12-24] MEDS ORDERED: hydrALAZINE INJ 20 MG/ML VIAL IVP PRN (05:02)
[2021-12-24] MEDS ORDERED: OXYTOCIN/SODIUM CHLORIDE 500 ML IV PRN (05:02)
[2021-12-24] MEDS ORDERED: LIDOCAINE-MPF 1% 30 ML VIAL ID PRN (05:02)
[2021-12-24] MEDS ORDERED: OXYTOCIN 10 UNIT/ML VIAL IM PRN (05:02)
[2021-12-24] MEDS ORDERED: LABETALOL 20 MG/4 ML SYRINGE IVP PRN ×2 (05:02)
[2021-12-24] MEDS ORDERED: METHYLERGONOVINE 0.2 MG/ML VIAL IM PRN (05:02)
--- NOTE | 2021-12-24 05:10 | HISTORY & PHYSICAL EXAMINATION ---
Admit History - : 2 Parity: 1 Premature: 0 : 0 Risk/History: positive: induced HTN Smoking Status: Former smoker - Mother's Labs Mother's Blood Type: positive: O Mother's RH: positive: Positive GBS: positive: Group B Step Negative Rubella Status: positive: Immune - Other Maternal History Other Maternal History: HPI: 21-year-old -0-0-1 at 38 weeks 1 day gestation presented today after loss of fluid at 0400. She has good movement. Some contractions, but not sure how often. No SEWELL/BV or RUQP. No vaginal bleeding. Denies nausea and vomiting. Denies urinary urgency or dysuria. All other symptoms reviewed and were negative except per HPI. Course PROBLEMS: RECENT VAGINAL DELIVERY 12/19/2020. Girl named Tracey Hx of pre-eclampsia prior - -On ASA HEADACHE: Normal blood pressures; had been in setting of COVID, now recovered Anemia- Completed iron infusions -COVID positive, recovered IUGR in prior Declined MFM consult EFW at 20 weeks 30%ile Advanced cervical dilation: -Previously sent to [facility] for advanced cervical dilation. Stopped at 4 cm. Reobserved in triage subsequently with no further change. Received magnesium sulfate and corticosteroids on 11/20/2021 and 11/21/2021. -Admitted to [facility] and discharged with stable exam. Now meets criteria for delivery at [facility] O pos/ Rub immune VZV: immune Genetic testing: desires [place]; 46 XY MSAFP wnl FAS: posterior, CL 3.4, EFW 30%ile, 3VC. Mild bilateral renal pelviectasis was 4.6 and 4.7 mm. -US on 11/01/21 renal pelviectasis resolved Glucola:10/17/2021 95 Influenza: 07/29/2021 Tdap: 10/23/2021 Covid vax: fully vaccinated GBS: negative-12/11/21 HSV: Denies self and parter. Positive for oral HSV. Declines ppx Breast pump rx: given MOD: anticipate vaginal delivery pp contraception:Desires IUD pap: 02/08/20 wnl PMH Asthma Anxiety Depression Migraines Ovarian cyst Stomach ulcer PSH [place] teeth removal OB History -0-0-1 1. 12/19/2020, 37 weeks 2 days, , female, 2235 g, threatened labor, but progressed still term. SH Former everyday smoker. No alcohol or drug use. Family History Father: Alcoholism Paternal grandfather: Heart disease Aunt: CVA, breast cancer Allergies Zyrtec: Hot and flushed Medications Ferrous sulfate 3 and 25 mg twice a day Vitamin C vitamins Physical exam: General: Alert, oriented, no acute distress Head: Normal cephalic atraumatic Eyes: PERRLA, extraocular motions intact. Respiratory: Normal rate of respiration. No accessory muscle use, normal respiratory effort. Cardiovascular: Regular rate and rhythm Abdomen: Gravid, nontender, nondistended Extremities: Normal range of motion Neuro: Oriented x3. Normal movements Psych: Appropriate mood and affect. Normal judgment and insight SVE: 5/80/-2 FHT: 135 bpm baseline, moderate variability, accelerations present, no decelerations [place]: irregular ROM plus: Positive Plan 21-year-old -0-0-1 at 38 weeks 1 day gestation with spontaneous rupture of membranes 1. Spontaneous rupture of membranes -Admit to L&D, admit labs, epidural at patient's request -We will monitor contractions, but start oxytocin if hypotonic. -GBS is negative 2. 37 weeks gestation 3. Anxiety: 4. History of preeclampsia -Did have elevated blood pressure last visit as well as preeclampsia in previous . -CBC, CMP pending Meds/Allgy - Home Medications Home Medications: Ambulatory Orders Medication Instructions Recorded Confirmed SUMAtriptan [Imitrex] 25 mg PO BID PRN #10 tablet 06/15/19 Butalb/Acetaminophen/Caffeine 1 cap PO Q6H PRN #10 cap 06/02/21 [Fioricet 50-300-40 mg Capsule] Ondansetron Odt [Zofran] 4 mg TL Q6H PRN #10 tablet 06/02/21 - Allergies Allergies/Adverse Reactions: Allergies Allergy/AdvReac Type Severity Reaction Status Date / Time cetirizine HCl * Allergy Itching Verified 08/09/21 20:21 [From [place]]
[2021-12-24 05:20] LABS: BASOPHILS % (AUTO) 0.5 %; EOSINOPHILS % (AUTO) 0.6 %; HCT - HEMATOCRIT 32.2 % (37.0-47.0); HGB - HEMOGLOBIN 10.3 g/dL (12.0-16.0); LYMPHOCYTES % (AUTO) 19.1 %; MEAN CORPUSCULAR HEMOGLOBIN 27.7 pg (27.0-31.0); MEAN CORPUSCULAR VOLUME 86.6 fL (81.0-99.0); MEAN PLATELET VOLUME 11.5 fL (7.9-10.8); MONOCYTES % (AUTO) 9.8 %; NEUTROPHILS % (AUTO) 65.1 %; PLT - PLATELET COUNT 110 10^3/uL (130-450); RED BLOOD COUNT 3.72 10^6/uL (4.20-5.40); RED CELL DISTRIBUTION WIDTH 20.6 % (12.0-15.0); WHITE BLOOD COUNT 10.5 x10^3/uL (4.8-10.8)
[2021-12-24 05:21] LABS: ABNORMAL LYMPHS % (MANUAL) 0 %; BAND NEUTROPHILS % (MANUAL) 0 %
[2021-12-24 05:26] LABS: ALBUMIN 3.3 g/dL (3.2-5.5); BILIRUBIN,TOTAL 0.8 mg/dL (0.2-1.0); CALCIUM 8.6 mg/dL (8.5-10.3); CREATININE 0.6 mg/dL (0.4-1.0); POTASSIUM 3.8 mmol/L (3.5-5.0); TOTAL PROTEIN 6.7 g/dL (6.7-8.2)
[2021-12-24] MEDS ORDERED: LACTATED RINGERS 1,000 ML ONE (05:28)
[2021-12-24 05:34] LABS: EOSINOPHILS # (MANUAL) 0.1 10^3/uL (0-0.7); LYMPHOCYTES # (MANUAL) 1.4 10^3/uL (1.5-3.5); LYMPHOCYTES % (MANUAL) 13 %; METAMYELOCYTES % (MANUAL) 1 %; MONOCYTES # (MANUAL) 0.6 10^3/uL (0.0-1.0); MYELOCYTES % (MANUAL) 1 %; NEUTROPHILS # (MANUAL) 8.2 10^3/uL (1.5-6.6); PLATELET ESTIMATE, MANUAL DECREASED (<130,000) (NORMAL); PLATELET MORPHOLOGY NORMAL APPEARANCE (NORMAL); RBC MORPHOLOGY (MULTIPLE) 1+ ANISOCYTOSIS (NORMAL); WBC MORPHOLOGY (MULTIPLE) NORMAL APPEARANCE (NORMAL)
[2021-12-24 05:35] LABS: DIFFERENTIAL COMMENT MANUAL DIFFERENTIAL
--- NOTE | 2021-12-24 07:23 | ANESTHESIA ---
Pre-Anesthesia VS, & Labs - Diagnosis active labor - Procedure labor epidural Vital Signs: Temp Pulse Resp BP Pulse Ox 36.6 C 82 18 119/79 12/24/21 05:59 12/24/21 05:59 12/24/21 05:59 12/24/21 05:59 Height: 5 ft 3 in Weight (kg): 81.193 kg Body Mass Index: 31.6 BMI Classification: Obese - NPO >8 hours - Is Patient ?: Yes - Lab Results Current Lab Results: Laboratory Tests 12/24/21 05:00: Sodium 135, Potassium 3.8, Chloride 105, Carbon Dioxide 19 L, Anion Gap 11.0, BUN 5 L, Creatinine 0.6, Estimated GFR (MDRD) 125, Glucose 90, Calcium 8.6, Total Bilirubin 0.8, AST 19, ALT 13, Alkaline Phosphatase 153 H, Total Protein 6.7, Albumin 3.3, Globulin 3.4, Albumin/Globulin Ratio 1.0 12/24/21 05:00: WBC 10.5, RBC 3.72 L, Hgb 10.3 L, Hct 32.2 L, MCV 86.6, MCH 27.7, MCHC 32.0, RDW 20.6 H, Plt Count 110 L, MPV 11.5 H, Neut # (Auto) Not Reportable, Lymph # (Auto) Not Reportable, Bryan # (Auto) Not Reportable, Eos # (Auto) Not Reportable, Baso # (Auto) Not Reportable, Absolute Nucleated RBC Not Reportable, Total Counted 100, Band Neuts % (Manual) 0, Abnorm Lymph % (Manual) 0, Metamyelocytes % 1 H, Myelocytes % 1 H, Nucleated RBC % Not Reportable, Neutrophils # (Manual) 8.2 H, Lymphocytes # (Manual) 1.4 L, Monocytes # (Manual) 0.6, Eosinophils # (Manual) 0.1, Basophils # (Manual) 0.0, Differential Comment MANUAL DIFFERENTIAL, WBC Morphology NORMAL APPEARANCE, Platelet Estimate DECREASED (<130,000), Platelet Morphology NORMAL APPEARANCE, RBC Morph Micro Appear 1+ ANISOCYTOSIS 12/24/21 05:00: Blood Type O POSITIVE, Antibody Screen NEGATIVE Fish Bones: 12/24/21 05:00 12/24/21 05:00 Home Medications and Allergies Active Medications Carboprost Tromethamine (Carboprost Tromethamine 250 Mcg/Ml Amp) 250 mcg IM .ONCE PRN PRN Reason: Hemorrhage Fentanyl (Fentanyl 100 Mcg/2 Ml Vial) 50 mcg IVP Q1H PRN PRN Reason: Severe Pain (score 7-10) Hydralazine HCl (Hydralazine Inj 20 Mg/Ml Vial) 10 mg IVP .ONCE PRN; Protocol PRN Reason: Step 9 of Labetalol protocol Stop: 12/29/21 05:03 Oxytocin/Sodium Chloride (Pitocin/Sodium Chloride) 500 mls @ 999 mls/hr IV PRN PRN; Protocol PRN Reason: POST- HEMORR PREVENTION Tranexamic Acid (Tranexamic 1,000 Mg/100ml-Nacl) 1,000 mg in 100 mls @ 600 mls/hr IV Q30M PRN PRN Reason: EBL >1200mL and within 3hr Lactated Ringer's (Lr) 1,000 mls @ 125 mls/hr IV .Q8H DENISE Last Admin: 12/24/21 05:30 Dose: 125 mls/hr Labetalol HCl (Labetalol 20 Mg/4 Ml Syringe) 20 - 80 mg IVP Q10M PRN; Protocol PRN Reason: SBP> or= 160 OR DBP> or= 110 Labetalol HCl (Labetalol 20 Mg/4 Ml Syringe) 20 mg IVP .ONCE PRN; Protocol PRN Reason: SBP> or= 160 OR DBP> or= 110 Lidocaine HCl (Lidocaine-Mpf 1% 30 Ml Vial) 30 ml ID ONCE PRN PRN Reason: PERINEAL REPAIR Stop: 12/25/21 05:02 Methylergonovine Maleate (Methylergonovine 0.2 Mg/Ml Vial) 0.2 mg IM .ONCE PRN PRN Reason: Hemorrhage Misoprostol (Misoprostol 200 Mcg Tablet) 600 mcg BC .ONCE PRN PRN Reason: Hemorrhage Misoprostol (Misoprostol 200 Mcg Tablet) 800 mcg IA .ONCE PRN PRN Reason: Hemorrhage Oxytocin (Oxytocin 10 Unit/Ml Vial) 10 unit IM .ONCE PRN PRN Reason: Step One if no IV access. Sodium Chloride (Sodium Chloride Flush 0.9% 10 Ml Syringe) 10 ml IVP PRN PRN PRN Reason: NEEDED PER PROVIDER ORDERS Sodium Chloride (Sodium Chloride Flush 0.9% 10 Ml Syringe) 10 ml IVP Q8H [facility] Allergies/Adverse Reactions: Allergies Allergy/AdvReac Type Severity Reaction Status Date / Time cetirizine HCl * Allergy Itching Verified 08/09/21 20:21 [From [facility]] Anes History & Medical History - Anesthetic History Anesthesia Complications: reports: No previous complications Family history of Anesthesia Complications: Denies Family history of Malignant Hyperthermia: Denies - Medical History Cardiovascular: reports: None Pulmonary: reports: Asthma Gastrointestinal: reports: GERD Neuro: reports: Migraines Smoking Status: Current some day smoker - Obstetrical History : 2 Parity: 1 Events: reports: induced HTN Exam General: Alert, Oriented x3, Cooperative Dental: WNL Mouth Openin Fingerbreadth Neck Mobility: Normal Mallampati classification: II Thyromental Distance: 4-6 cm Respiratory: Lungs clear Cardiovascular: Regular rate Plan Anesthesia Type: Epidural Consent for Procedure(s) Verified and Reviewed: Yes Code Status: Attempt Resuscitation ASA classification: 2-Mild systemic disease Is this case an emergency?: No
[2021-12-24] MEDS ORDERED: NALBUPHINE 10 MG/ML AMP IVP PRN (07:24)
[2021-12-24] MEDS ORDERED: ONDANSETRON 4 MG/2 ML VIAL IVP PRN (07:24)
[2021-12-24] MEDS ORDERED: diphenhydrAMINE INJ 50 MG/ML VIAL IVP PRN (07:24)
[2021-12-24] MEDS ORDERED: METOCLOPRAMIDE 10 MG/2 ML VIAL IVP PRN (07:24)
[2021-12-24] MEDS ORDERED: ePHEDrine 50 MG/ML VIAL IVP PRN (07:24)
[2021-12-24] MEDS ORDERED: NALOXONE 0.4 MG/ML VIAL IVP PRN (07:24)
[2021-12-24] MEDS ORDERED: ROPIVACAINE 0.2% 200 MG/100 ML BAG EP ONE (07:38)
[2021-12-24] MEDS ORDERED: OXYTOCIN/SODIUM CHLORIDE 500 ML IV SCH (08:00)
[2021-12-24] MEDS ORDERED: LIDOCAINE-MPF 1% 30 ML VIAL ONE (12:57)
--- NOTE | 2021-12-24 13:26 | DELIVERY NOTE ---
Delivery Note - Labor Labor: positive: Spontaneous, Augmented by ARM, Augmented by oxytocin - Infant Delivery Method Infant Delivery Method: positive: Spontaneous vaginal delivery - Presentation Presentation: positive: Vertex, FABRICE - left occiput anterior - Nuchal Cord Nuchal Cord: positive: Present (x1) - Anesthetic Anesthetic: positive: Lidocaine - 1% plain Volume: positive: 5cc - Amniotic Fluid Description Amniotic Fluid Description: positive: Clear - Episiotomy Type Episiotomy Type: positive: None - Laceration Laceration: positive: 2nd degree - Suture Suture Type: positive: Vicryl Suture Size: positive: 3-0 - Delivery Outcome Delivery Outcome: positive: Livebirth - [place] : positive: Placed in direct skin contact with mother [place] sex: positive: Male - Cord Cord: positive: 3 vessels - Placenta Placenta: positive: Intact, Spontaneous, Expressed - Estimated Blood Loss Estimated Blood Loss (in cc): 100 - Post Delivery Events Post Delivery Events: positive: No post delivery events - Delivery Comments (Free Text/Narrative) Delivery Comments (Free Text/Narrative): 10100/+1 with bulging bag. AROM and maternal pushing started with good efforts. Head delivered FABRICE. Nuchal cord x1 not reduced. Shoulders and body delivered w ith ease. Nuchal cord reduced after delivery. Baby placed on mother's abdomen. Delayed cord clamping. 3vc. Placenta delivered spontaneously and intact. Fundus firm. Vagina and perineum inspected- second degree laceration noted. Area of left vaginal skin tag/protusion at site of laceration and this was trimmed. Repair completed in usual fashion with 3-0 vicryl. Hemostasis. Family bonding at bedside doing well.
[2021-12-24] MEDS ORDERED: ACETAMINOPHEN 325 MG TABLET PO PRN (13:27)
[2021-12-24] MEDS ORDERED: WITCH HAZEL/GLYCERIN 1 PAD TOP PRN (13:27)
[2021-12-24] MEDS ORDERED: HYDROCORTISONE 1% CREAM 28 GM TUBE PR PRN (13:27)
[2021-12-24] MEDS: IBUPROFEN 800 MG TABLET PO SCH ×2 (13:59→20:03)
[2021-12-24] MEDS: ACETAMINOPHEN 325 MG TABLET PO PRN ×2 (16:14→20:02)
[2021-12-24] MEDS: DOCUSATE SODIUM 100 MG CAPSULE PO SCH (20:03)
[2021-12-24] MEDS: SODIUM CHLORIDE FLUSH 0.9% 10 ML SYRINGE IVP SCH (20:03)
[2021-12-25] MEDS: ACETAMINOPHEN 325 MG TABLET PO PRN ×3 (00:16→08:11)
[2021-12-25] MEDS: IBUPROFEN 800 MG TABLET PO SCH ×2 (02:16→08:12)
[2021-12-25] MEDS: LACTATED RINGERS 1,000 ML IV SCH ×2 (07:23→07:24)
[2021-12-25] MEDS: SODIUM CHLORIDE FLUSH 0.9% 10 ML SYRINGE IVP SCH ×2 (07:23→07:24)
[2021-12-25] MEDS: DOCUSATE SODIUM 100 MG CAPSULE PO SCH (08:12)
[2021-12-25 08:16] VITALS: BP 122/67
--- NOTE | 2021-12-25 10:19 | Discharge Plan ---
Discharge Plan Problem Reviewed?: Yes Disposition: Home, Self Care Condition: Good Diet: Regular Activity Restrictions: No Restrictions Shower Restrictions: No Driving Restrictions: No Instruction Topics: Vaginal After No Smoking: If you smoke, Please STOP! Call for help. Follow-up with: Lorri Macias MD [Provider Admit Priv/Credential] -
--- NOTE | 2021-12-25 10:21 | DISCHARGE SUMMARY ---
Discharge Summary Admit Date: 12/24/21 Discharge Date: 12/25/21 Discharging Provider: Donald Root MD Code Status: Attempt Resuscitation Condition at Discharge: Good Discharge Disposition: 01 Home, Self Care - DIAGNOSES Admission Diagnoses: Term labor/ SROM Discharge Diagnoses with Status of Each Condition: Term labor/ SROM: Delivered Status post spontaneous vaginal delivery. - HPI History of Present Illness: Subjective Patient reports she is doing well. Lochia appropriate. Denies heavy bleeding. Ambulating. Pelvic and abdominal pain well-controlled. Tolerating oral intake. Diet: Regular. Voiding without difficulty. Passing flatus. Denies BM. Patient is bonding with baby in room Breast feeding going well. Denies feeling lightheaded, dizzy or excessively fatigue Objective General: Alert, oriented, no apparent distress. Cardiovascular: Regular rate. Regular rhythm. Lungs: No increased work of breathing. Abdomen: Uterus firm. Below umbilicus. No guarding or rebound. - HOSPITAL COURSE Hospital Course: Patient is a 21-year-old G2 now P2002 who presented at 38 weeks gestation with rupture of membranes and contractions. Her contractions were hypotonic and she was started on oxytocin for augmentation. She progressed to complete and began pushing. Second stage was only complicated by a nuchal cord. She had a second- degree laceration that was repaied at time of delievery. course was unremarkable and she was discharged on day 1 with her . weight 3340 grams. - ALLERGIES Allergies/Adverse Reactions: Allergies Allergy/AdvReac Type Severity Reaction Status Date / Time cetirizine HCl * Allergy Itching Verified 08/09/21 20:21 [From [facility]] - MEDICATIONS Home Medications: Ambulatory Orders Medication Instructions Recorded Confirmed SUMAtriptan [Imitrex] 25 mg PO BID PRN #10 tablet 06/15/19 Butalb/Acetaminophen/Caffeine 1 cap PO Q6H PRN #10 cap 06/02/21 [Fioricet 50-300-40 mg Capsule] Ondansetron Odt [Zofran Odt] 4 mg TL Q6H PRN #10 tablet 06/02/21 Acetaminophen [Acetaminophen Extra 1,000 mg PO Q8H PRN #60 tablet 12/25/21 Strength] Docusate Sodium 100Mg Capsule 100 - 200 mg PO BID PRN #60 cap 12/25/21 [Colace 100Mg Capsule] Ibuprofen [Motrin] 600 mg PO Q6H PRN #30 tab 12/25/21 - LABS Result Diagrams: 12/24/21 05:00 12/24/21 05:00 - FOLLOW UP Follow Up: Dr. Bowers in 1 week - TIME SPENT Time Spent in Discharge (Minutes): 20
--- NOTE | 2021-12-25 14:13 | Labor Flowsheet ---
Labor Flowsheet Datetime Report Generated by CPN: 12/25/2021 14:13 Datetime: 12/25/2021 08:14 VITAL SIGNS NBP Sys/Lanny/Mean (mmHg): 122 : 67 : 80 Pulse: 71 Datetime: 12/24/2021 19:15 SpO2 (%): 99 Datetime: 12/24/2021 12:46 Stage of : Recovery Datetime: 12/24/2021 12:42 Stage 2 Comments: placenta Datetime: 12/24/2021 12:31 LaborFlag: Labor Datetime: 12/24/2021 12:30 ASSESSMENT A Monitor Mode: External US FHR Baseline Rate : 120 Variability: Moderate 6-25 bpm Accelerations: 15X15 Decelerations: Variable Category: Category II Comments: variables to 90's with pushes Datetime: 12/24/2021 12:15 UTERINE ACTIVITY Monitor Mode: External Frequency (min): 2 Quality: Strong Duration (sec): 60-90 Pattern: Normal: <= 5 Contractions in 10 Minutes Resting Tone (Palpate): Relaxed Datetime: 12/24/2021 12:13 STAGE 2 Pushing: Coached on Pushing; No Urge to Push Pushing Position: Pushing with Contractions; Pushing Lithotomy Datetime: 12/24/2021 12:08 VAGINAL EXAM Dilatation (cm): 10.0 Vaginal Exam Comments: arom clear Datetime: 12/24/2021 12:05 I/O Interventions: Oleary Discontinued Datetime: 12/24/2021 11:57 COMMUNICATION Communication: Call/Page Placed to Provider Communication Comments: provider notified that pt is now awake. Will come assess. Datetime: 12/24/2021 11:43 MEDICATIONS Pitocin (milliunits): Increased to @ 6 Datetime: 12/24/2021 10:30 Pain Assessment Comments: pt napping Datetime: 12/24/2021 10:01 Pitocin Checklist: At Least 1 Acceleration of 15 bpm x 15 Seconds in 30 Minutes or Adequate Variabi lity; No More than 1 Late Deceleration Occurred in Past 30 Minutes; No More than 2 Variable Decelerat ions > 60 Seconds in Duration and decreasing >60 bpm in 30 minutes; No More than 5 Uterine Contractio ns in 10 Minutes for any 20 Minute Interval; Uterus Palpates Soft between Contractions Contraction Comments: pt not feeling any Datetime: 12/24/2021 09:45 Patient Care Comments: peanut ball under legs Datetime: 12/24/2021 09:29 Temperature (C): 36.7 Datetime: 12/24/2021 09:20 Patient Position/Activity: Right Tilt Datetime: 12/24/2021 08:26 ANESTHESIA Anesthesia Plans: 10cc's 1% lido given Datetime: 12/24/2021 08:22 Anesthesia Comments: pt getting bolused for right sided pain Datetime: 12/24/2021 08:10 Provider Reviewed Strip: Yes Strip Reviewed by: DrEwa Cayabyab Datetime: 12/24/2021 07:47 Epidural Procedure: Test Dose Datetime: 12/24/2021 07:18 Effacement (%): 80 Station: -2 Exam by: Dr. Root Datetime: 12/24/2021 06:45 FHR Baseline Changes: No Baseline Change Datetime: 12/24/2021 06:30 PAIN Pain Scale: 4 Pain Presence: Intermittent Pain Type: Cramping; Dull; Contraction Pain Location: Abdomen; Back; Right Groin; Left Groin; Right Hip; Left Hip Pain Goal: 7 Pain Relief Measures: Comfort Measures (Annotations: pt may opt for epidural pending next SVE by pr leoraer) Pain Coping: Breathing Through Contractions; Other (Annotations: Using nitrous with good pain relief) Datetime: 12/24/2021 05:40 Medication Comments: Nitrous oxide begun; directions and side effects Datetime: 12/24/2021 05:30 PATIENT CARE IV/Blood Work: IV Infusing per Order TEACHING Instructional Method: Verbal; Patient Instructed; Family/Support Person Instructed; Verbalized Unde rstanding Plan of Care: Plan of Care Discussed; Vaginal Delivery; Labor Unit Routine: Golden to Room; Call Claudio; Bed; Visiting Policy; Waiting Areas; Infant Security; Phon e/Cell Phone Use; Photography; Unit Personnel; Handwashing; Flu/Illness Precautions; Monitoring ; IV Pumps; Safety/Fall Risk Prevention; Diet/Nutrition Services; Bathroom Privileges; Routine Time O uts; Medications Datetime: 12/24/2021 05:12 Respirations: 20 Monitor Interventions for UA: [place] Adjusted Amniotic Fluid Odor: Normal Membrane Comments: SROM @ 0400 at home; positive ROM+ MATERNAL ASSESSMENT Level of Consciousness: Alert DTR's/Clonus: DTRs 2+; No Clonus Headache: Denies Breath Sounds, Left: Clear and Equal Breath Sounds, Right: Clear and Equal Nausea/Vomiting: Denies RUQ Epigastric Pain: Denies Comfort Measures: Breathing/Relaxation; Family Support
== END 2021-12-25 14:00 | disposition home or self-care (01) | DRG 806 ==
LOC: WFO 04:35 → FBP 04:35 → WFO 05:01 → FBP 05:02
PROVIDERS: ADMIT Obstetrics & Gynecology; ATTEND Obstetrics & Gynecology
PROC: 10907ZC Drainage of Amniotic Fluid, Therapeutic from Products of Conception, Via Natural or Artificial Opening (ICD-10-PCS; principal; 2021-12-24)
PROC: 10E0XZZ Delivery of Products of Conception, External Approach (ICD-10-PCS; 2021-12-24)
PROC: 0KQM0ZZ Repair Perineum Muscle, Open Approach (ICD-10-PCS; 2021-12-24)
DX: O70.1 Second degree perineal laceration during delivery (principal); O98.52 Other viral diseases complicating childbirth; Z37.0 Single live birth; B00.89 Other herpesviral infection; O69.81X0 Labor and delivery complicated by cord around neck, without compression, not applicable or unspecified; Z3A.38 38 weeks gestation of pregnancy; Z87.59 Personal history of other complications of pregnancy, childbirth and the puerperium; O99.02 Anemia complicating childbirth; Z86.16 Personal history of COVID-19; Z87.891 Personal history of nicotine dependence; O99.344 Other mental disorders complicating childbirth; F41.9 Anxiety disorder, unspecified; O99.214 Obesity complicating childbirth; O99.52 Diseases of the respiratory system complicating childbirth; J45.909 Unspecified asthma, uncomplicated
CPT/HCPCS: 80053; 84112; 85025; 86850; 86900; 86901; A9270; J7120; 99215

== ENCOUNTER 2021-12-28 14:48 | Observation (INO) | payer MEDICAID ==
[2021-12-28 15:06] LABS: BASOPHILS # (AUTO) 0.1 10^3/uL (0.0-0.1); BASOPHILS % (AUTO) 0.4 %; EOSINOPHILS # (AUTO) 0.2 10^3/uL (0.0-0.7); EOSINOPHILS % (AUTO) 1.4 %; HCT - HEMATOCRIT 34.9 % (37.0-47.0); LYMPHOCYTES # (AUTO) 1.1 10^3/uL (1.5-3.5); LYMPHOCYTES % (AUTO) 8.1 %; MEAN CORPUSCULAR HEMOGLOBIN 27.4 pg (27.0-31.0); MEAN CORPUSCULAR HGB CONC 31.5 g/dL (32.0-36.0); MEAN CORPUSCULAR VOLUME 86.8 fL (81.0-99.0); MEAN PLATELET VOLUME 10.4 fL (7.9-10.8); MONOCYTES # (AUTO) 1.2 10^3/uL (0.0-1.0); MONOCYTES % (AUTO) 8.2 %; NEUTROPHILS # (AUTO) 11.3 10^3/uL (1.5-6.6); NEUTROPHILS % (AUTO) 80.5 %; PLT - PLATELET COUNT 187 10^3/uL (130-450); RED BLOOD COUNT 4.02 10^6/uL (4.20-5.40); RED CELL DISTRIBUTION WIDTH 20.5 % (12.0-15.0); WHITE BLOOD COUNT 14.1 x10^3/uL (4.8-10.8)
[2021-12-28 15:18] LABS: ALBUMIN 3.1 g/dL (3.2-5.5); ALBUMIN/GLOBULIN RATIO 0.8 (1.0-2.2); BILIRUBIN,TOTAL 0.6 mg/dL (0.2-1.0); CALCIUM 8.5 mg/dL (8.5-10.3); CREATININE 0.6 mg/dL (0.4-1.0); POTASSIUM 3.8 mmol/L (3.5-5.0); TOTAL PROTEIN 6.8 g/dL (6.7-8.2)
[2021-12-28 15:22] LABS: BILIRUBIN,URINE NEGATIVE (NEGATIVE); GLUCOSE, URINE (UA) NEGATIVE (NEGATIVE); KETONES,URINE (UA) NEGATIVE (NEGATIVE); LEUKOCYTE ESTERASE, URINE TRACE (NEGATIVE); NITRITE,URINE NEGATIVE (NEGATIVE); OCCULT BLOOD,URINE LARGE (NEGATIVE); PH,URINE 7.5 PH (5.0-7.5); PROTEIN,URINE NEGATIVE (NEGATIVE); UROBILINOGEN,URINE 0.2 (NORMAL) E.U./dL (NORMAL)
[2021-12-28 15:26] LABS: CLARITY,URINE HAZY (CLEAR)
--- NOTE | 2021-12-28 15:26 | HISTORY & PHYSICAL EXAMINATION ---
Admit History - Visit Reason Visit Reason: Other (Body aches, generalized malaise Patient presented to labor and delivery with complaints of headaches body aches and generalized malaise for 2 days. She reports an uncomplicated vaginal delivery on 12/24.) - : 2 Parity: 2 Complications This : positive: None Smoking Status: Current some day smoker - Mother's Labs GBS: positive: Group B Step Negative Meds/Allgy - Home Medications Home Medications: Ambulatory Orders Medication Instructions Recorded Confirmed SUMAtriptan [Imitrex] 25 mg PO BID PRN #10 tablet 06/15/19 Butalb/Acetaminophen/Caffeine 1 cap PO Q6H PRN #10 cap 06/02/21 [Fioricet 50-300-40 mg Capsule] Ondansetron Odt [Zofran Odt] 4 mg TL Q6H PRN #10 tablet 06/02/21 Acetaminophen [Acetaminophen Extra 1,000 mg PO Q8H PRN #60 tablet 12/25/21 Strength] Docusate Sodium 100Mg Capsule 100 - 200 mg PO BID PRN #60 cap 12/25/21 [Colace 100Mg Capsule] Ibuprofen [Motrin] 600 mg PO Q6H PRN #30 tab 12/25/21 - Allergies Allergies/Adverse Reactions: Allergies Allergy/AdvReac Type Severity Reaction Status Date / Time cetirizine HCl * Allergy Itching Verified 08/09/21 20:21 [From [facility]] Review of Systems - Constitutional Constitutional: reports: Fatigue, Fever, Chills - Musculoskeletal Musculoskeletal: reports: Muscle aches Physical - Abdominal Exam Vital Signs: Temp Pulse Resp BP Pulse Ox 99.9 F 110 H 18 136/82 H 100 12/28/21 15:05 12/28/21 15:05 12/28/21 15:05 12/28/21 15:05 12/28/21 15:05 - Other Notes Labor Progress Note/Additional Text: Lungs with expiratory crackles noted bilaterally Plan for Labor - Plan For Labor I expect patient to be DC'd or transferred within 96 hours.: Yes Assessment/Plan - Problem List (1) Endometritis Assessment/Plan: Postop day 4 status post spontaneous vaginal delivery at 38 weeks after presenting with spontaneous rupture of membranes. Patient with low-grade fever and generalized malaise as well as fundal tenderness.. Ultrasound without retained products of conception. Will start clindamycin and gentamicin for presumptive endometritis. - Results Lab Results: Laboratory Results Sodium 137 mmol/L (135-145) 12/28/21 15:00 Potassium 3.8 mmol/L (3.5-5.0) 12/28/21 15:00 Chloride 102 mmol/L (101-111) 12/28/21 15:00 Carbon Dioxide 25 mmol/L (21-32) 12/28/21 15:00 Anion Gap 10.0 (6-13) 12/28/21 15:00 BUN 10 mg/dL (6-20) 12/28/21 15:00 Creatinine 0.6 mg/dL (0.4-1.0) 12/28/21 15:00 Glucose 84 mg/dL (70-100) 12/28/21 15:00 Calcium 8.5 mg/dL (8.5-10.3) 12/28/21 15:00 Total Bilirubin 0.6 mg/dL (0.2-1.0) 12/28/21 15:00 AST 17 IU/L (10-42) 12/28/21 15:00 ALT 14 IU/L (10-60) 12/28/21 15:00 Alkaline Phosphatase 123 IU/L (42-121) H 12/28/21 15:00 Total Protein 6.8 g/dL (6.7-8.2) 12/28/21 15:00 Albumin 3.1 g/dL (3.2-5.5) L 12/28/21 15:00 Globulin 3.7 g/dL (2.1-4.2) 12/28/21 15:00 Albumin/Globulin Ratio 0.8 (1.0-2.2) L 12/28/21 15:00 Additional Results: Lungs clear on x-ray - Home Meds/Allergies Allergies cetirizine HCl * [From [facility]] Allergy (Verified 08/09/21 20:21) Itching - Additional Planning My Orders: My Active Orders 12/28/21 14:50 Notify Provider - Specific Ins [RC] PRN OB Discharge Instructions [RC] .ONCE OB OP Discharge Criteria [RC] ONCE Vital Signs - OB [RC] .PER PROTOCOL Outpatient Status - Family Birthplace [OTHERS] Routine 12/28/21 15:10 CUL, URINE [RM] Stat 12/28/21 15:43 Pelvic Limited or F/U [US] Stat 12/28/21 15:48 Ibuprofen [Motrin] 800 mg PO Q8HR PRN 12/28/21 16:00 Clindamycin 900 mg/50 ml [Cleocin 900 mg/50 ml] 50 ml IV Q8HR 12/28/21 16:12 Pelvic Complete [US] Stat Transvaginal [US] Stat 12/28/21 Dinner Regular Diet [DIET] 12/28/21 16:30 Gentamicin [Gentamicin Sulfate] 280 mg Sodium Chloride 0.9% 100Ml [Normal Saline 0.9% 100Ml] 100 ml IV Q24H 12/28/21 17:00 Lactated Ringers [Lr] 1,000 ml IV TKO
[2021-12-28 15:29] LABS: CREATININE,URINE 104.8 mg/dL; PROTEIN/CREATININE RATIO,URINE 0.2 (<=0.2)
[2021-12-28 15:34] LABS: AMORPHOUS SEDIMENT,UR Rare /LPF; BACTERIA,URINE Few /HPF (None Seen); RBC,URINE TNTC /HPF (0-5); SQUAMOUS EPITHELIAL CELL,UR FEW Squamous (<= Few)
[2021-12-28] MEDS: GENTAMICIN 280 MG in SODIUM CHLORIDE 0.9% 100ML 100 ML IV SCH (16:15)
[2021-12-28] MEDS ORDERED: LACTATED RINGERS 1,000 ML IV SCH (17:00)
[2021-12-28] MEDS: CLINDAMYCIN 900 MG/50 ML 50 ML IV SCH (17:10)
[2021-12-28] MEDS: IBUPROFEN 800 MG TABLET PO PRN (17:21)
--- NOTE | 2021-12-28 17:36 | Ultrasound Report ---
PROCEDURE: Pelvic Complete INDICATIONS: possible retained placental fragments TECHNIQUE: Real-time scanning was performed of the pelvic organs, with image documentation. Additional endovagi nal scanning was necessary due to incomplete visualization of the adnexal and endometrial structures by transabdominal scanning. COMPARISON: OB ultrasound 12/18/2021. FINDINGS: No pathologic free abdominal or pelvic fluid. Uterus: Uterus is enlarged in size at 15 x 11.8 x 6.9 cm. Post gravid. Uterine echotexture is heter ogeneous. The endometrium measures 27 mm in combined thickness. No increased blood flow is seen. Het erogeneous hypoechoic area at the lower uterine segment. Ovaries: Right ovary measures 3.9 x 2.2 x 1.9 cm, estimated volume of 8 cc. Left ovary measures 4 x 1.9 x 1.7 cm, estimated volume of 7 cc. IMPRESSION: 1. Enlarged post gravid uterus. 2. Thick and endometrium measuring 27 mm. No focal areas of increased blood flow to suggest retained products of conception. Suspect a small clot at the lower uterine segment. 3. Ovaries are within normal limits. Reviewed by: Sincere Shaikh MD on 12/28/2021 4:35 PM [facility] Approved by: Sincere Shaikh MD on 12/28/2021 4:35 PM [facility] Station ID: [id number]
--- NOTE | 2021-12-28 17:37 | Ultrasound Report ---
PROCEDURE: Pelvic Complete INDICATIONS: possible retained placental fragments TECHNIQUE: Real-time scanning was performed of the pelvic organs, with image documentation. Additional endovagi nal scanning was necessary due to incomplete visualization of the adnexal and endometrial structures by transabdominal scanning. COMPARISON: OB ultrasound 12/18/2021. FINDINGS: No pathologic free abdominal or pelvic fluid. Uterus: Uterus is enlarged in size at 15 x 11.8 x 6.9 cm. Post gravid. Uterine echotexture is heter ogeneous. The endometrium measures 27 mm in combined thickness. No increased blood flow is seen. Het erogeneous hypoechoic area at the lower uterine segment. Ovaries: Right ovary measures 3.9 x 2.2 x 1.9 cm, estimated volume of 8 cc. Left ovary measures 4 x 1.9 x 1.7 cm, estimated volume of 7 cc. IMPRESSION: 1. Enlarged post gravid uterus. 2. Thick and endometrium measuring 27 mm. No focal areas of increased blood flow to suggest retained products of conception. Suspect a small clot at the lower uterine segment. 3. Ovaries are within normal limits. Reviewed by: Sincere Shaikh MD on 12/28/2021 4:35 PM [facility] Approved by: Sincere Shaikh MD on 12/28/2021 4:35 PM [facility] Station ID: [id number]
[2021-12-28] MEDS: ACETAMINOPHEN 325 MG TABLET PO PRN (21:23)
--- NOTE | 2021-12-28 21:35 | XRAY Report ---
PROCEDURE: Chest 2 View X-Ray INDICATIONS: expiratory wheezes, fever TECHNIQUE: 2 views of the chest. COMPARISON: None. FINDINGS: Surgical changes and devices: None. Lungs and pleura: No pleural effusions or pneumothorax. Lungs are clear. Mediastinum: Mediastinal contours are normal. Heart size is normal. Bones and chest wall: No suspicious bony abnormalities. Soft tissues appear unremarkable. IMPRESSION: No acute cardiopulmonary abnormality. Reviewed by: Skip Ott MD on 12/28/2021 9:33 PM [facility] Approved by: Skip Ott MD on 12/28/2021 9:33 PM [facility] Station ID: [id number]
[2021-12-29] MEDS: IBUPROFEN 800 MG TABLET PO PRN ×3 (01:03→17:49)
[2021-12-29] MEDS: CLINDAMYCIN 900 MG/50 ML 50 ML IV SCH ×3 (01:03→17:48)
[2021-12-29] MEDS: ACETAMINOPHEN 325 MG TABLET PO PRN ×3 (05:23→16:39)
--- NOTE | 2021-12-29 13:57 | Discharge Plan ---
Discharge Plan Problem Reviewed?: Yes Disposition: Home, Self Care Condition: Good Diet: Regular Activity Restrictions: Activity as Tolerated Shower Restrictions: No Driving Restrictions: No Additional Instructions or Follow Up instructions: Return to ED for increased abdominal pain, heavy vaginal bleeding, or fevers and chills. No Smoking: If you smoke, Please STOP! Call for help. Follow-up with: Donald Root MD [Provider Admit Priv/Credential] - 1 Week
--- NOTE | 2021-12-29 14:00 | DISCHARGE SUMMARY ---
Discharge Summary Admit Date: 12/28/21 Discharge Date: 12/29/21 Discharging Provider: Robbie Hoyos MD Condition at Discharge: Good Discharge Disposition: 01 Home, Self Care - DIAGNOSES Admission Diagnoses: endometritis Discharge Diagnoses with Status of Each Condition: endometritis - HOSPITAL COURSE Hospital Course: 21-year-old day 5 who presented with complaints of fevers and chills and generalized malaise. Patient was found to have endometritis. Ultrasound showed no retained products of conception. A chest x- ray was negative. She received IV antibiotics. She remained afebrile and was stable for discharge on hospital day 2. - ALLERGIES Allergies/Adverse Reactions: Allergies Allergy/AdvReac Type Severity Reaction Status Date / Time cetirizine HCl * Allergy Itching Verified 08/09/21 20:21 [From [facility]] - MEDICATIONS Home Medications: Ambulatory Orders Medication Instructions Recorded Confirmed SUMAtriptan [Imitrex] 25 mg PO BID PRN #10 tablet 06/15/19 Butalb/Acetaminophen/Caffeine 1 cap PO Q6H PRN #10 cap 06/02/21 [Fioricet 50-300-40 mg Capsule] Ondansetron Odt [Zofran Odt] 4 mg TL Q6H PRN #10 tablet 06/02/21 Acetaminophen [Acetaminophen Extra 1,000 mg PO Q8H PRN #60 tablet 12/25/21 Strength] Docusate Sodium 100Mg Capsule 100 - 200 mg PO BID PRN #60 cap 12/25/21 [Colace 100Mg Capsule] Ibuprofen [Motrin] 600 mg PO Q6H PRN #30 tab 12/25/21 - PHYSICAL EXAM AT DISCHARGE General Appearance: positive: No acute distress - LABS Result Diagrams: 12/28/21 15:00 12/28/21 15:00
[2021-12-29] MEDS: GENTAMICIN 280 MG in SODIUM CHLORIDE 0.9% 100ML 100 ML IV SCH (16:39)
[2021-12-29 19:05] VITALS: BP 126/78
--- NOTE | 2021-12-29 19:07 | Labor Flowsheet ---
Labor Flowsheet Datetime Report Generated by CPN: 12/29/2021 19:07 Datetime: 12/29/2021 13:20 VITAL SIGNS NBP Sys/Lanny/Mean (mmHg): 120 : 70 : 80 Pulse: 78
== END 2021-12-29 19:00 | disposition home or self-care (01) ==
LOC: WFO 14:48 → FBP 14:49 → WFO 19:08 → FBP 19:09
PROVIDERS: ADMIT Obstetrics & Gynecology; ATTEND Obstetrics & Gynecology
DX: O86.12 Endometritis following delivery (principal); F17.210 Nicotine dependence, cigarettes, uncomplicated; Z20.822 Contact with and (suspected) exposure to COVID-19
CPT/HCPCS: 36415; 71046; 76830; 76856; 80053; 81001; 82570; 84156; 85025; 87086; 87635; 96365; 96366; 96367; 96368; 99215; A9270; G0378; J7120; 81003

== ENCOUNTER 2022-02-08 08:00 | Outpatient (CLI) | payer MEDICAID ==
--- NOTE | 2022-02-08 16:35 | XRAY Report ---
PROCEDURE: Foot 3 View LT INDICATIONS: SPRAIN OF LEFT FOOT TECHNIQUE: 3 views of the foot were acquired. COMPARISON: None FINDINGS: Bones: No fractures or dislocations. No suspicious bony lesions. Soft tissues: No tibiotalar joint effusion. Achilles tendon appears normal. IMPRESSION: Unremarkable left foot radiographs Reviewed by: Irwin Tristan MD on 02/08/2022 3:34 PM [facility] Approved by: Irwin Tristan MD on 02/08/2022 3:34 PM [facility] Station ID: [id number]
== END 2022-02-08 23:59 | disposition home or self-care (01) ==
LOC: DI.N 08:00
PROVIDERS: ATTEND Nurse Practitioner
DX: S93.692A Other sprain of left foot, initial encounter (principal)

== ENCOUNTER 2022-10-23 08:00 | Outpatient (CLI) | payer MEDICAID ==
[2022-10-24 16:28] LABS: CHLAMYDIA TRACHOMATIS DNA NEGATIVE (NEGATIVE); NEISSERIA GONORRHOEAE DNA NEGATIVE (NEGATIVE); TRICHOMONAS VAGINALIS DNA NEGATIVE (NEGATIVE)
== END 2022-10-23 23:59 | disposition home or self-care (01) ==
LOC: LAB.WC 08:00
PROVIDERS: ATTEND Nurse Practitioner
DX: Z11.3 Encounter for screening for infections with a predominantly sexual mode of transmission (principal)
CPT/HCPCS: 87491; 87591; 87661

== ENCOUNTER 2023-11-09 14:41 | Outpatient (CLI) | payer OTHER, MEDICAID ==
[2023-11-09 15:04] LABS: BASOPHILS % (AUTO) 0.3 %; EOSINOPHILS # (AUTO) 0.1 10^3/uL (0.0-0.7); HCT - HEMATOCRIT 39.1 % (37.0-47.0); HGB - HEMOGLOBIN 12.6 g/dL (12.0-16.0); LYMPHOCYTES # (AUTO) 2.1 10^3/uL (1.5-3.5); LYMPHOCYTES % (AUTO) 34.4 %; MEAN CORPUSCULAR HGB CONC 32.2 g/dL (32.0-36.0); MEAN CORPUSCULAR VOLUME 90.1 fL (81.0-99.0); MONOCYTES # (AUTO) 0.6 10^3/uL (0.0-1.0); MONOCYTES % (AUTO) 9.9 %; NEUTROPHILS # (AUTO) 3.3 10^3/uL (1.5-6.6); NEUTROPHILS % (AUTO) 53.1 %; PLT - PLATELET COUNT 197 10^3/uL (130-450); RED BLOOD COUNT 4.34 10^6/uL (4.20-5.40); RED CELL DISTRIBUTION WIDTH 12.9 % (12.0-15.0); WHITE BLOOD COUNT 6.1 x10^3/uL (4.8-10.8)
[2023-11-09 16:53] LABS: ALBUMIN 4.8 g/dL (3.2-5.5); ALBUMIN/GLOBULIN RATIO 1.5 (1.0-2.2); ALKALINE PHOSPHATASE 58 IU/L (42-121); ALT ALANINE AMINOTRANSFERASE 11 IU/L (10-60); AST ASPARTATE AMINOTRANSFERASE 19 IU/L (10-42); BILIRUBIN,TOTAL 0.9 mg/dL (0.2-1.0); BUN - BLOOD UREA NITROGEN 11 mg/dL (6-20); CALCIUM 9.6 mg/dL (8.5-10.3); CARBON DIOXIDE - CO2 25 mmol/L (21-32); CHLORIDE 104 mmol/L (101-111); CHOL/HDL RATIO 3.3 (<4.4); CHOLESTEROL 182 mg/dL; CREATININE 0.7 mg/dL (0.6-1.3); GFR - MDRD 103 (>89); GLUCOSE 83 mg/dL (74-104); HDL CHOLESTEROL 55 mg/dL; LDL CHOLESTEROL,CALCULATED 114 mg/dL; LDL/HDL RATIO 2.1 (<4.4); POTASSIUM 3.7 mmol/L (3.5-4.5); SODIUM 136 mmol/L (135-145); TOTAL PROTEIN 7.9 g/dL (6.4-8.9); TRIGLYCERIDES 65 mg/dL (48-352); VLDL CHOLESTEROL 13 mg/dL
[2023-11-09 20:21] LABS: THYROID STIMULATING HORMONE 1.89 uIU/mL (0.34-5.60)
== END 2023-11-09 14:42 | disposition home or self-care (01) ==
LOC: LAB 14:41
PROVIDERS: ATTEND Registered Nurse
DX: Z13.228 Encounter for screening for other metabolic disorders (principal); Z13.220 Encounter for screening for lipoid disorders; Z13.29 Encounter for screening for other suspected endocrine disorder; Z13.0 Encounter for screening for diseases of the blood and blood-forming organs and certain disorders involving the immune mechanism
CPT/HCPCS: 36415; 80053; 80061; 83721; 84443; 85025

== ENCOUNTER 2024-01-08 17:12 | Emergency (ER) | payer OTHER, MEDICAID ==
[2024-01-08 18:00] LABS: INR 1.1 (0.8-1.2); PT - PROTHROMBIN TIME 11.4 secs (9.9-12.6)
[2024-01-08 18:08] LABS: ALBUMIN 4.8 g/dL (3.2-5.5); ALBUMIN/GLOBULIN RATIO 1.6 (1.0-2.2); ALKALINE PHOSPHATASE 68 IU/L (42-121); ALT ALANINE AMINOTRANSFERASE 12 IU/L (10-60); AST ASPARTATE AMINOTRANSFERASE 18 IU/L (10-42); BILIRUBIN,TOTAL 0.6 mg/dL (0.2-1.0); BUN - BLOOD UREA NITROGEN 7 mg/dL (6-20); CALCIUM 10.1 mg/dL (8.5-10.3); CARBON DIOXIDE - CO2 29 mmol/L (21-32); CHLORIDE 105 mmol/L (101-111); GFR - MDRD 68 (>89); GLUCOSE 102 mg/dL (74-104); POTASSIUM 4.2 mmol/L (3.5-4.5); SODIUM 140 mmol/L (135-145); TOTAL PROTEIN 7.8 g/dL (6.4-8.9)
--- NOTE | 2024-01-08 18:10 | ED Physician Documentation ---
History of Present Illness - Stated complaint Stated Complaint: SOA/DIZZY/BRUISING - Chief complaint Chief Complaint: General - History obtained from History obtained from: Patient - Additonal information Additional information: Recent diagnosis of bipolar 1 disorder. She was on Latuda and Lamictal was added more recently. Lamictal started a few weeks ago and then she started develop vertigo and dizzy spells. More recently over the last couple of days she has noticed easy bruising without other signs of easy bleeding such as heavy menses or dark or tarry stools. She also feels somewhat short of breath with this. She does have a history of anemia. No chest pain. PD PAST MEDICAL HISTORY - Past Medical History Past Medical History: Yes Cardiovascular: None Respiratory: Asthma Neuro: Migraines GI: GERD [employer] G[employer]ZER: Ovarian cysts Psych: Depression, Anxiety - Past Surgical History Past Surgical History: Yes - Present Medications Home Medications: Ambulatory Orders Medication Instructions Recorded Confirmed SUMAtriptan [Imitrex] 25 mg PO BID PRN #10 tablet 06/15/19 Butalb/Acetaminophen/Caffeine 1 cap PO Q6H PRN #10 cap 06/02/21 [Fioricet 50-300-40 mg Capsule] Ondansetron Odt [Zofran Odt] 4 mg TL Q6H PRN #10 tablet 06/02/21 Acetaminophen [Acetaminophen Extra 1,000 mg PO Q8H PRN #60 tablet 12/25/21 Strength] Docusate Sodium 100Mg Capsule 100 - 200 mg PO BID PRN #60 cap 12/25/21 [Colace 100Mg Capsule] Ibuprofen [Motrin] 600 mg PO Q6H PRN #30 tab 12/25/21 - Allergies Allergies/Adverse Reactions: Allergies Allergy/AdvReac Type Severity Reaction Status Date / Time cetirizine HCl * Allergy Itching Verified 01/08/24 17:30 [From [facility]] - Social History Does the pt smoke?: No Smoking Status: Never smoker Does the pt drink ETOH?: No Does the pt have substance abuse?: Yes - Immunizations Immunizations are current?: Yes - POLST Patient has POLST: No PD ED PE NORMAL - Vitals Vital signs reviewed: Yes - General General: Alert and oriented X 3, No acute distress - Neck Neck: Supple, no meningeal sign - Cardiac Cardiac: RRR, No murmur - Respiratory Respiratory: No respiratory distress, Clear bilaterally - Abdomen Abdomen: Non tender - Extremities Extremities: No edema, No calf tenderness / cord - Neuro Neuro: Alert and oriented X 3, Normal speech Results - Vitals Vitals: Vital Signs - 24 hr 01/08/24 17:27 Temperature 37 C Heart Rate 114 H Respiratory 16 Rate Blood Pressure 140/81 H O2 Saturation 100 Oxygen O2 Source Room air - EKG (time done) 1752 EKG releavant findings:: EKG personally interpreted by author of this note. Relevant findings are: Rate: Rate (enter#) (95) Rhythm: NSR, LAE Morrison: Normal Intervals: Normal CA QRS: Normal Ischemia: Non specific changes. No: ST elevation c/w ischemia - Labs Labs: Laboratory Tests 01/08/24 01/08/24 01/08/24 17:47 17:47 17:57 WBC 5.1 RBC 4.52 Hgb 13.2 Hct 40.7 MCV 90.0 MCH 29.2 MCHC 32.4 RDW 12.3 Plt Count 204 MPV 11.5 H Neut # (Auto) 2.6 Lymph # (Auto) 1.9 [place] # (Auto) 0.5 Eos # (Auto) 0.1 Baso # (Auto) 0.0 Absolute Nucleated RBC 0.00 Nucleated RBC % 0.0 PT 11.4 INR 1.1 Sodium 140 Potassium 4.2 Chloride 105 Carbon Dioxide 29 Anion Gap 6.0 BUN 7 Creatinine 1.0 Estimated GFR (MDRD) 68 L Glucose 102 Calcium 10.1 Total Bilirubin 0.6 AST 18 ALT 12 Alkaline Phosphatase 68 Troponin I High Sens < 2.3 L Total Protein 7.8 Albumin 4.8 Globulin 3.0 Albumin/Globulin Ratio 1.6 Urine Color Urine Clarity Urine pH Ur Specific [place] Urine Protein Urine Glucose (UA) Urine Ketones Urine Occult Blood Urine Nitrite Urine Bilirubin Urine Urobilinogen Ur Leukocyte Esterase Ur Microscopic Review Urine Culture Comments Urine HCG, Qual 01/08/24 18:00 WBC RBC Hgb Hct MCV MCH MCHC RDW Plt Count MPV Neut # (Auto) Lymph # (Auto) [place] # (Auto) Eos # (Auto) Baso # (Auto) Absolute Nucleated RBC Nucleated RBC % PT INR Sodium Potassium Chloride Carbon Dioxide Anion Gap BUN Creatinine Estimated GFR (MDRD) Glucose Calcium Total Bilirubin AST ALT Alkaline Phosphatase Troponin I High Sens Total Protein Albumin Globulin Albumin/Globulin Ratio Urine Color YELLOW Urine Clarity CLEAR Urine pH 7.0 Ur Specific [place] 1.020 Urine Protein NEGATIVE Urine Glucose (UA) NEGATIVE Urine Ketones NEGATIVE Urine Occult Blood NEGATIVE Urine Nitrite NEGATIVE Urine Bilirubin NEGATIVE Urine Urobilinogen 0.2 (NORMAL) Ur Leukocyte Esterase NEGATIVE Ur Microscopic Review NOT INDICATED Urine Culture Comments NOT INDICATED Urine HCG, Qual NEGATIVE PD Medical Decision Making - ED course ED course: She presents with easy bruising and dizzy spells after starting Lamictal. She is already contacted her psychiatrist who told her to stop it but wanted blood work done. Blood work was done, her CBC is normal with normal platelets and no anemia, INR normal, chemistry panel normal, troponin negative/normal, urine normal/negative, negative. Departure - Departure Disposition: 01 Home, Self Care Clinical Impression: Bruising, Dizziness Condition: Stable Record reviewed to determine appropriate education?: Yes Instructions: ED Dizziness UKO Comments: There were no worrisome diagnostic findings today. Your platelet count was normal at 204. Your INR which is a measure of blood clotting was normal at 1.1. You are not anemic, your hemoglobin is 13.2, hematocrit 40.7. Still given the timing I think it is reasonable to expect that a lot of your symptoms are from the Lamictal, and your psychiatrist has reportedly recommended stopping it until you can coordinate with him or her on Thursday. Return if worsening. Drink plenty of fluids. Forms: PCP List
[2024-01-08 18:12] LABS: TROPONIN I HIGH SENSITIVITY < 2.3 ng/L (2.3-14.8)
[2024-01-08 18:16] LABS: BASOPHILS % (AUTO) 0.4 %; EOSINOPHILS # (AUTO) 0.1 10^3/uL (0.0-0.7); EOSINOPHILS % (AUTO) 1.6 %; HCT - HEMATOCRIT 40.7 % (37.0-47.0); HGB - HEMOGLOBIN 13.2 g/dL (12.0-16.0); LYMPHOCYTES # (AUTO) 1.9 10^3/uL (1.5-3.5); LYMPHOCYTES % (AUTO) 37.7 %; MEAN CORPUSCULAR HEMOGLOBIN 29.2 pg (27.0-31.0); MEAN CORPUSCULAR HGB CONC 32.4 g/dL (32.0-36.0); MEAN PLATELET VOLUME 11.5 fL (7.9-10.8); MONOCYTES # (AUTO) 0.5 10^3/uL (0.0-1.0); MONOCYTES % (AUTO) 9.1 %; NEUTROPHILS # (AUTO) 2.6 10^3/uL (1.5-6.6); PLT - PLATELET COUNT 204 10^3/uL (130-450); RED BLOOD COUNT 4.52 10^6/uL (4.20-5.40); RED CELL DISTRIBUTION WIDTH 12.3 % (12.0-15.0); WHITE BLOOD COUNT 5.1 x10^3/uL (4.8-10.8)
[2024-01-08 18:17] LABS: BILIRUBIN,URINE NEGATIVE (NEGATIVE); GLUCOSE, URINE (UA) NEGATIVE (NEGATIVE); KETONES,URINE (UA) NEGATIVE (NEGATIVE); LEUKOCYTE ESTERASE, URINE NEGATIVE (NEGATIVE); NITRITE,URINE NEGATIVE (NEGATIVE); OCCULT BLOOD,URINE NEGATIVE (NEGATIVE); PROTEIN,URINE NEGATIVE (NEGATIVE); UROBILINOGEN,URINE 0.2 (NORMAL) E.U./dL (NORMAL)
[2024-01-08 18:20] LABS: CLARITY,URINE CLEAR (CLEAR); HCG UR QUAL NEGATIVE
[2024-01-08 18:48] VITALS: BP 117/79; O2SAT 97
== END 2024-01-08 18:46 | disposition home or self-care (01) ==
LOC: ED 17:12
DX: R23.3 Spontaneous ecchymoses (principal); R42 Dizziness and giddiness
CPT/HCPCS: 36415; 80053; 81001; 81003; 81025; 84484; 85025; 85610; 87086; 93005; 99283; 99284

== ENCOUNTER 2024-01-11 08:00 | Outpatient (CLI) | payer OTHER, MEDICAID ==
[2024-01-11 20:55] LABS: BASOPHILS % (AUTO) 0.7 %; EOSINOPHILS # (AUTO) 0.1 10^3/uL (0.0-0.7); EOSINOPHILS % (AUTO) 1.6 %; HCT - HEMATOCRIT 38.7 % (37.0-47.0); HGB - HEMOGLOBIN 12.4 g/dL (12.0-16.0); LYMPHOCYTES # (AUTO) 1.4 10^3/uL (1.5-3.5); LYMPHOCYTES % (AUTO) 31.9 %; MEAN CORPUSCULAR HEMOGLOBIN 29.3 pg (27.0-31.0); MEAN CORPUSCULAR VOLUME 91.5 fL (81.0-99.0); MEAN PLATELET VOLUME 11.3 fL (7.9-10.8); MONOCYTES # (AUTO) 0.4 10^3/uL (0.0-1.0); MONOCYTES % (AUTO) 8.7 %; NEUTROPHILS # (AUTO) 2.5 10^3/uL (1.5-6.6); NEUTROPHILS % (AUTO) 56.9 %; PLT - PLATELET COUNT 180 10^3/uL (130-450); RED BLOOD COUNT 4.23 10^6/uL (4.20-5.40); RED CELL DISTRIBUTION WIDTH 12.5 % (12.0-15.0); WHITE BLOOD COUNT 4.4 x10^3/uL (4.8-10.8)
[2024-01-11 21:02] LABS: CALCIUM 9.8 mg/dL (8.5-10.3); POTASSIUM 3.8 mmol/L (3.5-4.5)
== END 2024-01-11 23:59 | disposition home or self-care (01) ==
LOC: LAB.N 08:00
PROVIDERS: ATTEND Physician Assistant
DX: L04.8 Acute lymphadenitis of other sites (principal)
CPT/HCPCS: 36415; 80048; 85025

== ENCOUNTER 2024-01-12 20:26 | Emergency (ER) | payer OTHER, MEDICAID ==
[2024-01-12 20:55] VITALS: BP 129/73; O2SAT 100
[2024-01-12 21:29] LABS: BASOPHILS % (AUTO) 0.4 %; EOSINOPHILS # (AUTO) 0.1 10^3/uL (0.0-0.7); EOSINOPHILS % (AUTO) 2.2 %; HCT - HEMATOCRIT 41.2 % (37.0-47.0); HGB - HEMOGLOBIN 13.1 g/dL (12.0-16.0); LYMPHOCYTES # (AUTO) 2.1 10^3/uL (1.5-3.5); LYMPHOCYTES % (AUTO) 40.8 %; MEAN CORPUSCULAR HEMOGLOBIN 28.8 pg (27.0-31.0); MEAN CORPUSCULAR HGB CONC 31.8 g/dL (32.0-36.0); MEAN CORPUSCULAR VOLUME 90.5 fL (81.0-99.0); MEAN PLATELET VOLUME 10.8 fL (7.9-10.8); MONOCYTES # (AUTO) 0.5 10^3/uL (0.0-1.0); MONOCYTES % (AUTO) 8.9 %; NEUTROPHILS # (AUTO) 2.4 10^3/uL (1.5-6.6); NEUTROPHILS % (AUTO) 47.5 %; PLT - PLATELET COUNT 193 10^3/uL (130-450); RED BLOOD COUNT 4.55 10^6/uL (4.20-5.40); RED CELL DISTRIBUTION WIDTH 12.3 % (12.0-15.0); WHITE BLOOD COUNT 5.1 x10^3/uL (4.8-10.8)
[2024-01-12 21:59] LABS: ALBUMIN 4.7 g/dL (3.2-5.5); ALBUMIN/GLOBULIN RATIO 1.7 (1.0-2.2); BILIRUBIN,TOTAL 0.5 mg/dL (0.2-1.0); CREATININE 0.9 mg/dL (0.6-1.3); POTASSIUM 3.9 mmol/L (3.5-4.5); TOTAL PROTEIN 7.5 g/dL (6.4-8.9)
--- NOTE | 2024-01-12 22:44 | ED Physician Documentation ---
History of Present Illness - Stated complaint Stated Complaint: REACTION TO MED - Chief complaint Chief Complaint: General - History obtained from History obtained from: Patient - Additonal information Additional information: HPI from patient. Patient complains of fatigue for the past few days. She also notes a focal, tender swelling in the left postauricular area which she first noticed 2 days ago. Patient was recently treated and released from this emergency department (01/08/2024) with concerns regarding possible side effects from Lamictal. The workup at that time was unremarkable and included ER abdominal panel, INR, high- sensitivity troponin, CBC. Yesterday, the patient had an outpatient CBC; per patient, she was told findings were concerning for agranulocytosis and was advised to come to the ED when she was called with these results earlier this evening. Patient is still taking the Lamictal, as she was not advised that she needed to stop taking this medication and has been having good results with lamictal. Review of Systems Constitutional: denies: Fever, Chills, Sweats PD PAST MEDICAL HISTORY - Past Medical History Past Medical History: Yes Cardiovascular: None Respiratory: Asthma Neuro: Migraines Endocrine/Autoimmune: None GI: GERD [employer] HELPER: Ovarian cysts : None HEENT: None Psych: Depression, Anxiety Musculoskeletal: None Derm: None - Past Surgical History Past Surgical History: Yes - Present Medications Home Medications: Ambulatory Orders Medication Instructions Recorded Confirmed SUMAtriptan [Imitrex] 25 mg PO BID PRN #10 tablet 06/15/19 Dextroamphetamine/Amphetamine 5 mg PO DAILY 01/12/24 [Adderall 10 mg Tablet] lamoTRIgine [Lamictal] 100 mg PO DAILY 01/12/24 - Allergies Allergies/Adverse Reactions: Allergies Allergy/AdvReac Type Severity Reaction Status Date / Time cetirizine HCl * Allergy Itching Verified 01/12/24 20:44 [From [facility]] - Social History Does the pt smoke?: No Smoking Status: Never smoker Does the pt drink ETOH?: No Does the pt have substance abuse?: Yes - Immunizations Immunizations are current?: Yes - POLST Patient has POLST: No PD ED PE NORMAL - Vitals Vital signs reviewed: Yes - General General: Alert and oriented X 3, No acute distress, Well developed/nourished - Cardiac Cardiac: RRR, No murmur - Respiratory Respiratory: No respiratory distress, Clear bilaterally PD ED PE EXPANDED - HEENT HEENT: Other (solitary left post-auricular lymph node tenderness with mild swelling but no erythema nor fluctuance) Results - Vitals Vitals: Vital Signs - 24 hr 01/12/24 20:34 Temperature 36.7 C Heart Rate 80 Respiratory 17 Rate Blood Pressure 129/73 O2 Saturation 100 Oxygen O2 Source Room air - Labs Labs: Laboratory Tests 01/12/24 01/12/24 21:22 21:22 WBC 5.1 RBC 4.55 Hgb 13.1 Hct 41.2 MCV 90.5 MCH 28.8 MCHC 31.8 L RDW 12.3 Plt Count 193 MPV 10.8 Neut # (Auto) 2.4 Lymph # (Auto) 2.1 [place] # (Auto) 0.5 Eos # (Auto) 0.1 Baso # (Auto) 0.0 Absolute Nucleated RBC 0.00 Nucleated RBC % 0.0 Sodium 138 Potassium 3.9 Chloride 103 Carbon Dioxide 30 Anion Gap 5.0 L BUN 5 L Creatinine 0.9 Estimated GFR (MDRD) 77 L Glucose 85 Calcium 10.0 Total Bilirubin 0.5 AST 18 ALT 11 Alkaline Phosphatase 57 Total Protein 7.5 Albumin 4.7 Globulin 2.8 Albumin/Globulin Ratio 1.7 Lipase 23 PD Medical Decision Making - ED course Complexity details: reviewed results, considered differential, d/w patient ED course: Normal CBC except low MCHC (this is just below the normal range and, as an isolated finding and otherwise normal CBC, is noncontributory). Normal ER abdominal panel with exception of GFR 77 (just below normal level, also noncontributory finding and not abnormal to any concerning extent). I do note the CBC performed yesterday included white blood cell count of 4.4 but normal neutrophil count. Similarly, with her normal white blood cell count today as well as a normal neutrophil count, this effectively rules out agranulocytosis (patient is not even neutropenic on these results). Regarding the isolated, solitary lymphadenopathy (left postauricular), the cause of this finding is not apparent at this time. The swelling is not nearly large enough to indicate specific intervention such as antibiotic. Advised patient to follow with primary care provider for this abnormality if it persists beyond the next few days. At this point, no further emergent testing is necessary. I advised her that, at this time, I do not see a compelling reason for her to need to stop the Lamictal. However, I did advise her to get back in touch with her prescribing practitioner to arrange for reevaluation/follow-up. Departure - Departure Disposition: 01 Home, Self Care Clinical Impression: Lymphadenopathy Condition: Good Instructions: ED Cervical Adenitis No Abx Tx Comments: There were no notable abnormalities on tonight's blood work. Specifically, your white blood cell count is normal, and the breakdown of the different types of white blood cells are all also within normal limits. This effectively rules out agranulocytosis. As for the tender swelling on the left side of your scalp, as we discussed, this is likely an isolated swollen lymph node. The cause of such finding is often unclear, as it is in your case. Lymph nodes tend to swell when they are draining an infection; you do not have any sign nor symptom of a infection around that area of the lymph node, and the lymph node itself is not particularly swollen enough to indicate the need for an antibiotic. Discharge Date/Time: 01/12/24 23:32
== END 2024-01-12 23:32 | disposition home or self-care (01) ==
LOC: ED 20:26
DX: R79.9 Abnormal finding of blood chemistry, unspecified (principal); R59.0 Localized enlarged lymph nodes
CPT/HCPCS: 36415; 80053; 83690; 85025; 99283; 99284

== ENCOUNTER 2024-02-18 11:51 | Outpatient (CLI) | payer OTHER, MEDICAID ==
[2024-02-18 12:12] LABS: BASOPHILS % (AUTO) 0.5 %; EOSINOPHILS # (AUTO) 0.1 10^3/uL (0.0-0.7); EOSINOPHILS % (AUTO) 1.1 %; HCT - HEMATOCRIT 39.6 % (37.0-47.0); HGB - HEMOGLOBIN 12.6 g/dL (12.0-16.0); LYMPHOCYTES # (AUTO) 2.1 10^3/uL (1.5-3.5); MEAN CORPUSCULAR HEMOGLOBIN 28.7 pg (27.0-31.0); MEAN CORPUSCULAR HGB CONC 31.8 g/dL (32.0-36.0); MEAN CORPUSCULAR VOLUME 90.2 fL (81.0-99.0); MEAN PLATELET VOLUME 10.9 fL (7.9-10.8); MONOCYTES # (AUTO) 0.5 10^3/uL (0.0-1.0); MONOCYTES % (AUTO) 7.7 %; NEUTROPHILS # (AUTO) 3.8 10^3/uL (1.5-6.6); NEUTROPHILS % (AUTO) 58.4 %; PLT - PLATELET COUNT 179 10^3/uL (130-450); RED BLOOD COUNT 4.39 10^6/uL (4.20-5.40); RED CELL DISTRIBUTION WIDTH 12.6 % (12.0-15.0); WHITE BLOOD COUNT 6.5 x10^3/uL (4.8-10.8)
[2024-02-18 12:32] LABS: CRP - C-REACTIVE PROTEIN < 0.5 mg/dL (<0.5); URIC ACID 4.1 mg/dL (2.3-6.6)
[2024-02-18 14:28] LABS: RHEUMATOID FACTOR NEGATIVE (Negative)
[2024-02-19 17:08] LABS: ANTI-DNA (DS) AB QN <1 IU/mL (0-9)
== END 2024-02-18 11:52 | disposition home or self-care (01) ==
LOC: LAB 11:51
PROVIDERS: ATTEND Registered Nurse
DX: R53.82 Chronic fatigue, unspecified (principal)
CPT/HCPCS: 36415; 84550; 85025; 85651; 86038; 86140; 86200; 86225; 86430

== ENCOUNTER 2024-04-03 14:59 | Outpatient (CLI) | payer BC, MEDICAID | END 2024-04-03 15:00 | disposition home or self-care (01) | LOC: LAB 14:59 | PROVIDERS: ATTEND Nurse Practitioner | DX: Z32.01 Encounter for pregnancy test, result positive (principal) | CPT/HCPCS: 36415; 84702 ==